=== PATIENT | male | born 1955 | race Caucasian/White ===

== ENCOUNTER → 2023-05-27 11:56 | Outpatient (REF) | payer MEDICARE, OTHER, SELFPAY ==
[2023-05-27 12:05] LABS: % Basophils 0.4 % (0-2); % Immature Granulocytes 2.6 % (0-0.5); % Lymphocytes 5.2 % (20.5-51.1); % Monocytes 3.9 % (1.7-9.3); % Neutrophils 87.9 % (42.2-75.2); Absolute Basophils 0.1 10^3/uL (0-0.2); Absolute Immature Granulocytes 0.6 10^3/uL (0-0.05); Absolute Lymphocytes 1.1 10^3/uL (1.2-3.4); Absolute Monocytes 0.8 10^3/uL (0.1-0.6); Absolute Neutrophils 18.6 10^3/uL (1.4-6.5); Hematocrit 27.9 % (39.0-52.0); Hemoglobin 9.6 g/dL (13.0-18.0); Mean Corp Hgb Conc. 34.4 g/dL (33.0-37.0); Mean Corpuscular Hgb 32.1 pg (27.0-31.0); Mean Corpuscular Volume 93.3 fL (80.0-94.0); Nucleated Red Blood Cells % 0 % (-); Platelet Count 278 10^3/uL (130-400); Red Blood Cell Count 2.99 10^6/uL (4.70-6.10); Red Cell Dist. Width 15.5 % (11.5-14.5); White Blood Cell Count 21.2 10^3/uL (4.8-10.8)
[2023-05-27 12:19] LABS: ALT (SGPT) 21 U/L (0-50); AST (SGOT) 30 U/L (17-59); Albumin 4.6 g/dl (3.5-5.0); Alkaline Phosphatase 60 U/L (38-126); Blood Urea Nitrogen 8 mg/dl (9-20); Calcium 9.2 mg/dl (8.4-10.2); Carbon Dioxide 29 mmol/L (22-30); Chloride 101 mmol/L (98-107); Glucose 131 mg/dl (70-99); Sodium 134 mmol/L (135-145); Total Bilirubin 0.5 mg/dl (0.2-1.3); Total Protein 6.9 g/dl (6.3-8.2); eGFR > 60.00
[2023-05-27 12:42] LABS: Potassium 3.5 mmol/L (3.5-5.1)
== END ==
LOC: OIDL 11:56
PROVIDERS: ATTENDING PHYSICIAN Internal Medicine Hematology & Oncology
DX: C78.7 Secondary malignant neoplasm of liver and intrahepatic bile duct (principal)
CPT/HCPCS: 80053; 85025

== ENCOUNTER → 2023-06-17 09:46 | Outpatient (REF) | payer MEDICARE, OTHER, SELFPAY ==
[2023-06-17 09:47] LABS: % Basophils 0.3 % (0-2); % Eosinophils 0.3 % (0-6); % Immature Granulocytes 0.4 % (0-0.5); % Lymphocytes 9.7 % (20.5-51.1); % Monocytes 6.7 % (1.7-9.3); % Neutrophils 82.6 % (42.2-75.2); Absolute Immature Granulocytes 0.1 10^3/uL (0-0.05); Absolute Lymphocytes 1.2 10^3/uL (1.2-3.4); Absolute Monocytes 0.8 10^3/uL (0.1-0.6); Absolute Neutrophils 9.9 10^3/uL (1.4-6.5); Hematocrit 26.6 % (39.0-52.0); Hemoglobin 8.9 g/dL (13.0-18.0); Mean Corp Hgb Conc. 33.5 g/dL (33.0-37.0); Mean Corpuscular Hgb 33.2 pg (27.0-31.0); Mean Corpuscular Volume 99.3 fL (80.0-94.0); Platelet Count 167 10^3/uL (130-400); Red Blood Cell Count 2.68 10^6/uL (4.70-6.10); Red Cell Dist. Width 15.5 % (11.5-14.5)
[2023-06-17 10:29] LABS: ALT (SGPT) 17 U/L (0-50); AST (SGOT) 26 U/L (17-59); Albumin 4.4 g/dl (3.5-5.0); Alkaline Phosphatase 74 U/L (38-126); Blood Urea Nitrogen 13 mg/dl (9-20); Carbon Dioxide 30 mmol/L (22-30); Chloride 100 mmol/L (98-107); Glucose 117 mg/dl (70-99); Potassium 3.3 mmol/L (3.5-5.1); Sodium 134 mmol/L (135-145); Total Bilirubin 0.5 mg/dl (0.2-1.3); Total Protein 6.6 g/dl (6.3-8.2); eGFR > 60.00
[2023-06-17 15:18] LABS: LDH 212 U/L (120-246)
== END ==
LOC: OIDL 09:46
PROVIDERS: ATTENDING PHYSICIAN Internal Medicine Hematology & Oncology
DX: C78.7 Secondary malignant neoplasm of liver and intrahepatic bile duct (principal)
CPT/HCPCS: 80053; 83615; 85025

== ENCOUNTER → 2023-07-01 10:40 | Outpatient (REF) | payer MEDICARE, OTHER, SELFPAY | LOC: HWRAD 10:40 | PROVIDERS: ATTENDING PHYSICIAN Internal Medicine Hematology & Oncology; FAMILY PHYSICIAN Family Medicine | DX: C34.11 Malignant neoplasm of upper lobe, right bronchus or lung (principal) | CPT/HCPCS: 71260; 74177; Q9967 ==

== ENCOUNTER 2023-07-13 18:22 | Inpatient (IN) | payer MEDICARE, OTHER, SELFPAY ==
[2023-07-13] VITALS (16 sets, daily range): BP systolic 107–155; BP diastolic 70–88; BMI 29.7
--- NOTE | 2023-07-13 12:30 | ED.GENMED ---
History of Present Illness
General
Chief Complaint: Abdominal Pain
Time Seen by Provider: 07/13/23 12:25
Travel History
Have you had any contact with someone who has COVID-19?: No
Do you have any symptoms of coronavirus? Fever > 100 degrees, chills, cough, shortness of breath, sore throat, loss of taste or smell, muscle aches, or headache?: No
History of Present Illness
History of Present Illness:
59-year-old male with history of stage IV lung cancer metastasized to the liver presents to the emergency department for evaluation of bilateral lower abdominal pain. Feels some urinary retention but was able to void on arrival to the emergency
department. He does report increased abdominal pain while voiding. No fevers or chills. Did have some vomiting on arrival to the ER. Last chemo treatment was 3 days ago. Prior abdominal surgeries include appendectomy
Past History
Past History
ED Past Medical History: Cancer (Lung cancer metastatic), GERD, HTN, Other (Myasthenia gravis on immune suppression was CellCept, Pancoast tumor) and Other (diverticulitis, myasthenia gravis)
ED Past Surgical History: Appendectomy, Orthopedic and Other (Tonsillectomy, vasectomy)
Social History
Tobacco: Former smoker
Alcohol: Occasional
Drug: None
Personal:
Living: with family
Employment: Retired
Family History
Family History: Hypertension
Review of Systems
Review of Systems
Allergies reviewed?: Yes
All Other Systems: ROS reviewed and negative except as documented in HPI and ROS
Phy Exam
Physical Exam
Physical Exam:
GEN: Well appearing, NAD, WDWN
Eyes: PERRLA, EOMs intact, no scleral icterus
HENT: NCAT, oral mucosa moist, no JVD, no cervical adenopathy.
Lungs: CTAB, no wheezes, rales, rhonchi, normal chest wall excursion
Cardiac: RRR, no M/R/G, no peripheral edema. Radial pulses 2+ bilat
Abdomen: Soft, tenderness vaguely to the left side of the abdomen, no rigidity or peritoneal signs
Neuro: AO x 3
MSK: No gross deformity or ecchymosis. No edema. No digital clubbing
Skin: No rashes, petechiae. Normal color, no pallor or jaundice.
Psych: Calm, cooperative, proper hygiene
Course
Orders/Labs/Results
Orders:
Orders
07/13/23 12:30
CT Abd/Pel (IV only)-DH only Urgent
Comment:
Reason For Exam: lower abd pain, dysuria
07/13/23 12:40
Urinalysis Reflex To Culture Urgent
Date Specimen was Collected: 07/13/23
Time Specimen was Collected: 12:08
Urine Microscopic Reflex Cult Urgent
07/13/23 13:28
CMP [Comprehensive Metabolic Panel] Urgent
Complete Blood Count/With Diff Urgent
Lipase Urgent
07/13/23 14:24
0.9% Sodium Chloride 1000 ml [Nss] 1,000 ml IV BOLUS
07/13/23 15:24
Piperacillin/Tazo 3.375 Gram [Zosyn] 3.375 gram in 50 ml IV NOW
07/13/23 15:30
HYDROmorphone [Dilaudid] 0.5 mg IV NOW STA
07/13/23 15:40
Lactic Acid Urgent
Blood Culture Q30M
LIZ Source: Blood/Venous
Specimen Description:
Blood Culture Q30M
LIZ Source: Blood/Venous
Specimen Description:
07/13/23 16:24
Type+Screen Urgent
PTT Urgent
Prothrombin Time Urgent
07/13/23 16:32
Ondansetron Injectable [Zofran] 4 mg IV NOW STA
Abnormal Lab Results
07/13/23 07/13/23 07/13/23
12:40 13:28 15:40
RBC 2.60 L 10^6/uL
(4.70-6.10)
Hgb 9.0 L g/dL
(13.0-18.0)
Hct 26.0 L %
(39.0-52.0)
MCV 100.0 H fL
(80.0-94.0)
MCH 34.6 H pg
(27.0-31.0)
RDW 14.8 H %
(11.5-14.5)
Abs Immat Gran (auto) 0.1 H 10^3/uL
(0-0.05)
Absolute Neuts (auto) 10.2 H 10^3/uL
(1.4-6.5)
Absolute Lymphs (auto) 0.2 L 10^3/uL
(1.2-3.4)
Immature Gran % 1.2 H %
(0-0.5)
Neutrophils % 95.5 H %
(42.2-75.2)
Lymphocytes % 2.1 L %
(20.5-51.1)
Monocytes % 0.9 L %
(1.7-9.3)
PT
APTT
Sodium 132 L mmol/L
(135-145)
Chloride 95 L mmol/L
(98-107)
BUN 27 H mg/dl
(9-20)
Creatinine 0.5 L mg/dL
(0.7-1.3)
Glucose 126 H mg/dl
(70-99)
Lactic Acid 2.6 H mmol/L
(0.7-2.0)
Leukocyte Esterase Rfl Trace A
(Negative)
07/13/23
16:24
RBC
Hgb
Hct
MCV
MCH
RDW
Abs Immat Gran (auto)
Absolute Neuts (auto)
Absolute Lymphs (auto)
Immature Gran %
Neutrophils %
Lymphocytes %
Monocytes %
PT 15.3 H Sec
(11.4-14.6)
APTT 37.4 H Sec
(23.4-35.0)
Sodium
Chloride
BUN
Creatinine
Glucose
Lactic Acid
Leukocyte Esterase Rfl
07/13/23 13:28
07/13/23 13:28
Vital Signs
Initial and Last Documented VS:
Initial Vital Signs
Temp Pulse Resp BP Pulse Ox
98.6 F 94 18 109/70 97
07/13/23 11:55 07/13/23 11:55 07/13/23 11:55 07/13/23 11:55 07/13/23 11:55
Last Documented Vital Signs
Temp Pulse Resp BP Pulse Ox
98.6 F 96 23 128/74 99
07/13/23 11:55 07/13/23 17:15 07/13/23 17:15 07/13/23 17:00 07/13/23 17:15
MDM/Problems Addressed
MDM/Problems Addressed:
59-year-old male with history of metastatic lung cancer currently on chemotherapy presents to the emergency department for evaluation of acute onset lower abdominal pain. He is unfortunately found to have perforated diverticulitis with
subdiaphragmatic free air. Patient was promptly given IV fluids and antibiotics, colorectal surgery service was consulted. Patient will ultimately need operative intervention but the timing is not certain at this time. Will be admitted to the
hospitalist service for further management given his numerous medical comorbidities. If the patient requires urgent operative intervention tonight will need anticoagulant reversal with Kcentra. Patient also has a history myasthenia gravis thus
need to avoid fluoroquinolone class to avoid acute exacerbation
*Critical Care Note
Total Time (30-74mins, 75-104mins- exclusive of procedures): 60 minutes
comment:
Critical care time: 60 minutes
Critical care time was exclusive of: Separately billable procedures, treating other patients, and teaching time
Critical care was necessary to treat or prevent imminent or life-threatening deterioration of the following conditions: Perforated diverticulitis, lactic acidosis
Critical care time spent personally by me on the following activities:
[x] Review of old charts
[x] Obtaining history from patient or surrogate
[x] Ordering and review of the laboratory studies
[x] Ordering and review of radiographic studies
[x] Ordering and performing treatments and interventions
[x] Patient patient's response to treatment
[x] Development of treatment plan with patient or surrogate
Update Note
Update Note:
1524: [facility] message sent to colorectal surgery regarding abnormal CT, by my interpretation shows perforated divertic w/ free air
1546: Still no response. Priority [facility] message sent to colorectal surgery
1548: D/W radiology, confirmed above findings
1551: Response from [facility], Dr Ny operating currently
1618: Response from colorectalDr Ny will be over to see pt after office hours
1736: Dr Ny at bedside. Will discuss options with patient. OR timing uncertain. If tonight will need Kcentra
ED Attending Note
-
Portions of this chart may have been created with voice recognition software.� Occasional wrong word or��sound alike� substitutions may have occurred due to the inherent limitations of voice recognition software.
Discharge Plan
Departure
Patient Disposition: Admit
Date of Disposition: 07/13/23
Time of Disposition: 17:36
Admit to: IMU
Presentation/result/management discussed w/ accepting MD/DO: Hospitalist
Discharge Problem:
Diverticulitis of intestine with perforation
Prescriptions:
No Action
metoprolol tartrate 25 MG tablet
25 mg PO BID
fluticasone propionate 1 SPRAY spray,suspension
2 spray intranasal DAILY
amlodipine 10 MG tablet
10 mg PO DAILY Qty: 30 0RF
furosemide 20 MG tablet
20 mg PO BID
therapeutic multivitamin Tablet
1 tab PO DAILY
acetaminophen [Tylenol Extra Strength] 500 mg Tablet
1,000 mg PO BID@1200,2200
folic acid 1 mg Tablet
1 mg PO DAILY
saw palmetto 450 mg Capsule
450 mg PO DAILY
guaifenesin [Mucinex] 1,200 mg Tablet Extended Release 12hr
1,200 mg PO QPM
guaifenesin [Mucus Relief ER] 600 MG tablet extended release 12hr
600 mg PO DAILY
atorvastatin 40 mg Tablet
40 mg PO DAILY@2000 30 Days Qty: 30 0RF
pantoprazole 40 mg Tablet,Delayed Release (Dr/Ec)
40 mg PO BID@0700,1600 30 Days Qty: 60 0RF
omega 5-vhl-frc-fish oil [Fish Oil] 1,200 (144-216) mg Capsule
1 cap PO DAILY
docusate sodium 100 MG capsule
100 mg PO BID
citalopram 10 mg tablet
10 mg PO DAILY
ondansetron HCl 8 mg tablet
8 mg PO Q8H PRN (Reason: nausea/vomiting)
prochlorperazine maleate 10 mg tablet
10 mg PO Q6H PRN (Reason: nausea)
lidocaine-prilocaine 2.5-2.5 % cream
1 applic topical DAILY PRN (Reason: prior to port access)
mycophenolate mofetil 500 mg tablet
1,000 mg PO BID
dexamethasone 4 mg tablet
4 mg PO UD
Rx Instructions:
Take twice daily the day before, and for 2 days after chemo.
pyridostigmine bromide 60 mg tablet
30 mg PO QID
fenofibrate 160 mg tablet
160 mg PO DAILY
apixaban 5 mg Tablet
2.5 mg PO BID
potassium chloride 20 mEq tablet extended release
20 meq PO DAILY
Referrals:
Todd Gamboa MD [Family Provider] -
Interventions
Interventions:
*Risk Screen - Suicide Last Done: 07/13/23 11:55
*General Assessment Last Done: 07/13/23 11:55
*Neglect/Abuse Screening Last Done: 07/13/23 11:55
ED- Fall Risk Assessment Last Done: 07/13/23 12:16
*ED COVID-19 Vaccine History Last Done: 07/13/23 11:55
YU-Lhdwun-Hnkmskogqb Assessment Last Done: 07/13/23 12:16
[2023-07-13 12:57] LABS: Urine Albumin Trace (Neg - Trace); Urine Bilirubin Negative (Negative); Urine Character Clear (Clear); Urine Color Amber; Urine Glucose Negative (Negative); Urine Ketone Negative (Negative); Urine Leukocyte Trace (Negative); Urine Nitrite Negative (Negative); Urine Occult Blood Negative (Negative); Urine Urobilinogen Negative (Neg - 1+)
[2023-07-13 13:14] LABS: Urine Mucus Few
[2023-07-13 13:15] LABS: Urine Red Blood Cell 0-2 /HPF (0-2); Urine White Cell 0-2 /HPF (0-5)
[2023-07-13 13:34] LABS: % Basophils 0.3 % (0-2); % Immature Granulocytes 1.2 % (0-0.5); % Lymphocytes 2.1 % (20.5-51.1); % Monocytes 0.9 % (1.7-9.3); % Neutrophils 95.5 % (42.2-75.2); Absolute Immature Granulocytes 0.1 10^3/uL (0-0.05); Absolute Lymphocytes 0.2 10^3/uL (1.2-3.4); Absolute Monocytes 0.1 10^3/uL (0.1-0.6); Absolute Neutrophils 10.2 10^3/uL (1.4-6.5); Mean Corp Hgb Conc. 34.6 g/dL (33.0-37.0); Mean Corpuscular Hgb 34.6 pg (27.0-31.0); Mean Platelet Volume 9.5 fL (7.4-10.4); Nucleated Red Blood Cells % 0 % (-); Platelet Count 169 10^3/uL (130-400); Red Cell Dist. Width 14.8 % (11.5-14.5); White Blood Cell Count 10.7 10^3/uL (4.8-10.8)
[2023-07-13 13:46] LABS: ALT (SGPT) 28 U/L (0-50); AST (SGOT) 50 U/L (17-59); Albumin 4.3 g/dl (3.5-5.0); Alkaline Phosphatase 45 U/L (38-126); Blood Urea Nitrogen 27 mg/dl (9-20); Calcium 9.5 mg/dl (8.4-10.2); Carbon Dioxide 28 mmol/L (22-30); Chloride 95 mmol/L (98-107); Glucose 126 mg/dl (70-99); Potassium 3.8 mmol/L (3.5-5.1); Sodium 132 mmol/L (135-145); Total Bilirubin 1.1 mg/dl (0.2-1.3); Total Protein 6.5 g/dl (6.3-8.2); eGFR > 60.00
[2023-07-13 14:08] LABS: Lipase 32 U/L (23-300)
[2023-07-13] MEDS: NSS 1000 IV ×2 (14:28→21:37)
[2023-07-13] MEDS: ZOSYN 50 IV ×2 (15:43→21:52)
[2023-07-13] MEDS: DILAUDID 0.5 MG IV ×2 (15:43→22:32)
[2023-07-13 16:05] LABS: Lactic Acid 2.6 mmol/L (0.7-2.0)
[2023-07-13] MEDS: ZOFRAN 4 MG IV (16:36)
[2023-07-13 16:45] LABS: INR 1.23; PT 15.3 Sec (11.4-14.6)
[2023-07-13 16:47] LABS: APTT 37.4 Sec (23.4-35.0)
--- NOTE | 2023-07-13 18:07 | HPS.HSE ---
Family Physician
-
Family Physician: Todd Gamboa
Chief Complaint
-
abdominal pain
History of Present Illness
67-year-old male past medical history of diverticulitis, stage IV lung cancer with metastases to liver on chemotherapy, SVC syndrome, hypertension, GERD, myasthenia gravis, chronic lower extremity edema, BPH, hyperlipidemia presenting for left lower
quadrant abdominal pain which started yesterday. He did have a fever and chills today. He did have nausea and a little bit of vomiting of mucus. He did have a bowel movement yesterday.
Patient last received chemotherapy 3 days ago.
He did have some blood in the urine today which is since resolved. He last took Eliquis this morning.
Medical History
Past Medical History
Past Medical History: Reports Other (diverticulitis, stage IV lung cancer with metastases to liver on chemotherapy, SVC syndrome, hypertension, GERD, myasthenia gravis, chronic lower extremity edema, BPH, hyperlipidemia)
Past Surgical History: Reports Other (Appendectomy, Orthopedic and Other (Tonsillectomy, vasectomy))
Social History
Tobacco: Former Smoker
Alcohol: Occasional
Drug: None
Family History
Family History: Not pertinent
Allergies / Home Medications
Allergies reflects when Allergies were last updated in [facility].
Home Medications with original date entered in [facility]
Allergy/Medication List:
Allergies
Allergy/AdvReac Type Severity Reaction Status Date / Time
No Known Allergies Allergy Verified 07/13/23 11:58
Home Medications
metoprolol tartrate 25 mg tablet 25 mg PO BID Blood pressure 10/10/17
fluticasone propionate 50 mcg/actuation nasal spray,suspension 2 spray intranasal DAILY Congestion 04/13/20
amlodipine 10 mg tablet 10 mg PO DAILY #30 tabs 04/24/20
furosemide 20 mg tablet 20 mg PO BID Fluid retention/Swelling 05/01/20
acetaminophen 500 mg tablet (Tylenol Extra Strength) 1,000 mg PO BID@1200,2200 Pain 02/02/23
folic acid 1 mg tablet 1 mg PO DAILY Supplement 02/02/23
guaifenesin 1,200 mg tablet, extended release 12 hr (Mucinex) 1,200 mg PO QPM Cough 02/02/23
guaifenesin 600 mg tablet, extended release 12 hr (Mucus Relief ER) 600 mg PO DAILY Cough 02/02/23
saw palmetto 450 mg capsule 450 mg PO DAILY Supplement 02/02/23
therapeutic multivitamin 1 tab PO DAILY Supplement 02/02/23
atorvastatin 40 mg tablet 40 mg PO DAILY@1999 30 days #30 tabs 02/07/23
pantoprazole 40 mg tablet,delayed release 40 mg PO BID@0700,1600 30 days #60 tabs 02/07/23
omega 4-pyf-qif-fish oil 1,200 mg (144 mg-216 mg) capsule (Fish Oil) 1 cap PO DAILY 03/03/23
docusate sodium 100 mg capsule 100 mg PO BID 03/06/23
apixaban 5 mg tablet 2.5 mg PO BID 07/13/23
citalopram 10 mg tablet 10 mg PO DAILY 07/13/23
dexamethasone 4 mg tablet 4 mg PO UD 07/13/23
fenofibrate 160 mg tablet 160 mg PO DAILY 07/13/23
lidocaine-prilocaine 2.5 %-2.5 % topical cream 1 applic topical DAILY PRN prior to port access 07/13/23
mycophenolate mofetil 500 mg tablet 1,000 mg PO BID 07/13/23
ondansetron HCl 8 mg tablet 8 mg PO Q8H PRN nausea/vomiting 07/13/23
potassium chloride 20 mEq tablet,extended release 20 meq PO DAILY 07/13/23
prochlorperazine maleate 10 mg tablet 10 mg PO Q6H PRN nausea 07/13/23
pyridostigmine bromide 60 mg tablet 30 mg PO QID 07/13/23
Review of Systems
-
History Source: Patient
A 12 point ROS was completed and negative except as noted: Yes
Constitutional: Reports No Symptoms
EENT: Reports No Symptoms
Respiratory: Reports No Symptoms
Cardiac: Reports No Symptoms
Abdomen/GI: Reports See HPI
: Reports No Symptoms
Musculoskeletal: Reports No Symptoms
Skin: Reports No Symptoms
Neurological: Reports No Symptoms
Endocrine: Reports No Symptoms
Hematologic/Lymphatic: Reports No Symptoms
Psych: Reports No Symptoms
Physical Exam
Vital Signs
Vital Signs
Temp Pulse Resp BP Pulse Ox
98.6 F 97 22 128/74 97
07/13/23 11:55 07/13/23 17:30 07/13/23 17:30 07/13/23 17:00 07/13/23 17:30
Physical Exam
General: Well Developed, Well Nourished and No Apparent Distress
HEENT: NormoCephalic, Moist mucous membranes and Atraumatic
Respiratory: Clear
Cardiac: S1/S2 and Regular Rhythm; No Murmur or Rub
GI: Soft, Non Distended, Normal Bowel Sounds and Tender (rebound tenderness diffusely ); No Organomegaly
Rectal: Deferred by Provider
Musculoskeletal: No Clubbing, No Cyanosis and No Edema
Skin: No Rash
Neuro: Nonfocal/grossly intact
Laboratory Results
-
07/13/23 13:28
07/13/23 13:28
Laboratory Results
PT 15.3 Sec (11.4-14.6) H 07/13/23 16:24
INR 1.23 07/13/23 16:24
APTT 37.4 Sec (23.4-35.0) H 07/13/23 16:24
Lactic Acid 2.6 mmol/L (0.7-2.0) H 07/13/23 15:40
Total Bilirubin 1.1 mg/dl (0.2-1.3) 07/13/23 13:28
AST 50 U/L (17-59) 03/18/24 13:28
ALT 28 U/L (0-50) 07/13/23 13:28
Alkaline Phosphatase 45 U/L (38-126) 07/13/23 13:28
Lipase 32 U/L (23-300) 07/13/23 13:28
Data Reviewed
-
Lab Data: Labs Reviewed by me
Old Records: Reviewed
Impression/Plan
-
IMPRESSION:
PLAN:
# Diverticulitis with abscess/perforation
-CT abdomen pelvis shows acute diverticulitis with 3.5 cm fluid collection at the anterior margin of the sigmoid colon and free intraperitoneal air
-N.p.o. including oral medications due to plan for potential surgery tonight
-Check blood cultures
-IV fluids
-Hold Lasix
-Zosyn
-Hold Eliquis
-Dilaudid for pain
-Colorectal surgery consulted. Plan for OR either tonight or tomorrow
-Colorectal recommending Kcentra
# Resolved incidence of hematuria
-Check urinalysis
-Outpatient follow-up with urology
-Eliquis held for now
#Progressive macrocytic anemia
-Check iron studies, B12 and folate
-Hold folate
Stage IV lung cancer with metastasis to liver on chemotherapy
-On dexamethasone with chemotherapy
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
-Hold Eliquis
Essential hypertension
-Hold amlodipine, metoprolol
GERD
-Hold Protonix
Myasthenia gravis
-Hold pyridostigmine, mycophenolate
Chronic lower extremity edema
-Hold Lasix
BPH
Hyperlipidemia
-Continue statin, fenofibrate
Anxiety/depression
-Hold citalopram
Full code
DVT prophylaxis�SCDs
N.p.o.
--- NOTE | 2023-07-13 18:22 | CON.CRS ---
Consultation
-
Date/Time Consultation Requested: 07/13/23 @15:46
Date/Time Consultation Performed: 07/13/23 @17:30
Requesting Provider: Freddie Monae PA-C
Performing Provider: Wale Ny MD
Reason for Consultation: Perforated sigmoid diverticulitis
Medical History
-
Chief Complaint: Abdominal pain
History of Present Illness:
67-year-old male with metastatic lung cancer currently on chemotherapy and Eliquis, myasthenia gravis, SVC syndrome, hypertension, who presents to the emergency room with abdominal pain that began yesterday. He has a history of diverticulitis in
the past and he has been having some irregular bowels with intermittent abdominal pain possibly due to chemotherapy. The pain became excruciating associated with fevers and chills today. At present his stools are loose and he is having some
nausea. He is currently on Taxotere and Cyramza and his last dose was 3 days ago. He is on Eliquis 2.5mg bid for SVC syndrome with thrombus in the SVC and right internal jugular; his last dose was this morning.
In the ER he is afebrile and his pulse is around 100. His blood pressure is stable and he is oxygenating well. His white count is 10.7 and his hemoglobin is 9.0. A CT scan of the abdomen pelvis with IV contrast only reveals findings consistent
with acute sigmoid diverticulitis with 3.5 cm pericolonic abscess and free intra-abdominal air. There is also known liver metastases.
Past Medical History
Past Medical History: Cancer (lung cancer metastatic to liver), Diverticulitis, HTN and Other (Myasthenia gravis, SVC syndrome)
Past Surgical History: Appendectomy
Social History
Tobacco: Former Smoker
Alcohol: Occasional
Drug: None
Personal:
Living: With Family
Family History
Family History: Reviewed & Not Pertinent
Allergies / Home Medications
Allergy/AdvReac Type Severity Reaction Status Date / Time
No Known Allergies Allergy Verified 07/13/23 11:58
Medication Instructions Recorded Confirmed Type
metoprolol tartrate 25 mg tablet 25 mg PO BID Blood pressure 10/10/17 07/13/23 History
fluticasone propionate 50 2 spray intranasal DAILY Congestion 04/13/20 07/13/23 History
mcg/actuation nasal
spray,suspension
amlodipine 10 mg tablet 10 mg PO DAILY #30 tabs 04/24/20 07/13/23 Rx
furosemide 20 mg tablet 20 mg PO BID Fluid 05/01/20 07/13/23 History
retention/Swelling
acetaminophen 500 mg tablet 1,000 mg PO BID@1200,2200 Pain 02/02/23 07/13/23 History
(Tylenol Extra Strength)
folic acid 1 mg tablet 1 mg PO DAILY Supplement 02/02/23 07/13/23 History
guaifenesin 1,200 mg tablet, 1,200 mg PO QPM Cough 02/02/23 07/13/23 History
extended release 12 hr (Mucinex)
guaifenesin 600 mg tablet, 600 mg PO DAILY Cough 02/02/23 07/13/23 History
extended release 12 hr (Mucus
Relief ER)
saw palmetto 450 mg capsule 450 mg PO DAILY Supplement 02/02/23 07/13/23 History
therapeutic multivitamin 1 tab PO DAILY Supplement 02/02/23 07/13/23 History
atorvastatin 40 mg tablet 40 mg PO DAILY@1999 30 days #30 02/07/23 07/13/23 Rx
tabs
pantoprazole 40 mg tablet,delayed 40 mg PO BID@0700,1600 30 days #60 02/07/23 07/13/23 Rx
release tabs
omega 9-lnc-xku-fish oil 1,200 mg 1 cap PO DAILY 03/03/23 07/13/23 History
(144 mg-216 mg) capsule (Fish Oil)
docusate sodium 100 mg capsule 100 mg PO BID 03/06/23 07/13/23 History
apixaban 5 mg tablet 2.5 mg PO BID 07/13/23 07/13/23 History
citalopram 10 mg tablet 10 mg PO DAILY 07/13/23 07/13/23 History
dexamethasone 4 mg tablet 4 mg PO UD 07/13/23 07/13/23 History
fenofibrate 160 mg tablet 160 mg PO DAILY 07/13/23 07/13/23 History
lidocaine-prilocaine 2.5 %-2.5 % 1 applic topical DAILY PRN prior 07/13/23 07/13/23 History
topical cream to port access
mycophenolate mofetil 500 mg tablet 1,000 mg PO BID 07/13/23 07/13/23 History
ondansetron HCl 8 mg tablet 8 mg PO Q8H PRN nausea/vomiting 07/13/23 07/13/23 History
potassium chloride 20 mEq 20 meq PO DAILY 07/13/23 07/13/23 History
tablet,extended release
prochlorperazine maleate 10 mg 10 mg PO Q6H PRN nausea 07/13/23 07/13/23 History
tablet
pyridostigmine bromide 60 mg tablet 30 mg PO QID 07/13/23 07/13/23 History
Review of Systems
-
History Source: Patient
All other systems: Negative unless noted
A 10 point review of systems was completed, and was negative except as per HPI.
Physical Exam
Vital Signs
Temp 98.6 F 07/13/23 11:55
Pulse 97 07/13/23 17:30
Resp Rate 22 07/13/23 17:30
Blood pressure 128/74 07/13/23 17:00
SaO2 97 07/13/23 17:30
07/12/23 07/13/23 07/14/23
06:59 06:59 06:59
Actual Weight 91.3 kg
Lab Results / Allergies
07/13/23 13:28
07/13/23 13:28
WBC 10.7 10^3/uL (4.8-10.8) 07/13/23 13:28
Hgb 9.0 g/dL (13.0-18.0) L 07/13/23 13:28
Hct 26.0 % (39.0-52.0) L 07/13/23 13:28
Plt Count 169 10^3/uL (130-400) 07/13/23 13:28
Abs Immat Gran (auto) 0.1 10^3/uL (0-0.05) H 07/13/23 13:28
Neutrophils % 95.5 % (42.2-75.2) H 07/13/23 13:28
Allergy/AdvReac Type Severity Reaction Status Date / Time
No Known Allergies Allergy Verified 07/13/23 11:58
Physical Exam
General: Well Developed, Well Nourished and Pain
HEENT: Anicteric
Respiratory: Clear
GI: Soft and Tender (In all 4 quadrants with peritonitis, worse in the left lower quadrant)
Musculoskeletal: Edema
Skin: Warm
Neuro: Awake and Alert
Data Reviewed
-
CT Scan: Image Personally Visualized and interpreted, Report Reviewed by me, Discussed with Patient and Discussed with Family
Labs: Labs Reviewed by me, Discussed with Patient and Discussed with Family
Total Time Spent with Patient (in minutes): 80
Assessment / Plan
-
Perforated sigmoid diverticulitis with peritonitis in a patient on chemotherapy for metastatic lung cancer and anticoagulation.
I reviewed the current findings with the patient, his and daughter and discussed the treatment options. We discussed nonoperative management with bowel rest and antibiotics and surgery if his condition worsens versus surger tonight. Without
surgery there is a risk that his condition worsens. Surgery will involve a colostomy which is technically temporary, but could be permanent given his underlying condition. He is at high risk for surgery. Risks of surgery include, but are not
limited to, bleeding, (especially in light of his OAC), infection, adhesions, hernias, DVT, injury to other structures, stoma complications, recurrent infection, poor wound healing given his recent chemotherapy, cardiopulmonary complications with
prolonged ventilation, and even . I reviewed the typical recovery both in and out of the hospital and after he discussed it with his family, he wishes to proceed with surgery since his pain is not manageable. Kcentra and antibiotics have been
ordered as well as type and screen. He will be monitored postoperatively either in the ICU or in the IMU depending upon his ventilation status. There was ample time for discussion, all questions answered and arrangements are in progress for the OR.
[2023-07-13 19:05] LABS: INR 1.24; PT 15.4 Sec (11.4-14.6)
[2023-07-13 19:06] LABS: APTT 39.6 Sec (23.4-35.0); Fibrinogen 421 MG/DL (199-459)
--- NOTE | 2023-07-13 21:23 | W.IMMPOSTOP ---
Surgical Immed Post Op Note
-
Primary Surgeon: Wale Ny MD
Endocrinology Teacher: ERAN Springer
Pre-op Diagnosis: Perforated sigmoid diverticulitis
Post-op Diagnosis: Perforated sigmoid diverticulitis
Procedure Performed: Exploratory laparotomy, sigmoid resection and end colostomy (Smith's procedure)
Anesthesia Type: GETA, TYRONE block
Specimen / Cultures: Aerobic and anaerobic cultures
Sigmoid colon (suture is distal)
Estimated Blood Loss: 20 cc
Complications: None
Operative Findings: Diffuse purulent peritonitis (Hinchey III)
Perforated mid sigmoid diverticulitis
NG tube in the fundus of the stomach
Patient's family updated in the waiting room.
--- NOTE | 2023-07-13 22:50 | PTCARENOTE ---
Received pt from [facility]. Pt is AAOx3, [place]. Sinus tach on the monitor. On 2L NC O2 sat 99%, lungs clear, tachypneic. Silva in place for critical I&Os. Colostomy in place. R nare NG in place with continuous suction. Midline abd incision dressing in
place. SCDs in place. NS infusing @ 100 ml/hr. Pt c/o abd pain, PRN pain meds given (see MAR). Pt is laying in bed with call pereira in reach.
[2023-07-13 22:58] LABS: Iron 217 ug/dl (49-181)
[2023-07-13 23:08] LABS: Percent Saturation 67 % (20-50); Total Iron Binding Capacity 322 ug/dl (261-462)
[2023-07-14] VITALS (23 sets, daily range): BP systolic 113–141; BP diastolic 78–91; BMI 29.7
[2023-07-14] MEDS: DILAUDID 0.5 MG IV ×5 (02:32→21:08)
[2023-07-14 03:23] LABS: Folate > 20.0 ng/ml (2.76-20); Vitamin B12 > 1000 pg/ml (239-931)
[2023-07-14] MEDS: ZOSYN 50 IV ×4 (04:09→21:08)
[2023-07-14 04:23] LABS: Hematocrit 28.4 % (39.0-52.0); Hemoglobin 9.6 g/dL (13.0-18.0); Mean Corp Hgb Conc. 33.8 g/dL (33.0-37.0); Mean Corpuscular Hgb 34.2 pg (27.0-31.0); Mean Corpuscular Volume 101.1 fL (80.0-94.0); Mean Platelet Volume 9.5 fL (7.4-10.4); Nucleated Red Blood Cells % 0 % (-); Platelet Count 154 10^3/uL (130-400); Red Blood Cell Count 2.81 10^6/uL (4.70-6.10); Red Cell Dist. Width 14.8 % (11.5-14.5)
[2023-07-14 04:37] LABS: White Blood Cell Count 2.3 10^3/uL (4.8-10.8)
[2023-07-14 05:49] LABS: ALT (SGPT) 25 U/L (0-50); AST (SGOT) 42 U/L (17-59); Albumin 3.6 g/dl (3.5-5.0); Alkaline Phosphatase 40 U/L (38-126); Blood Urea Nitrogen 23 mg/dl (9-20); Calcium 7.9 mg/dl (8.4-10.2); Carbon Dioxide 27 mmol/L (22-30); Chloride 100 mmol/L (98-107); Estimated Creatinine Clearance 118 ml/min; Glucose 161 mg/dl (70-99); Sodium 131 mmol/L (135-145); Total Bilirubin 1.4 mg/dl (0.2-1.3); Total Protein 5.9 g/dl (6.3-8.2); eGFR > 60.00
[2023-07-14] MEDS: NSS 1000 IV (06:04)
--- NOTE | 2023-07-14 06:38 | W.PN.HOSP.TC ---
Today's Communication/Plan
-
.
Assessment / Plan
Assessment / Plan
Physical Exam
General: No Apparent Distress
HEENT: Normocephalic, Moist mucous membranes and Atraumatic. NG Tube
Respiratory: Clear
Cardiac: S1/S2
GI: Soft, laparotomy sutures noted, no bleeding
Rectal: no rectal bleeding
Musculoskeletal: No Clubbing, No Cyanosis and No Edema
Skin: No Rash
Neuro: Nonfocal/grossly intact
Psych: calm
# Sepsis POA with tachycardia, neutrophilia then leukopenia and diverticulitis with abscess/perforation
-CT abdomen pelvis shows acute diverticulitis with 3.5 cm fluid collection at the anterior margin of the sigmoid colon and free intraperitoneal air
-Status post exploratory laparotomy with sigmoid resection/and colostomy (Melo's procedure) by Dr. Ny on07/13/23. No complications reported.
Continue with n.p.o. bowel rest, IV fluid, IV PPI.
-Dilaudid for pain. Antinausea medication
Status post Kcentra
-Appreciate surgery & ID help
# History of metastatic lung cancer on chemotherapy
Primary oncologist Dr. Daniels
Recent treatment in outpatient setting
Continue supportive care
Appreciate oncology input
# Anemia of cancer/inflammation/anemia of chronic disease
Transfuse blood if hemoglobin less than 8
# Resolved incidence of hematuria
-Check urinalysis
-Outpatient follow-up with urology
-Eliquis held for now
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
-Hold Eliquis
#Essential hypertension
Will change metoprolol to intravenous, continue monitoring on telemetry
#GERD
Change to IV Protonix
#Myasthenia gravis
-Hold mycophenolate
will d/w surgery to restart pyridostigmine if possible
#Chronic lower extremity edema
-Hold Lasix
BPH
Hyperlipidemia
-Continue statin, fenofibrate
Anxiety/depression
-Hold citalopram
Full code
DVT prophylaxis�SCDs
N.p.o.
�Total time spent to see the patient, examine the patient on the floor, review data and lab results, discuss treatment plan with the patient, nursing staff around 55 minutes
Anticipated Discharge: > 48 hours
Subjective/Interval History
-
Date of Service: July 14, 2023
He has some abd pain and nausea
no chest pain
Afebrile over night
Objective Data
-
Labs:
Laboratory Results
07/13/23 07/14/23
18:17 04:10
WBC 2.3 L*
Hgb 9.6 L
Hct 28.4 L
Plt Count 154
PT 15.4 H
INR 1.24
APTT 39.6 H
Sodium 131 L
Potassium 4.0
Chloride 100
Carbon Dioxide 27
BUN 23 H
Creatinine 0.6 L
Glucose 161 H
Calcium 7.9 L D
Total Bilirubin 1.4 H
AST 42
ALT 25
Alkaline Phosphatase 40
Vital Signs:
Vital Signs
Temp Pulse Resp BP Pulse Ox
97.6 F 96 20 132/91 98
07/14/23 03:59 07/14/23 06:00 07/14/23 06:00 07/14/23 06:00 07/14/23 06:26
I&O
07/12/23 07/13/23 07/14/23
06:59 06:59 06:59
Intake Total 1290 / 1290
Output Total 800 / 800
Balance 490 / 490
[2023-07-14] MEDS: ZOFRAN 4 MG IV (07:22)
[2023-07-14 08:06] LABS: Absolute Neutrophils -Man Diff 2.1 10^3/uL (1.4-6.5); Band Neutrophils 8 % (0-3); Lymphocytes 3 % (20-51); Monocytes 1 % (2-9); Segmented Neutrophils 85 % (42-75)
[2023-07-14 08:07] LABS: Anisocytosis Slight; Hypochromasia 2+; Macrocytosis Few; Myelocytes 3 % (-); Normal RBC Morphology No; Platelets Checked Yes; Total Cells Counted 100
--- NOTE | 2023-07-14 08:26 | CON.ONC ---
Addendum entered and electronically signed by Neema Daniels MD 07/14/23 14:18:
67 yo M w/ stage IV lung cancer, recently initiated 2nd line therapy w/ Taxotere and Cytoxan, who was sent to the ER from office yesterday for fairly acute onset abd pain. He was found to have perforated diverticulitis, for which he underwent
sigmoid resection and end colostomy (Smith's procedure) on 07/13/23. He was found to have diffuse purulent peritonitis. This am, he reports ongoing pain, not relieved w/ q4h dilaudid. NG tube in place. He has myasthenia gravis, on mestinon, though
he's recently been reducing his doses on his own because of some nausea, and now reports jaw and mouth weakness with eating and speaking.
PMH also noted for myasthenia, and SVC thrombus at diagnosis
CBC noted for WBC of 2.3 today, ANC pending. Hgb is 9.6, platelets 154.
- post-op mgmt per surgery, abx, NPO, etc. He's at increased risk for post-op bleeding and poor wound healing because of recent Cyramza
- pain control
- neurology c/s for myasthenia, with jaw/mouth weakness
- monitor CBC daily, will start daily GCSF (s/p cycle #1 taxotere/cyramza on 07/09)
- Resume low dose Eliquis when able
- will follow along, and arrange onc f/u after discharge
Original Note:
Impression
Impression
Metastatic lung cancer to liver on chemotherapy (Taxotere, Cyramza)
Acute urinary retention
Acute abdominal pain, nausea, vomiting
Acute perforated sigmoid diverticulitis
Diffuse purulent peritonitis
Chronic anticoagulation (Eliquis)
Hx SVC syndrome
Hx myasthenia gravis
Plan
Plan
POD#1 ex lap, sigmoid resection, end colostomy (Smith's procedure), EBL 20cc
07/13 WBC 2.3, Hgb 9.6
Monitor CBC with diff daily; monitor for neutropenia
Transfuse as needed to maintain Hgb >7, PLT >20
Last treatment of Taxotere, Cyramza: Thu07/10/23 (with Aranesp)
Initiate Granix 480mcg SQ daily and monitor WBC/ANC
IV iron is not indicated at this time
Pain and nausea management
Continue supportive care
Eliquis resumption when able
Neurology consult for history of MG on Pyridostigmine (Mestinon)
[facility] office has been updated regarding patient's clinical status.
We will follow.
Patient History
History of Present Illness
Kole Sears is a 67 year old male known to Dr. Daniels with [facility] for history of lung cancer with recent increase in liver mets. He received cycle 1 of Cyramza/Taxotere on 07/09. His noted poor PO intake and dehydration after treatment.
Patient reported acute nausea, lower abdominal pain, and minimal urine output. He was unable to walk due to the severe pain. His son brought him to the [facility] office urgently for evaluation on 07/13/23 due to acute symptoms. He was instructed to
proceed to the ER. He reported LLQ pain, fever, chills, nausea, and one episode of vomiting to ER staff. Last BM reported 07/11. He is managed on Eliquis.
Past-Medical/Surgical History
Non-small cell lung cancer with liver mets on chemotherapy (Taxotere, Cyramza)
SVC syndrome, thrombus in SVC/right IJ at diagnosis
Myasthenia gravis (mycophenolate, pyridostigmine)
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
Anemia secondary to chemotherapy
Diverticulosis/diverticulitis
Hypertension
Hyperlipidemia
Chronic LE edema
BPH
GERD
COPD
CLAUDIO
Hx hiatal hernia
Tonsillectomy
Appendectomy
Vasectomy
Left shoulder replacement
Patient Medication
Medication Instructions Recorded Confirmed Last Taken Type
metoprolol tartrate 25 mg tablet 25 mg PO BID Blood pressure 10/10/17 07/13/23 07/13/23 History
fluticasone propionate 50 2 spray intranasal DAILY Congestion 04/13/20 07/13/23 07/13/23 History
mcg/actuation nasal
spray,suspension
amlodipine 10 mg tablet 10 mg PO DAILY #30 tabs 04/24/20 07/13/23 07/13/23 Rx
furosemide 20 mg tablet 20 mg PO BID Fluid 05/01/20 07/13/23 07/13/23 History
retention/Swelling
acetaminophen 500 mg tablet 1,000 mg PO BID@1200,2200 Pain 02/02/23 07/13/23 07/12/23 History
(Tylenol Extra Strength)
folic acid 1 mg tablet 1 mg PO DAILY Supplement 02/02/23 07/13/23 07/13/23 History
guaifenesin 1,200 mg tablet, 1,200 mg PO QPM Cough 02/02/23 07/13/23 07/12/23 History
extended release 12 hr (Mucinex)
guaifenesin 600 mg tablet, 600 mg PO DAILY Cough 02/02/23 07/13/23 07/13/23 History
extended release 12 hr (Mucus
Relief ER)
saw palmetto 450 mg capsule 450 mg PO DAILY Supplement 02/02/23 07/13/23 07/13/23 History
therapeutic multivitamin 1 tab PO DAILY Supplement 02/02/23 07/13/23 07/13/23 History
atorvastatin 40 mg tablet 40 mg PO DAILY@2000 30 days #30 02/07/23 07/13/23 07/12/23 Rx
tabs
pantoprazole 40 mg tablet,delayed 40 mg PO BID@0700,1600 30 days #60 02/07/23 07/13/23 07/13/23 Rx
release tabs
omega 7-xck-fps-fish oil 1,200 mg 1 cap PO DAILY 03/03/23 07/13/23 07/13/23 History
(144 mg-216 mg) capsule (Fish Oil)
docusate sodium 100 mg capsule 100 mg PO BID 03/06/23 07/13/23 07/13/23 History
apixaban 5 mg tablet 2.5 mg PO BID 07/13/23 07/13/23 07/13/23 History
citalopram 10 mg tablet 10 mg PO DAILY 07/13/23 07/13/23 07/13/23 History
dexamethasone 4 mg tablet 4 mg PO UD 07/13/23 07/13/23 Unknown History
fenofibrate 160 mg tablet 160 mg PO DAILY 07/13/23 07/13/23 07/13/23 History
lidocaine-prilocaine 2.5 %-2.5 % 1 applic topical DAILY PRN prior 07/13/23 07/13/23 Unknown History
topical cream to port access
mycophenolate mofetil 500 mg tablet 1,000 mg PO BID 07/13/23 07/13/23 07/13/23 History
ondansetron HCl 8 mg tablet 8 mg PO Q8H PRN nausea/vomiting 07/13/23 07/13/23 Unknown History
potassium chloride 20 mEq 20 meq PO DAILY 07/13/23 07/13/23 07/13/23 History
tablet,extended release
prochlorperazine maleate 10 mg 10 mg PO Q6H PRN nausea 07/13/23 07/13/23 Unknown History
tablet
pyridostigmine bromide 60 mg tablet 30 mg PO QID 07/13/23 07/13/23 07/13/23 07:00 History
Active Medications
Generic Name Dose Route Start Last Admin
Trade Name Freq PRN Reason Stop Dose Admin
Hydromorphone HCl 0.5 mg 07/13/23 20:48 07/14/23 07:22
Hydromorphone 0.5 Mg/0.5 Ml Syringe IV 07/27/23 20:47 0.5 mg
Q4HPRN PRN Administration
severe pain
Sodium Chloride 1,000 mls @ 100 mls/hr 07/13/23 20:48 07/14/23 06:04
Nss IV 1,000 mls
.Q10H NISSA Administration
Piperacillin Sod/Tazobactam Sod 3.375 gram in 50 mls @ 100 mls/hr 07/13/23 22:00 07/14/23 04:09
Zosyn IV 50 mls
Q6H NISSA Administration
Ondansetron HCl 4 mg 07/13/23 20:48 07/14/23 07:22
Ondansetron 4 Mg/2 Ml Vial IV 08/10/23 20:47 4 mg
Q6HPRN PRN Administration
nausea and vomiting
Sodium Chloride 0 flush 07/13/23 21:00
Sodium Chloride 0.9% (Flush) Syringe IV 08/10/23 20:59
PER PROTOCOL NISSA
Review of Systems
-
Unable to obtain full review of systems at this time due to: Acuity and Other (hard of hearing)
History Source: Patient, Family, Coordinated Provider, Records and Other (nursing)
Constitutional: Reports Weakness
EENT: Reports No Symptoms
Respiratory: Reports No Symptoms
Cardiac: Reports No Symptoms
GI: Reports Abdominal Pain and Nausea
Breast: Reports N/A
: Reports No Symptoms
Musculoskeletal: Reports No Symptoms
Skin: Reports No Symptoms
Neuro: Reports No Symptoms
Endocrine: Reports No Symptoms
Hematologic/Lymphatic: Reports No Symptoms
Allergy / Immunology: Reports No Symptoms
Psych: Reports No Symptoms
Physical Exam
-
Patient resting in bed. Family at bedside. Nursing at bedside. Patient reporting pain and nausea.
General: Well Developed, Well Nourished, No Apparent Distress, Comfortable and Pain; Negative Fever or Chills
HEENT: Negative Jaundice
Cardiology: S1, S2 and Other (tachycardia)
GI: Other (rare bowel sounds, midline incision with aquacell dressing, old drainage noted. LLQ ostomy in place, red/budded stoma, no flatus or stool output.)
Genito-Urinary: Silva and Other (delfina urine output)
Musculoskeletal: No Edema
Extremities: Pulses Present
Neurology: Non Focal
Skin: Warm and Dry
Psych: Calm
Labs
Lab Results
WBC 2.3 10^3/uL (4.8-10.8) L* 07/14/23 04:10
RBC 2.81 10^6/uL (4.70-6.10) L 07/14/23 04:10
Hgb 9.6 g/dL (13.0-18.0) L 07/14/23 04:10
Hct 28.4 % (39.0-52.0) L 07/14/23 04:10
MCV 101.1 fL (80.0-94.0) H 07/14/23 04:10
MCH 34.2 pg (27.0-31.0) H 07/14/23 04:10
MCHC 33.8 g/dL (33.0-37.0) 07/14/23 04:10
RDW 14.8 % (11.5-14.5) H 07/14/23 04:10
Plt Count 154 10^3/uL (130-400) 07/14/23 04:10
MPV 9.5 fL (7.4-10.4) 07/14/23 04:10
Abs Immat Gran (auto) 0.1 10^3/uL (0-0.05) H 07/13/23 13:28
Absolute Neuts (auto) 10.2 10^3/uL (1.4-6.5) H 07/13/23 13:28
Absolute Lymphs (auto) 0.2 10^3/uL (1.2-3.4) L 07/13/23 13:28
Absolute Monos (auto) 0.1 10^3/uL (0.1-0.6) 07/13/23 13:28
Absolute Eos (auto) 0.0 10^3/uL (0-0.7) 07/13/23 13:28
Absolute Basos (auto) 0.0 10^3/uL (0-0.2) 07/13/23 13:28
Immature Gran % 1.2 % (0-0.5) H 07/13/23 13:28
Neutrophils % 95.5 % (42.2-75.2) H 07/13/23 13:28
Lymphocytes % 2.1 % (20.5-51.1) L 07/13/23 13:28
Monocytes % 0.9 % (1.7-9.3) L 07/13/23 13:28
Eosinophils % 0.0 % (0-6) 07/13/23 13:28
Basophils % 0.3 % (0-2) 07/13/23 13:28
Creatinine 0.6 mg/dL (0.7-1.3) L 07/14/23 04:10
Vital Signs
Vital Signs
Temp Pulse Resp BP Pulse Ox
97.6 F 96 20 132/91 98
07/14/23 03:59 07/14/23 06:00 07/14/23 06:00 07/14/23 06:00 07/14/23 06:26
07/13/23 CT abd/pelvis: Imaging for bowel pathology is limited by the lack of enteric contrast. Diverticula are present in the colon with moderate pericolonic inflammatory stranding around the sigmoid colon consistent with acute diverticulitis. There
is a 3.5 cm low-density fluid collection at the anterior margin of the sigmoid colon consistent with peridiverticular abscess and there is free intraperitoneal air consistent with perforated viscus. Hepatic metastasis measuring up to 6.3 cm
--- NOTE | 2023-07-14 10:32 | CON.ID ---
Consultation
-
Date/Time Consultation Requested: 07/14/2023, 0645
Date/Time Consultation Performed: 07/14/2023, 1030
Requesting Provider: Dr. Dione Gold
Performing Provider: Dr. Amelie Quiroz
Reason for Consultation: Perforated diverticulitis
Chief Complaint / Past History
Chief Complaint
Abdominal pain
History of Present Illness
History obtained from patient as well as from his at bedside. He is a 67-year-old male with cancer, liver metastases on chemotherapy last received July 09, myasthenia gravis on CellCept, history of diverticulitis, who presented to the ER on
July 12 with left lower quadrant abdominal pain. Pain started approximately 2 days ago which then progressed to severe pain. Had associated nausea and vomiting. No diarrhea. No fevers or chills at home. In the ED, CAT scan showed perforated
sigmoid diverticulitis. He was taken to the OR emergently and status post expiratory laparotomy, sigmoid resection, end colostomy. OR findings of diffuse purulent peritonitis. Per this is his fourth episode of diverticulitis. Patient
reports some postop pain. Otherwise no other complaints.
Past History
Additional Past Medical History:
Lung CA with liver mets on Taxotere, Cyramza, steroid
Port placement (02/2023)
hx SVC syndrome
BPH
GERD
Hypertension
Myasthenia gravis, on Cellcept
Diverticulitis
Chronic LE edema
CLAUDIO
Hard of hearing
Appendectomy
Vasectomy
Left shoulder replacement
Allergy History:
No Known Allergies Allergy (Verified 07/13/23 11:58)
Medications Reviewed: Yes
Current Antibiotics:
Zosyn
Social History
Tobacco: Former Smoker
Alcohol: Occasional
Drug: None
Personal:
Family History
Family History: Not Pertinent
Review of Systems
Review of Systems
General: Change in Appetite
HEENT: Negative Sinus Problems, Headache or Pharyngitis
Cardiovascular: Negative Chest Pain
Respiratory: Negative Dyspnea or Cough
Genital / Urological: Negative Dysuria or Flank Pain
Endocrine: Weakness
Skin / Hair / Nails: Negative Rash
Neurological: Negative Headache or Dizziness
All systems: All other systems were reviewed and were negative
Vital Signs
Temp Pulse Resp BP Pulse Ox
97.6 F 100 19 137/90 98
07/14/23 03:59 07/14/23 08:37 07/14/23 08:37 07/14/23 09:00 07/14/23 10:00
Physical Exam
Physical Exam
Constitutional: No Acute Distress
Eyes: No Conjunctival Hemorrhage and Sclera Anicteric
Cardiovascular: Regular Rate and S1/S2
Pulmonary: Clear
Gastrointestinal: Soft, Tender (mild tender), Non Distended, Decreased Bowel Sounds and Other (Dressings dry)
Genito-Urinary: Silva and Clear Urine; Negative CVA Tenderness
Neurological: AO x 3
Lines: Port (left CW no erythema)
Lab / Diagnostic Study Results
07/14/23 04:10
07/14/23 04:10
Abs Immat Gran (auto) 0.1 10^3/uL (0-0.05) H 07/13/23 13:28
Absolute Neuts (auto) 10.2 10^3/uL (1.4-6.5) H 07/13/23 13:28
Absolute Lymphs (auto) 0.2 10^3/uL (1.2-3.4) L 07/13/23 13:28
Absolute Monos (auto) 0.1 10^3/uL (0.1-0.6) 07/13/23 13:28
Absolute Basos (auto) 0.0 10^3/uL (0-0.2) 07/13/23 13:28
Total Counted 100 07/14/23 04:10
Immature Gran % 1.2 % (0-0.5) H 07/13/23 13:28
Neutrophils % 95.5 % (42.2-75.2) H 07/13/23 13:28
Lymphocytes % 2.1 % (20.5-51.1) L 07/13/23 13:28
Monocytes % 0.9 % (1.7-9.3) L 07/13/23 13:28
Eosinophils % 0.0 % (0-6) 07/13/23 13:28
Basophils % 0.3 % (0-2) 07/13/23 13:28
Abs Neuts (Manual) 2.1 10^3/uL (1.4-6.5) 07/14/23 04:10
Segmented Neutrophils 85 % (42-75) H 07/14/23 04:10
Band Neutrophils 8 % (0-3) H 07/14/23 04:10
Lymphocytes (Manual) 3 % (20-51) L 07/14/23 04:10
PT 15.4 Sec (11.4-14.6) H 07/13/23 18:17
INR 1.24 07/13/23 18:17
Lactic Acid 2.6 mmol/L (0.7-2.0) H 07/13/23 15:40
Microbiology Results
Micro:
07/13/23 20:00 Anaerobic Culture - Pending
Peritoneal Fluid
07/13/23 20:00 Wound Culture - Pending
Abdomen Gram Stain - Pending
07/13/23 15:40 Blood Culture - Pending
Blood/Venous
07/13/23 15:40 Blood Culture - Pending
Blood/Venous
07/13/23 CT a/p w IV contrast: Diverticuli are present in the colon with moderate pericolonic inflammatory stranding around the sigmoid colon consistent with acute diverticulitis. There is a 3.5 cm low-density fluid collection at the anterior margin
of the sigmoid colon consistent with peridiverticular abscess and there is free intraperitoneal air consistent with perforated viscus. Hepatic metastasis measuring up to 6.3 cm
Assessment / Plan
# Perforated sigmoid diverticulitis
# Purulent peritonitis
- 07/13/23 s/p ex-lap, washout, sigmoid resection, end colostomy
- OR cx's pending; Appreciate Colorectal surgeon
- Continue Zosyn (d2)
# Immunocompromised host
-Metastatic lung ca on chemo
-Myasthenia gravis on cellcept, steroid
[2023-07-14] MEDS: NSS (PRESERVATIVE FREE) 10 ML IV (10:39)
[2023-07-14] MEDS: PROTONIX IV 40 MG IV (10:39)
[2023-07-14] MEDS: MESTINON 30 MG PO ×4 (10:40→21:08)
[2023-07-14] MEDS: D5/0.9% SODIUM CHLORIDE 1000 IV ×2 (10:41→22:12)
[2023-07-14] MEDS: COMPAZINE 10 MG IV ×3 (11:25→23:42)
--- NOTE | 2023-07-14 11:30 | WOUNDNOTE ---
SHAWNA RN note: Patient s/p ostomy surgery for bowel perforation due to diverticulitis.
See H&P for complete history.
PMH: S4 lung cancer with mets to liver,currently getting chemo. HTN, diverticulitis, Myasthenia gravis and ex smoker.
Ostomy location and type: LUQ Colostomy, stoma red slightly budded, midline incisional dressing intact.
Reviewed Colostomy information packet with patient, encouraged to read along with when able. Will set up a time later on in the week for pouch change and further teaching. Patient today having allot of pain not able to do much teaching today.
Plan: Instruct patient and ostomy pouch emptying and changing appliance either or Thursday afternoon. Patient will notify Lara when she visits later, most likely teaching will be done after 2pm.
Wilber wafer # [id number]
Wilber pouch # [id number]
Ostomy supplies ordered from [facility] and asked director community center to bring to bedside.
Note to case management: VN services recommended for ostomy teaching.
Nursing care plan updated, will follow as needed.
[2023-07-14] MEDS: LOPRESSOR 2.5 MG IV ×3 (11:35→23:41)
--- NOTE | 2023-07-14 11:41 | CON.NEURO ---
Consultation
Order
Date of Consultation: 07/14/23
Reason for Consult: MG management
CC: abdominal pain
HPI: This is a 67-year-old ambidextrous man who presented to [facility] on 07/13/2023 with l abdominal pain and fever. Neurology consultation was requested for management of myasthenia gravis. Mr. Sears was found to have
pericolonic abscess and underwent exploratory laparotomy with sigmoid resection and end colostomy on 07/13/2023.
His Mestinon was restarted today in the morning. No reports of diplopia, dyspnea or weakness
Labs: WBCs�2.3, hemoglobin�9.6, sodium�131, glucose�161, bilirubin�1.4, unremarkable urinalysis.
Tele-sinus tachycardia
MAR: Hydromorphone 0.5 mg given at 07:22 AM, 11:26 AM on 07/14/23.
PDMP: Lorazepam 1 Mg� 30 tabs filled in on 06/15/2023
PMH: Generalized myasthenia gravis, L thalamic infarct(01/2023), RIJV/SVC thrombus, SVC syndrome, stage IV poorly differentiated pulmonary adenocarcinoma, GERD, HTN, DLP, COPD, MDD, JO, Mancuso's esophagus, BPH,
PSH: sigmoid resection and end colostomy(07/14/2023), hepatic mass biopsy.(01/2023), Appendectomy, Orthopedic and Other (Tonsillectomy, vasectomy
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
FH:cancer: F, prostate, at age 85. B, lung, at age 56. Sis: breast, at age 60
All:Zithromax
ROS: Constitutional: Negative. Negative for chills, fever and unexpected weight change.
HENT: Negative for ear pain, hearing loss, tinnitus and trouble swallowing.
Eyes: Negative. Negative for photophobia, pain and visual disturbance.
Respiratory:positive for shortness of breath.
Cardiovascular: Negative for chest pain, palpitations and leg swelling.
Gastrointestinal: positive for abdominal pain, xerostomia
Endocrine: Negative. Negative for cold intolerance.
Genitourinary: Negative for dysuria, flank pain and urgency.
Musculoskeletal: Negative for back pain, gait problem, neck pain and neck stiffness.
Skin: Negative for rash.
Allergic/Immunologic: Negative. Negative for immunocompromised state.
Neurological: positive for dysarthria, neg for headache
General: Well developed. In no acute distress.
Cardio:Tachycardic
Neuro:
Mental Status: Alert, oriented to person, place, and date. Normal attention and recall. Good fund of knowledge. Follows complex requests across the midline. Comprehension, naming, and repetition intact. Anxious
Cranial Nerves: Pupils are equally round and reactive to light. EOMs full. Visual chan full to confrontation. No ptosis. No nystagmus. V1-V3 intact to light touch and pinprick bilaterally, symmetric. Face symmetric. Normal hearing AU. The
palate elevated well. SCMs and traps 5/5. Tongue midline. Moderate dysarthria.
Motor: Normal bulk and tone. No pronator or arm drift. Strength 5/5 throughout. No clonus.
Reflexes: neg clonus BL
Sensory: normal LT
Coordination: no tremor/myoclonus
Gait: deferred
Assessment and Plan:
I. Dysarthria
II. Generalized myasthenia gravis
III. History of L thalamic infarct(01/2023)
IV. History of RIJV/SVC thrombus
-Aspiration precautions
-EKG
-Continue Prednisone 30 mg QID
-Avoid Aminoglycosides (gentamicin, neomycin, tobramycin), Clindamycin, Fluoroquinolones (ciprofloxacin, levofloxacin, norfloxacin), Vancomycin, Beta blockers ��(atenolol, labetalol, metoprolol, propranolol), Procainamide, Quinidine, Botulinum
toxin,
-Brain MRI wo jo of dysarthria continues
I personally reviewed all radiology and labs along with past medical records pertinent to current medical problems. Total time spent in patient care is 60 minutes.
Thank you for allowing us to participate in the care of this patient. We will continue to follow. Please do not hesitate to contact us with any questions or concerns.
Subjective/Objective
Subjective Data
Date of Service: July 14, 2023
Objective Data
Vital Signs
Temp Pulse Resp BP Pulse Ox
36.4 C 106 19 138/87 98
07/14/23 11:14 07/14/23 11:35 07/14/23 08:37 07/14/23 11:35 07/14/23 10:00
Lab Results
07/14/23 04:10
07/14/23 04:10
PT 15.4 Sec (11.4-14.6) H 07/13/23 18:17
INR 1.24 07/13/23 18:17
APTT 39.6 Sec (23.4-35.0) H 07/13/23 18:17
Sodium 131 mmol/L (135-145) L 07/14/23 04:10
Potassium 4.0 mmol/L (3.5-5.1) 07/14/23 04:10
BUN 23 mg/dl (9-20) H 07/14/23 04:10
Glucose 161 mg/dl (70-99) H 07/14/23 04:10
Calcium 7.9 mg/dl (8.4-10.2) L D 07/14/23 04:10
Vitamin B12 > 1000 pg/ml (239-931) H 07/13/23 20:48
Patient Allergies
No Known Allergies Allergy (Verified 07/13/23 11:58)
Medications
-
Active Medications
Generic Name Dose Route Start Last Admin
Trade Name Freq PRN Reason Stop Dose Admin
Enoxaparin Sodium 40 mg 07/14/23 18:00
Enoxaparin Sodium 40 Mg/0.4 Ml Syringe SC 08/11/23 17:59
QPM NISSA
Hydromorphone HCl 0.5 mg 07/14/23 11:04 07/14/23 11:26
Hydromorphone 0.5 Mg/0.5 Ml Syringe IV 07/28/23 11:02 0.5 mg
Q3HPRN PRN Administration
Mod to severe pain
Piperacillin Sod/Tazobactam Sod 3.375 gram in 50 mls @ 100 mls/hr 07/13/23 22:00 07/14/23 10:43
Zosyn IV 50 mls
Q6H NISSA Administration
Dextrose/Sodium Chloride 1,000 mls @ 125 mls/hr 07/14/23 10:00 07/14/23 10:41
D5/0.9% Sodium Chloride IV 1,000 mls
.Q8H NISSA Administration
Acetaminophen 1,000 mg in 100 mls @ 400 mls/hr 07/14/23 11:21
Ofirmev IV 07/15/23 11:20
Q6HPRN PRN
mild to moderate pain
Protocol
Metoprolol Tartrate 2.5 mg 07/14/23 12:00 07/14/23 11:35
Metoprolol 5 Mg/5 Ml Vial IV 08/11/23 11:59 2.5 mg
Q6 NISSA Administration
Pantoprazole Sodium 40 mg 07/14/23 10:00 07/14/23 10:39
Pantoprazole Sodium 40 Mg/10 Ml Vial IV 08/11/23 09:59 40 mg
DAILY NISSA Administration
Prochlorperazine Edisylate 10 mg 07/14/23 11:03 07/14/23 11:25
Prochlorperazine 10 Mg/2 Ml Vial IV 08/11/23 11:02 10 mg
Q6HPRN PRN Administration
nausea,vomiting
Pyridostigmine [place] 30 mg 07/14/23 10:00 07/14/23 10:40
Pyridostigmine 60 Mg Tablet PO 08/11/23 09:59 30 mg
QID NISSA Administration
Sodium Chloride 0 flush 07/13/23 21:00
Sodium Chloride 0.9% (Flush) Syringe IV 08/10/23 20:59
PER PROTOCOL NISSA
Sodium Chloride 10 ml 07/14/23 10:00 07/14/23 10:39
Sodium Chloride 0.9% (Preservative Free) 10 Ml Vial IV 08/11/23 09:59 10 ml
DAILY NISSA Administration
Tbo-Filgrastim 480 mcg 07/14/23 22:00
Tbo-Filgrastim (Granix) 480 Mcg/0.8 Ml Syringe SC 08/11/23 21:59
HS NISSA
Home Medications
Medication Instructions Recorded
metoprolol tartrate 25 mg tablet 25 mg PO BID Blood pressure 10/10/17
fluticasone propionate 50 2 spray intranasal DAILY Congestion 04/13/20
mcg/actuation nasal
spray,suspension
furosemide 20 mg tablet 20 mg PO BID Fluid 05/01/20
retention/Swelling
acetaminophen 500 mg tablet 1,000 mg PO BID@1200,2200 Pain 02/02/23
(Tylenol Extra Strength)
folic acid 1 mg tablet 1 mg PO DAILY Supplement 02/02/23
guaifenesin 1,200 mg tablet, 1,200 mg PO QPM Cough 02/02/23
extended release 12 hr (Mucinex)
guaifenesin 600 mg tablet, 600 mg PO DAILY Cough 02/02/23
extended release 12 hr (Mucus
Relief ER)
saw palmetto 450 mg capsule 450 mg PO DAILY Supplement 02/02/23
therapeutic multivitamin 1 tab PO DAILY Supplement 02/02/23
omega [id number]-fish oil 1,200 mg 1 cap PO DAILY Supplement 03/03/23
(144 mg-216 mg) capsule (Fish Oil)
docusate sodium 100 mg capsule 100 mg PO BID STOOL SOFTENER 03/06/23
apixaban 5 mg tablet 2.5 mg PO BID Blood Clot 07/13/23
Prevention/Tx
citalopram 10 mg tablet 10 mg PO DAILY Mental 07/13/23
Health/Anxiety
dexamethasone 4 mg tablet 4 mg PO UD INFLAMMATION 07/13/23
fenofibrate 160 mg tablet 160 mg PO DAILY HIGH TRIGLYCERIDES 07/13/23
lidocaine-prilocaine 2.5 %-2.5 % 1 applic topical DAILY PRN prior 07/13/23
topical cream to port access
mycophenolate mofetil 500 mg tablet 1,000 mg PO BID Transplant 07/13/23
ondansetron HCl 8 mg tablet 8 mg PO Q8H PRN nausea/vomiting 07/13/23
potassium chloride 20 mEq 20 meq PO DAILY Supplement 07/13/23
tablet,extended release
prochlorperazine maleate 10 mg 10 mg PO Q6H PRN nausea 07/13/23
tablet
pyridostigmine bromide 60 mg tablet 30 mg PO QID MYASTHENIA GRAVIS 07/13/23
amlodipine 10 mg tablet 10 mg PO DAILY Blood Pressure 07/14/23
atorvastatin 40 mg tablet 40 mg PO DAILY@2000 High 07/14/23
Cholesterol
pantoprazole 40 mg tablet,delayed 40 mg PO BID@0700,1600 GERD 07/14/23
release
Vital Signs and Labs
-
Vital Signs and Labs:
Vital Signs
Temp Pulse Resp BP Pulse Ox
36.4 C 106 19 138/87 98
07/14/23 11:14 07/14/23 11:35 07/14/23 08:37 07/14/23 11:35 07/14/23 10:00
Lab Results
07/14/23 04:10
07/14/23 04:10
PT 15.4 Sec (11.4-14.6) H 07/13/23 18:17
INR 1.24 07/13/23 18:17
APTT 39.6 Sec (23.4-35.0) H 07/13/23 18:17
Sodium 131 mmol/L (135-145) L 07/14/23 04:10
Potassium 4.0 mmol/L (3.5-5.1) 07/14/23 04:10
BUN 23 mg/dl (9-20) H 07/14/23 04:10
Glucose 161 mg/dl (70-99) H 07/14/23 04:10
Calcium 7.9 mg/dl (8.4-10.2) L D 07/14/23 04:10
Vitamin B12 > 1000 pg/ml (239-931) H 07/13/23 20:48
Home Medications
-
Home Medications
metoprolol tartrate 25 mg tablet 25 mg PO BID Blood pressure 10/10/17
fluticasone propionate 50 mcg/actuation nasal spray,suspension 2 spray intranasal DAILY Congestion 04/13/20
furosemide 20 mg tablet 20 mg PO BID Fluid retention/Swelling 05/01/20
acetaminophen 500 mg tablet (Tylenol Extra Strength) 1,000 mg PO BID@1200,2200 Pain 02/02/23
folic acid 1 mg tablet 1 mg PO DAILY Supplement 02/02/23
guaifenesin 1,200 mg tablet, extended release 12 hr (Mucinex) 1,200 mg PO QPM Cough 02/02/23
guaifenesin 600 mg tablet, extended release 12 hr (Mucus Relief ER) 600 mg PO DAILY Cough 02/02/23
saw palmetto 450 mg capsule 450 mg PO DAILY Supplement 02/02/23
therapeutic multivitamin 1 tab PO DAILY Supplement 02/02/23
omega 0-rrk-neq-fish oil 1,200 mg (144 mg-216 mg) capsule (Fish Oil) 1 cap PO DAILY Supplement 03/03/23
docusate sodium 100 mg capsule 100 mg PO BID STOOL SOFTENER 03/06/23
apixaban 5 mg tablet 2.5 mg PO BID Blood Clot Prevention/Tx 07/13/23
citalopram 10 mg tablet 10 mg PO DAILY Mental Health/Anxiety 07/13/23
dexamethasone 4 mg tablet 4 mg PO UD INFLAMMATION 07/13/23
fenofibrate 160 mg tablet 160 mg PO DAILY HIGH TRIGLYCERIDES 07/13/23
lidocaine-prilocaine 2.5 %-2.5 % topical cream 1 applic topical DAILY PRN prior to port access 07/13/23
mycophenolate mofetil 500 mg tablet 1,000 mg PO BID Transplant 07/13/23
ondansetron HCl 8 mg tablet 8 mg PO Q8H PRN nausea/vomiting 07/13/23
potassium chloride 20 mEq tablet,extended release 20 meq PO DAILY Supplement 07/13/23
prochlorperazine maleate 10 mg tablet 10 mg PO Q6H PRN nausea 07/13/23
pyridostigmine bromide 60 mg tablet 30 mg PO QID MYASTHENIA GRAVIS 07/13/23
amlodipine 10 mg tablet 10 mg PO DAILY Blood Pressure 07/14/23
atorvastatin 40 mg tablet 40 mg PO DAILY@2000 High Cholesterol 07/14/23
pantoprazole 40 mg tablet,delayed release 40 mg PO BID@0700,1600 GERD 07/14/23
Medications
-
Medications:
Generic Name Dose Route Start Last Admin
Trade Name Freq PRN Reason Stop Dose Admin
Enoxaparin Sodium 40 mg 07/14/23 18:00
Enoxaparin Sodium 40 Mg/0.4 Ml Syringe SC 08/11/23 17:59
QPM NISSA
Hydromorphone HCl 0.5 mg 07/14/23 11:04 07/14/23 11:26
Hydromorphone 0.5 Mg/0.5 Ml Syringe IV 07/28/23 11:02 0.5 mg
Q3HPRN PRN Administration
Mod to severe pain
Piperacillin Sod/Tazobactam Sod 3.375 gram in 50 mls @ 100 mls/hr 07/13/23 22:00 07/14/23 10:43
Zosyn IV 50 mls
Q6H NISSA Administration
Dextrose/Sodium Chloride 1,000 mls @ 125 mls/hr 07/14/23 10:00 07/14/23 10:41
D5/0.9% Sodium Chloride IV 1,000 mls
.Q8H NISSA Administration
Acetaminophen 1,000 mg in 100 mls @ 400 mls/hr 07/14/23 11:21
Ofirmev IV 07/15/23 11:20
Q6HPRN PRN
mild to moderate pain
Protocol
Metoprolol Tartrate 2.5 mg 07/14/23 12:00 07/14/23 11:35
Metoprolol 5 Mg/5 Ml Vial IV 08/11/23 11:59 2.5 mg
Q6 NISSA Administration
Pantoprazole Sodium 40 mg 07/14/23 10:00 07/14/23 10:39
Pantoprazole Sodium 40 Mg/10 Ml Vial IV 08/11/23 09:59 40 mg
DAILY NISSA Administration
Prochlorperazine Edisylate 10 mg 07/14/23 11:03 07/14/23 11:25
Prochlorperazine 10 Mg/2 Ml Vial IV 08/11/23 11:02 10 mg
Q6HPRN PRN Administration
nausea,vomiting
Pyridostigmine [place] 30 mg 07/14/23 10:00 07/14/23 10:40
Pyridostigmine 60 Mg Tablet PO 08/11/23 09:59 30 mg
QID NISSA Administration
Sodium Chloride 0 flush 07/13/23 21:00
Sodium Chloride 0.9% (Flush) Syringe IV 08/10/23 20:59
PER PROTOCOL NISSA
Sodium Chloride 10 ml 07/14/23 10:00 07/14/23 10:39
Sodium Chloride 0.9% (Preservative Free) 10 Ml Vial IV 08/11/23 09:59 10 ml
DAILY NISSA Administration
Tbo-Filgrastim 480 mcg 07/14/23 22:00
Tbo-Filgrastim (Granix) 480 Mcg/0.8 Ml Syringe SC 08/11/23 21:59
[facility]
--- NOTE | 2023-07-14 11:56 | W.PN.CRS1 ---
Today's Communication / Plan
-
lovenox
NGT/NPO
wound RN
OOB/PT
Assessment/Plan
-
POD#1 Exploratory laparotomy, sigmoid resection and end colostomy (Smith's procedure)
1. Vitals normal. Labs normal.
2. Continue NPO with NGT. Await bowel function.
3. Lovenox for DVT prophylaxis. TEDS/SCDS in place.
4. Continue reynolds for I/O's.
5. OOB with PT.
6. Wound RN for stoma teaching.
7. Pain control: Ofirmev added, Dilaudid IV PRN.
8. OR pathology pending.
9. Zosyn per ID. OR cultures pending.
Subjective Data
Procedure
07/13/2023- Exploratory laparotomy, sigmoid resection and end colostomy (Smith's procedure)
Subjective Data
Date of Service: July 14, 2023
Patient states he has pain. He feels nauseous. He denies nausea or vomiting.
Objective Data
-
Vital Signs
Temp Pulse Resp BP Pulse Ox
97.6 F 106 19 138/87 98
07/14/23 11:14 07/14/23 11:35 07/14/23 08:37 07/14/23 11:35 07/14/23 10:00
Intake & Output
07/13/23 07/14/23 07/15/23
06:59 06:59 06:59
Intake Total 1290 / 1290
Output Total 800 / 800
Balance 490 / 490
Intake:
IV fluids (Total) 1100 / 1100
Normosol 100 / 100
IV piggybacks 100 / 100
Amount instilled into GI Tube ( 90 / 90
Total)
Mathews Sump 90 / 90
Output:
Gastrointestinal tube output ( 200 / 200
Total)
Mathews Sump 200 / 200
Urine, Reynolds 600 / 600
Lab Results
07/14/23 04:10
07/14/23 04:10
Physical Exam
-
General: No Acute Distress and AOx3
Abdomen: Soft, Non Distended, Tender (throughout) and Other (colostomy warm and pink)
Wound: Dressing in Place
[2023-07-14] MEDS: OFIRMEV 100 IV ×2 (13:32→23:42)
[2023-07-14] MEDS: LOVENOX 40 MG SC (17:07)
--- NOTE | 2023-07-14 20:49 | PTCARENOTE ---
Received pt from jahaira OSULLIVAN. Pt is AAOx3, [employer]. NSR on the monitor. On RA O2 sat 96%, lungs clear. Silva in place, hygiene provided. Colostomy in place, no output. R nare NG tube to continuous suction. SCDs on pt. Pt c/o 10/10 abd pain, PRN pain
meds given (see MAR). Pt c/o nausea, PRN med given (see MAR). Pt is laying comfortable in bed with call pereira in reach.
[2023-07-14] MEDS: GRANIX 480 MCG SC (21:09)
[2023-07-15] VITALS (16 sets, daily range): BP systolic 115–156; BP diastolic 69–83; PULSE 85; O2SAT 98
[2023-07-15] MEDS: DILAUDID 0.5 MG IV ×5 (02:38→19:56)
[2023-07-15] MEDS: ZOSYN 50 IV ×4 (04:45→21:16)
[2023-07-15] MEDS: LOPRESSOR 2.5 MG IV ×4 (05:17→23:28)
[2023-07-15 05:32] LABS: Hematocrit 24.4 % (39.0-52.0); Hemoglobin 8.1 g/dL (13.0-18.0); Mean Corp Hgb Conc. 33.2 g/dL (33.0-37.0); Mean Corpuscular Hgb 34.5 pg (27.0-31.0); Mean Corpuscular Volume 103.8 fL (80.0-94.0); Mean Platelet Volume 9.7 fL (7.4-10.4); Platelet Count 145 10^3/uL (130-400); Red Blood Cell Count 2.35 10^6/uL (4.70-6.10); Red Cell Dist. Width 14.4 % (11.5-14.5)
[2023-07-15] MEDS: D5/0.9% SODIUM CHLORIDE 1000 IV ×2 (05:33→17:01)
[2023-07-15 05:37] LABS: White Blood Cell Count 0.5 10^3/uL (4.8-10.8)
[2023-07-15 06:04] LABS: Blood Urea Nitrogen 20 mg/dl (9-20); Calcium 7.8 mg/dl (8.4-10.2); Carbon Dioxide 28 mmol/L (22-30); Chloride 100 mmol/L (98-107); Estimated Creatinine Clearance 118 ml/min; Glucose 149 mg/dl (70-99); Potassium 3.2 mmol/L (3.5-5.1); Sodium 134 mmol/L (135-145); eGFR > 60.00
--- NOTE | 2023-07-15 06:39 | W.PN.HOSP.TC ---
Today's Communication/Plan
-
.
Assessment / Plan
Assessment / Plan
Physical Exam
General: No Apparent Distress
HEENT: Normocephalic, Moist mucous membranes and Atraumatic. NG Tube
Respiratory: Clear
Cardiac: S1/S2
GI: Soft, laparotomy sutures noted, no bleeding
Rectal: no rectal bleeding
Musculoskeletal: No Clubbing, No Cyanosis and No Edema
Skin: No Rash
Neuro: Nonfocal/grossly intact
Psych: calm
# Sepsis POA with tachycardia, neutrophilia then leukopenia and diverticulitis with abscess/perforation/ Diffuse purulent peritonitis
-CT abdomen pelvis shows acute diverticulitis with 3.5 cm fluid collection at the anterior margin of the sigmoid colon and free intraperitoneal air
-Status post exploratory laparotomy with sigmoid resection/and colostomy (Melo's procedure) by Dr. Ny on07/13/23. No complications reported.
Continue with n.p.o. bowel rest, IV fluid, IV PPI.
-Dilaudid for pain, add IV Tylenol . Antinausea medication
Status post Kcentra
On intravenous Zosyn
Hope we can remove Silva soon
-Appreciate surgery & ID help
# History of metastatic lung cancer on chemotherapy (Taxotere, Cyramza)
Primary oncologist Dr. Daniels
Recent treatment in outpatient setting
Continue supportive care
Appreciate oncology input
# Chemotherapy-induced neutropenia
Granix 480mcg SQ daily until ANC > 2.5
# Hypocalcemia, replace with IV calcium gluconate
# Hypokalemia, replaced
# Hyponatremia
# Anemia of cancer/inflammation/anemia of chronic disease
Transfuse blood if hemoglobin less than 8
# Resolved incidence of hematuria
-Check urinalysis
-Outpatient follow-up with urology
-Eliquis held for now
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
-Hold Eliquis
#Essential hypertension
Continue with IV metoprolol with holding parameters, continue monitoring on telemetry
#GERD
Changed to IV Protonix
#Myasthenia gravis
-Hold mycophenolate
Continue with pyridostigmine
#Chronic lower extremity edema
-Hold Lasix
BPH
Hyperlipidemia
Hold statin, fenofibrate while n.p.o.
Anxiety/depression
-Hold citalopram while n.p.o.
Full code
DVT prophylaxis�SCDs
N.p.o.
�Total time spent to see the patient, examine the patient on the floor, review data and lab results, discuss treatment plan with the patient, nursing staff around 57 minutes
Anticipated Discharge: > 48 hours
Subjective/Interval History
-
Date of Service: July 15, 2023
Abdominal pain, IV Tylenol helped
no chest pain
no fevers
Objective Data
-
Labs:
Laboratory Results
07/15/23
05:21
WBC 0.5 L*
Hgb 8.1 L
Hct 24.4 L
Plt Count 145
Sodium 134 L
Potassium 3.2 L
Chloride 100
Carbon Dioxide 28
BUN 20
Creatinine 0.5 L
Glucose 149 H
Calcium 7.8 L
Vital Signs:
Vital Signs
Temp Pulse Resp BP Pulse Ox
97.7 F 85 17 131/76 94
07/15/23 04:20 07/15/23 06:00 07/15/23 06:00 07/15/23 06:00 07/15/23 06:00
I&O
07/13/23 07/14/23 07/15/23
06:59 06:59 06:59
Intake Total 1290 / 1290 3530 / 3530
Output Total 800 / 800 2245 / 2245
Balance 490 / 490 1285 / 1285
--- NOTE | 2023-07-15 07:20 | W.PN.ONC2 ---
Today's Communication / Plan
-
As below plan
Impression
Impression
Metastatic lung cancer to liver on chemotherapy (Taxotere, Cyramza)
Acute perforated sigmoid diverticulitis
Diffuse purulent peritonitis
Hx SVC syndrome - anticoagulation (Eliquis) on hold post op
Myasthenia gravis
Plan
Plan
POD#2 ex lap, sigmoid resection, end colostomy (Smith's procedure), EBL 20cc
Monitor CBC with diff daily; monitor neutropenia.
Granix 480mcg SQ daily until ANC > 2.5
Transfuse as needed to maintain Hgb >7, PLT >20
Last treatment of Taxotere, Cyramza: Thu07/10/23 (with Aranesp)
SVC Syndrome:
Resume Eliquis when able to take PO and cleared for A/C per surgery. Currently on Lovenox 40 SQ QD for DVT prophylaxis
Appreciate Neurology consult for MG while NPO
MG:
Per neurology while NPO and off of pyridostigmine.
[facility] office has been updated regarding patient's clinical status.
We will follow.
Subjective/Objective
Chief Complaint
ACS Heme Onc
Subjective
Feels tired and weak post op. NGT.
Vital Signs:
Vital Signs
Temp Pulse Resp BP Pulse Ox
97.7 F 85 17 131/76 94
07/15/23 04:20 07/15/23 06:00 07/15/23 06:00 07/15/23 06:00 07/15/23 06:00
Afebrile
Lab Results:
Laboratory Data
WBC 0.5 10^3/uL (4.8-10.8) L* 07/15/23 05:21
Hgb 8.1 g/dL (13.0-18.0) L 07/15/23 05:21
Plt Count 145 10^3/uL (130-400) 07/15/23 05:21
PT 15.4 Sec (11.4-14.6) H 07/13/23 18:17
INR 1.24 07/13/23 18:17
APTT 39.6 Sec (23.4-35.0) H 07/13/23 18:17
eGFR > 60.00 07/15/23 05:21
Physical Exam
HEENT: Other (NGT)
Cardiology: S1 and S2
Pulmonary: Clear
[2023-07-15] MEDS: CALCIUM GLUCONATE 100 IV (07:38)
[2023-07-15] MEDS: PROTONIX IV 40 MG IV (07:43)
[2023-07-15] MEDS: NSS (PRESERVATIVE FREE) 10 ML IV (07:43)
[2023-07-15] MEDS: MESTINON 30 MG PO (07:43)
[2023-07-15] MEDS: OFIRMEV 100 IV ×3 (08:40→21:52)
[2023-07-15] MEDS: COMPAZINE 10 MG IV ×2 (08:47→19:56)
[2023-07-15] MEDS: KCL 270 MEQ IV (09:06)
--- NOTE | 2023-07-15 10:58 | W.PN.NEURO.1 ---
Today's Communication / Plan
-
.
Subjective/Objective
Subjective Data
Date of Service: July 15, 2023
Mr. Sears continues to be dysarthric. No reports of diplopia, blurred vision, dyspnea or weakness.
EKG-NSR.
PMH: Generalized myasthenia gravis, L thalamic infarct(01/2023), RIJV/SVC thrombus, SVC syndrome, stage IV poorly differentiated pulmonary adenocarcinoma, GERD, HTN, DLP, COPD, MDD, JO, Mancuso's esophagus, BPH,
PSH: sigmoid resection and end colostomy(07/14/2023), hepatic mass biopsy(01/2023), appendectomy, tonsillectomy, vasectomy
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
FH:father-prostate CA, sister-breast CA,
All:Zithromax
ROS: Constitutional: Negative. Negative for chills, fever and unexpected weight change.
HENT: Negative for ear pain, hearing loss, tinnitus and trouble swallowing.
Eyes: Negative. Negative for photophobia, pain and visual disturbance.
Respiratory:positive for shortness of breath.
Cardiovascular: Negative for chest pain, palpitations and leg swelling.
Gastrointestinal: positive for abdominal pain, xerostomia
Endocrine: Negative. Negative for cold intolerance.
Genitourinary: Negative for dysuria, flank pain and urgency.
Musculoskeletal: Negative for back pain, gait problem, neck pain and neck stiffness.
Skin: Negative for rash.
Allergic/Immunologic: Negative. Negative for immunocompromised state.
Neurological: positive for dysarthria, neg for headache
�
General: Well developed. In no acute distress.
Cardio:Tachycardic
Neuro:
Mental Status: Alert, oriented to person, place, and date.� Normal attention and recall.� Good fund of knowledge. Follows complex requests across the midline.� Comprehension, naming, and repetition intact. Anxious
Cranial Nerves: Pupils are equally round and reactive to light.� EOMs full.� Visual chan full to confrontation.� No ptosis.� No nystagmus.� V1-V3 intact to light touch and pinprick bilaterally, symmetric.� Face symmetric.�Poor hearing AU.� The
palate elevated well.� SCMs and traps 5/5.� Tongue midline.� Moderate dysarthria.
Motor:� � � � Normal bulk and tone.� No pronator or arm drift.� Strength 5/5 throughout. No clonus.
Reflexes: � � � � neg clonus BL
Sensory: normal LT
Coordination: no tremor/myoclonus
Gait: � � � � � deferred
Assessment and Plan:
�
�I. Dysarthria
II. Generalized myasthenia gravis
III. History of L thalamic infarct(01/2023)
IV. History of RIJV/SVC thrombus
-Aspiration precautions
-Increase Mestinon to 60 mg 3 times daily
-Brain MRI wo jo
-Will consider IVIG based on brain MRi and clinical course
�
I personally reviewed all radiology and labs along with past medical records pertinent to current medical problems. Total time spent in patient care is 37 minutes.
�
Thank you for allowing us to participate in the care of this patient. We will continue to follow. Please do not hesitate to contact us with any questions or concerns.
Objective Data
Vital Signs
Temp Pulse Resp BP Pulse Ox
36.9 C 85 17 131/76 97
07/15/23 07:46 07/15/23 06:00 07/15/23 06:00 07/15/23 06:00 07/15/23 10:50
Lab Results
07/15/23 05:21
07/15/23 05:21
PT 15.4 Sec (11.4-14.6) H 07/13/23 18:17
INR 1.24 07/13/23 18:17
APTT 39.6 Sec (23.4-35.0) H 07/13/23 18:17
Sodium 134 mmol/L (135-145) L 07/15/23 05:21
Potassium 3.2 mmol/L (3.5-5.1) L 07/15/23 05:21
BUN 20 mg/dl (9-20) 07/15/23 05:21
Glucose 149 mg/dl (70-99) H 07/15/23 05:21
Calcium 7.8 mg/dl (8.4-10.2) L 07/15/23 05:21
Vitamin B12 > 1000 pg/ml (239-931) H 07/13/23 20:48
Patient Allergies
No Known Allergies Allergy (Verified 07/13/23 11:58)
--- NOTE | 2023-07-15 11:22 | W.PN.CRS1 ---
Today's Communication / Plan
-
Continue NGT
DC Reynolds
Okay for DVT PPx, hold therapeutic AC for another day; monitor Hb
Assessment/Plan
-
67-year-old male with PMH of stage IV lung cancer (actively on chemo: Taxotere, Cyramza), SVC syndrome, on Eliquis, HTN, myasthenia gravis who presents with abdominal pain, found to have perforated diverticulitis on CT, WBC 10.7
POD 2 s/p ex lap with Melo's procedure
No overnight issues
AFVSS, abd appropriately tender, mildly distended
Reynolds-1000 mL, NGT 1.2L, light bilious
WBC 0.5 from 2.3, Hb 8.1 from 9.6, Cr 0.5
- Continue n.p.o. with NGT and IVF
- Continue pain control with IV Dilaudid; can add IV Toradol ATC
- D/c reynolds, monitor for void
- Okay for DVT PPx, hold full AC for now
- Continue IV Zosyn for purulent peritonitis, likely 7-10 days
- IS/OOB, recommend PT
- Recommend WOCN for ostomy teaching and supplies
- Neutropenia, appreciate onc; on granix
- Appreciate hospitalist
Subjective Data
Procedure
07/13/2023- Exploratory laparotomy, sigmoid resection and end colostomy (Smith's procedure)
Subjective Data
Date of Service: July 15, 2023
No overnight events.
Pain somewhat controlled.
Denies nausea/vomiting. NG tube in place.
No ostomy function + Reynolds
Pt is not OOB.
Objective Data
-
Vital Signs
Temp Pulse Resp BP Pulse Ox
98.4 F 87 17 128/70 97
07/15/23 07:46 07/15/23 11:05 07/15/23 06:00 07/15/23 11:05 07/15/23 10:50
Intake & Output
07/14/23 07/15/23 07/16/23
06:59 06:59 06:59
Intake Total 1290 / 1290 3530 / 3530
Output Total 800 / 800 2245 / 2245
Balance 490 / 490 1285 / 1285
Intake:
Oral fluids 0 / 0
IV fluids (Total) 1100 / 1100 2950 / 2950
Normosol 100 / 100
IV piggybacks 100 / 100 400 / 400
Amount instilled into GI Tube ( 90 / 90 180 / 180
Total)
[place] Sump 90 / 90 180 / 180
Output:
Gastrointestinal tube output ( 200 / 200 1225 / 1225
Total)
[place] Sump 200 / 200 1225 / 1225
Urine, Reynolds 600 / 600 1020 / 1020
Lab Results
07/15/23 05:21
07/15/23 05:21
Physical Exam
-
General: No Acute Distress and AOx3
HEENT: Grossly Normal
Abdomen: Soft, Non Distended, Tender (Appropriately tender near incisions), No Guarding, No Rebound and Other (Ostomy pink; Aquacel in place)
Skin: Warm and Dry
Wound: Dressing in Place
--- NOTE | 2023-07-15 11:32 | W.PN.ID1 ---
Date of Service
Date of Service: July 15, 2023
Today's Communication
Continue Zosyn
Assessment / Plan
# Perforated sigmoid diverticulitis
# Purulent peritonitis
- 07/13/23 s/p ex-lap, washout, sigmoid resection, end colostomy
- OR cx's GNR; Appreciate Colorectal surgeon
- Continue Zosyn (d3)
# Immunocompromised host
-Metastatic lung ca on chemo
-Myasthenia gravis on cellcept, steroid
# Neutropenia due to chemo
- Received Tbo-Filgrastim
-Awaiting bone marrow recovery
#Additional Past Medical History:
Lung CA with liver mets on Taxotere, Cyramza
Port placement (02/2023)
hx SVC syndrome
BPH
GERD
Hypertension
Myasthenia gravis, on Cellcept, steroid
Diverticulitis
Chronic LE edema
CLAUDIO
Hard of hearing
Appendectomy
Vasectomy
Left shoulder replacement
Chief Complaint
-: Other (Perforated diverticulitis)
Subjective / Review of Systems
+ pain all over.
Vital Signs / Physical Exam
Vital Signs
Vital Signs
Temp Pulse Resp BP Pulse Ox
98.4 F 87 17 128/70 97
07/15/23 07:46 07/15/23 11:05 07/15/23 06:00 07/15/23 11:05 07/15/23 10:50
Physical Exam
Constitutional: No Acute Distress
Head: Other (NGT in place.)
Eyes: Sclera Anicteric
Gastrointestinal: Soft, Non Distended and Decreased Bowel Sounds
Extremities: Negative Edema
Neurological: AO x 3
Objective Data
Lab Data
Lab Results
07/15/23 05:21
07/15/23 05:21
PT 15.4 Sec (11.4-14.6) H 07/13/23 18:17
INR 1.24 07/13/23 18:17
APTT 39.6 Sec (23.4-35.0) H 07/13/23 18:17
Estimated Creat Clear 118 ml/min 07/15/23 05:21
Lactic Acid 2.6 mmol/L (0.7-2.0) H 07/13/23 15:40
Total Bilirubin 1.4 mg/dl (0.2-1.3) H 07/14/23 04:10
AST 42 U/L (17-59) 07/14/23 04:10
ALT 25 U/L (0-50) 07/14/23 04:10
Alkaline Phosphatase 40 U/L (38-126) 07/14/23 04:10
Most recent labs reviewed.
Micro Results:
07/13/23 20:00 Anaerobic Culture - Preliminary
Peritoneal Fluid Culture pending. Anaerobic cultures are examined after 3
days incubation. Additional information to follow.
07/13/23 20:00 Wound Culture - Preliminary
Abdomen Gram negative bacilli
Gram Stain - Preliminary
07/13/23 15:40 Blood Culture - Preliminary
Blood/Venous No Growth in 24 hours- Final report to follow
07/13/23 15:40 Blood Culture - Preliminary
Blood/Venous No Growth in 24 hours- Final report to follow
07/13/23 CT a/p w IV contrast: Diverticuli are present in the colon with moderate pericolonic inflammatory stranding around the sigmoid colon consistent with acute diverticulitis. There is a 3.5 cm low-density fluid collection at the anterior margin
of the sigmoid colon consistent with peridiverticular abscess and there is free intraperitoneal air consistent with perforated viscus. Hepatic metastasis measuring up to 6.3 cm
[2023-07-15] MEDS: MESTINON 60 MG PO ×2 (16:53→21:16)
--- NOTE | 2023-07-15 16:54 | CM ---
Patient with Hx lung CA on chemo, myasthenia gravis with Dx sepsis, diverticulitis with abscess/perforation/peritonitis s/p exploratory lap with sigmoid resection/and colostomy (Melo's procedure). NPO/IVF. Receiving Granix, IV Zosyn. PT
recommends HH.
Spoke with patient's Lara;
the patient resides with his , daughter, OPHELIA, grand-children in a 1 story house with 1 TRAVIS.
The patient has been independent in ADLs and ambulation.
He is hard of hearing and does not have his hearing aides here.
DME - CPAP, RW, w/c, shower chair
He had prior [facility] and says patient will agree to having them again for PT.
Prior [facility] - did not like
PCP - Todd Gamboa
Pharmacy - [facility]
is retired and can continue to assist the patient at home.
Referral to GILA Hawkins.
CM will continue to follow for d/c needs.
Plan home with [facility].
[2023-07-15] MEDS: LOVENOX 40 MG SC (17:01)
--- NOTE | 2023-07-15 17:40 | PTCARENOTE ---
Pt having a better day today, pain and nausea much more controlled. IV Ofirmev seems to give pt the most relief. Pt was able to get up and walk with therapy, sat in the chair for an hour before getting uncomfortable and requesting to go back to bed.
Shadowing around shiell marked. Colostomy has no output. Familly at bedside, pt makes needs known.
[2023-07-15] MEDS: D5/0.9% SODIUM CHLORIDE IV (19:39)
[2023-07-15] MEDS: GRANIX 480 MCG SC (21:16)
[2023-07-16] VITALS (13 sets, daily range): BP systolic 113–148; BP diastolic 61–99
[2023-07-16] MEDS: DILAUDID 0.5 MG IV ×6 (00:35→23:03)
[2023-07-16] MEDS: ZOSYN 50 IV ×4 (03:38→21:39)
[2023-07-16] MEDS: D5/0.9% SODIUM CHLORIDE 1000 IV ×3 (03:38→19:50)
[2023-07-16 04:43] LABS: % Immature Granulocytes 15.7 % (0-0.5); % Lymphocytes 29.4 % (20.5-51.1); % Monocytes 17.6 % (1.7-9.3); % Neutrophils 33.3 % (42.2-75.2); Absolute Immature Granulocytes 0.1 10^3/uL (0-0.05); Absolute Lymphocytes 0.2 10^3/uL (1.2-3.4); Absolute Monocytes 0.1 10^3/uL (0.1-0.6); Hematocrit 23.5 % (39.0-52.0); Hemoglobin 7.9 g/dL (13.0-18.0); Mean Corp Hgb Conc. 33.6 g/dL (33.0-37.0); Mean Corpuscular Hgb 34.6 pg (27.0-31.0); Mean Corpuscular Volume 103.1 fL (80.0-94.0); Mean Platelet Volume 9.8 fL (7.4-10.4); Nucleated Red Blood Cells % 0 % (-); Platelet Count 157 10^3/uL (130-400); Red Blood Cell Count 2.28 10^6/uL (4.70-6.10); Red Cell Dist. Width 13.9 % (11.5-14.5)
[2023-07-16 04:48] LABS: Absolute Neutrophils 0.2 10^3/uL (1.4-6.5); White Blood Cell Count 0.5 10^3/uL (4.8-10.8)
[2023-07-16 05:09] LABS: Blood Urea Nitrogen 16 mg/dl (9-20); Calcium 7.9 mg/dl (8.4-10.2); Carbon Dioxide 27 mmol/L (22-30); Chloride 103 mmol/L (98-107); Estimated Creatinine Clearance 118 ml/min; Glucose 142 mg/dl (70-99); Magnesium 1.2 mg/dl (1.6-2.3); Potassium 2.9 mmol/L (3.5-5.1); Sodium 137 mmol/L (135-145); eGFR > 60.00
[2023-07-16] MEDS: LOPRESSOR 2.5 MG IV ×3 (05:11→17:24)
[2023-07-16] MEDS: OFIRMEV 100 IV (05:12)
--- NOTE | 2023-07-16 05:29 | PTCARENOTE ---
critical labs this AM- WBC 0.5 absolute neutrophils 0.2. notified [facility]- no new orders. potassium low this AM 2.9- orders entered per JUN.
[2023-07-16] MEDS: KCL 270 MEQ IV ×2 (05:46→09:22)
--- NOTE | 2023-07-16 06:27 | W.PN.HOSP.TC ---
Today's Communication/Plan
-
.
Assessment / Plan
Assessment / Plan
Physical Exam
General: No Apparent Distress
HEENT: Normocephalic, Moist mucous membranes and Atraumatic. NG Tube
Respiratory: Clear
Cardiac: S1/S2
GI: Soft, laparotomy sutures noted, no bleeding
Rectal: no rectal bleeding
Musculoskeletal: No Clubbing, No Cyanosis and No Edema
Skin: No Rash
Neuro: Nonfocal/grossly intact
Psych: calm
# Sepsis POA with tachycardia, neutrophilia then leukopenia and diverticulitis with abscess/perforation/ Diffuse purulent peritonitis
-CT abdomen pelvis shows acute diverticulitis with 3.5 cm fluid collection at the anterior margin of the sigmoid colon and free intraperitoneal air
-Status post exploratory laparotomy with sigmoid resection/and colostomy (Melo's procedure) by Dr. Ny on07/13/23. No complications reported.
Continue with n.p.o. bowel rest, IV fluid, IV PPI.
-Dilaudid for pain, add IV Tylenol . Antinausea medication
Status post Kcentra
On intravenous Zosyn
Hope we can remove Silva soon
-Appreciate surgery & ID help
# History of metastatic lung cancer on chemotherapy (Taxotere, Cyramza)
Primary oncologist Dr. Daniels
Recent treatment in outpatient setting
Continue supportive care
Appreciate oncology input
# Chemotherapy-induced neutropenia
Granix 480mcg SQ daily until ANC > 2.5
# Hypocalcemia, replace with IV calcium gluconate
# Hypokalemia, severe K is 2.9 will c/w aggressive IV replacement
replaced
# Hypomagnesemia
Replace with IV Mg sulfate
# Hyponatremia
# Anemia of cancer/inflammation/anemia of chronic disease
Transfuse blood if hemoglobin less than 8
# Resolved incidence of hematuria
-Check urinalysis
-Outpatient follow-up with urology
-Eliquis held for now
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
-Hold Eliquis
#Essential hypertension
Continue with IV metoprolol with holding parameters, continue monitoring on telemetry
#GERD
Changed to IV Protonix
#Myasthenia gravis
-Hold mycophenolate
Continue with pyridostigmine
#Chronic lower extremity edema
-Hold Lasix
BPH
Hyperlipidemia
Hold statin, fenofibrate while n.p.o.
Anxiety/depression
-Hold citalopram while n.p.o.
Full code
DVT prophylaxis�SCDs
N.p.o.
�Total time spent to see the patient, examine the patient on the floor, review data and lab results, discuss treatment plan with the patient, nursing staff around 57 minutes
Anticipated Discharge: > 48 hours
Subjective/Interval History
-
Date of Service: July 16, 2023
Pain in abdomen is better controlled
No chest pain or sob
Objective Data
-
Labs:
Laboratory Results
07/16/23
04:28
WBC 0.5 L*
Hgb 7.9 L
Hct 23.5 L
Plt Count 157
Sodium 137
Potassium 2.9 L
Chloride 103
Carbon Dioxide 27
BUN 16
Creatinine 0.5 L
Glucose 142 H
Calcium 7.9 L
Vital Signs:
Vital Signs
Temp Pulse Resp BP Pulse Ox
97.7 F 88 16 118/72 95
07/16/23 03:54 07/16/23 06:01 07/16/23 06:01 07/16/23 06:00 07/15/23 20:28
I&O
03/19/24 03/20/24 03/21/24
06:59 06:59 06:59
Intake Total 1290 / 1290 3530 / 3530 3625 / 3625
Output Total 800 / 800 2245 / 2245 1750 / 1750
Balance 490 / 490 1285 / 1285 1875 / 1875
[2023-07-16] MEDS: MESTINON 60 MG PO ×3 (08:19→21:39)
[2023-07-16] MEDS: PROTONIX IV 40 MG IV (08:20)
[2023-07-16] MEDS: NSS (PRESERVATIVE FREE) 10 ML IV (08:20)
[2023-07-16] MEDS: CALCIUM GLUCONATE 100 IV (09:34)
--- NOTE | 2023-07-16 09:50 | W.PN.ID1 ---
Date of Service
Date of Service: July 16, 2023
Today's Communication
Continue Zosyn.
Assessment / Plan
# Perforated sigmoid diverticulitis
# Purulent peritonitis
- 07/13/23 s/p ex-lap, washout, sigmoid resection, end colostomy
- OR cx's GNR; Appreciate Colorectal surgeon
- Continue Zosyn (d4). Will de-escalate when final cx data available.
# Immunocompromised host
-Metastatic lung ca on chemo
-Myasthenia gravis on cellcept, steroid
# Neutropenia due to chemo
- Received Tbo-Filgrastim
-Awaiting bone marrow recovery
#Additional Past Medical History:
Lung CA with liver mets on Taxotere, Cyramza
Port placement (02/2023)
hx SVC syndrome
BPH
GERD
Hypertension
Myasthenia gravis, on Cellcept, steroid
Diverticulitis
Chronic LE edema
CLAUDIO
Hard of hearing
Appendectomy
Vasectomy
Left shoulder replacement
Chief Complaint
-: Other (Perforated diverticulitis)
Subjective / Review of Systems
Post-op abd pain better.
Vital Signs / Physical Exam
Vital Signs
Vital Signs
Temp Pulse Resp BP Pulse Ox
97.3 F 88 16 118/72 95
07/16/23 07:36 07/16/23 06:01 07/16/23 06:01 07/16/23 06:00 07/15/23 20:28
Physical Exam
Constitutional: No Acute Distress and Comfortable
Pulmonary: Clear (anterior lung)
Gastrointestinal: Soft, Non Tender and Decreased Bowel Sounds
Neurological: AO x 3
Lines: Port (no erythema)
Objective Data
Lab Data
Lab Results
07/16/23 04:28
07/16/23 04:28
PT 15.4 Sec (11.4-14.6) H 07/13/23 18:17
INR 1.24 07/13/23 18:17
APTT 39.6 Sec (23.4-35.0) H 07/13/23 18:17
Estimated Creat Clear 118 ml/min 07/16/23 04:28
Lactic Acid 2.6 mmol/L (0.7-2.0) H 07/13/23 15:40
Total Bilirubin 1.4 mg/dl (0.2-1.3) H 07/14/23 04:10
AST 42 U/L (17-59) 07/14/23 04:10
ALT 25 U/L (0-50) 07/14/23 04:10
Alkaline Phosphatase 40 U/L (38-126) 07/14/23 04:10
Most recent labs reviewed.
Micro Results:
07/13/23 20:00 Wound Culture - Preliminary
Abdomen Gram negative bacilli
Gram Stain - Preliminary
07/13/23 15:40 Blood Culture - Preliminary
Blood/Venous No Growth in 48 hours- Final report to follow
07/13/23 15:40 Blood Culture - Preliminary
Blood/Venous No Growth in 48 hours- Final report to follow
07/13/23 20:00 Anaerobic Culture - Preliminary
Peritoneal Fluid Culture pending. Anaerobic cultures are examined after 3
days incubation. Additional information to follow.
07/13/23 CT a/p w IV contrast: Diverticuli are present in the colon with moderate pericolonic inflammatory stranding around the sigmoid colon consistent with acute diverticulitis. There is a 3.5 cm low-density fluid collection at the anterior margin
of the sigmoid colon consistent with peridiverticular abscess and there is free intraperitoneal air consistent with perforated viscus. Hepatic metastasis measuring up to 6.3 cm
07/15/23 Brain MRI: No acute intracranial abnormality noted.
--- NOTE | 2023-07-16 09:56 | PN.CDI ---
Addendum entered and electronically signed by Leonel Gold MD 07/16/23 10:21:
Yes, hematuria is related to/exacerbated by Eliquis
Original Note:
CDI
- -
CDI:
Physician Documentation Request
Admit Date: 07/13/23 18:22
Dear Doctor Alla,
Patient admitted for diverticulitis.
H&P: 'He did have some blood in the urine today which is since resolved. He last took Eliquis this morning.'
07/15 Hospitalist PN: 'Resolved incidence of hematuria...Outpatient follow-up with urology, iMsti held for now'
Please clarify the relationship between these conditions:
Yes, hematuria is related to/exacerbated by Eliquis
No, hematuria is not related to/exacerbated by Eliquis
Unable to determine
Use of terms such as suspected, likely, concern for, or probable (associated with a specific diagnosis that is being evaluated, monitored, or treated as if it exists) are acceptable and can be coded in the inpatient setting, when documented at the
time of discharge.
Thank you,
Diana Anguiano RN, BSN
CDI Specialist
Available via [place] text
Please use your independent medical judgment in providing your response.
--- NOTE | 2023-07-16 10:17 | W.PN.CRS1 ---
Today's Communication / Plan
-
DC Reynolds
Continue n.p.o. with NGT
Assessment/Plan
-
67-year-old male with PMH of stage IV lung cancer (actively on chemo: Taxotere, Cyramza), SVC syndrome, on Eliquis, HTN, myasthenia gravis who presents with abdominal pain, found to have perforated diverticulitis on CT, WBC 10.7
POD 3 s/p ex lap with Melo's procedure
No overnight issues
AFVSS, abd appropriately tender, mildly distended
Reynolds-950 mL, NGT 800 mL, light bilious
WBC 0.5 from 0.5, Hb 7.9 from 8.1, Cr 0.5
- Continue n.p.o. with NGT and IVF
- Continue pain control with IV Dilaudid; can add IV Toradol ATC
- D/c reynolds, monitor for void
- Okay for DVT PPx, hold full AC for now
- Continue IV Zosyn for purulent peritonitis, likely 7-10 days
- IS/OOB, recommend PT
-Appreciate WOCN for ostomy teaching and supplies
- Neutropenia, appreciate onc; on granix
� Appreciate neuro for dysarthria and history of MG; MRI brain negative
- Appreciate hospitalist
Subjective Data
Procedure
07/13/2023- Exploratory laparotomy, sigmoid resection and end colostomy (Smith's procedure)
Subjective Data
Date of Service: July 16, 2023
No overnight events.
Pain controlled.
Denies nausea/vomiting. Still with NGT.
No ostomy function yet. + Reynolds
Pt was OOB.
Objective Data
-
Vital Signs
Temp Pulse Resp BP Pulse Ox
97.3 F 88 16 118/72 95
07/16/23 07:36 07/16/23 06:01 03/21/24 06:01 07/16/23 06:00 07/15/23 20:28
Intake & Output
07/15/23 07/16/23 07/17/23
06:59 06:59 06:59
Intake Total 3530 / 3530 3625 / 3625 675 / 675
Output Total 2245 / 2245 1750 / 1750 250 / 250
Balance 1285 / 1285 1875 / 1875 425 / 425
Intake:
Oral fluids 0 / 0
IV fluids (Total) 2950 / 2950 2875 / 2875 375 / 375
IV piggybacks 400 / 400 600 / 600 300 / 300
Amount instilled into GI Tube ( 180 / 180 150 / 150
Total)
[place] Sump 180 / 180 150 / 150
Output:
Gastrointestinal tube output ( 1225 / 1225 800 / 800
Total)
[place] S[place] 1225 / 1225 800 / 800
Urine, Reynolds 1020 / 1020 950 / 950 200 / 200
Urine, Voided 50 / 50
Lab Results
07/16/23 04:28
07/16/23 04:28
Physical Exam
-
General: No Acute Distress and AOx3
HEENT: Grossly Normal
Abdomen: Soft, Non Distended, Tender (Appropriately tender near incision), No Guarding, No Rebound and Other (Ostomy pink, not productive; NGT-800 mL for 24 hours)
Neurological: Other (Mild dysarthria)
Skin: Warm and Dry
Wound: Dressing in Place
[2023-07-16] MEDS: MAGNESIUM SULFATE 50 IV (10:43)
--- NOTE | 2023-07-16 11:24 | W.PN.ONC ---
Today's Communication / Plan
-
Postop ex lap, sigmoid resection, end colostomy (Smith's procedure), EBL 20cc
Monitor CBC with diff daily
Granix 480mcg SQ daily until ANC > 2500 current ANC 200
Transfuse as needed to maintain Hgb >7, PLT >20
Last treatment of Taxotere, Cyramza: Thu07/10/23 (with Aranesp)
Continue Eliquis when able to take PO and cleared for A/C per surgery, currently on Lovenox 40 SQ QD for DVT prophylaxis
Appreciate Neurology consult for MG while NPO
Per neurology while NPO and off of pyridostigmine
We will follow
Impression
Impression
Metastatic lung cancer to liver on chemotherapy (Taxotere, Cyramza)
Acute perforated sigmoid diverticulitis
Diffuse purulent peritonitis
Hx SVC syndrome - anticoagulation (Eliquis) on hold post op
Myasthenia gravis
Subjective/Objective
Subjective/Objective
No new complaints this morning
Vital Signs:
Vital Signs
Temp Pulse Resp BP Pulse Ox
97.3 F 88 16 118/72 96
07/16/23 07:36 07/16/23 06:01 07/16/23 06:01 07/16/23 06:00 07/16/23 08:00
HEENT no scleral icterus
Heart Regular
Lungs clear without rales
Lab Results:
Laboratory Data
WBC 0.5 10^3/uL (4.8-10.8) L* 07/16/23 04:28
Hgb 7.9 g/dL (13.0-18.0) L 07/16/23 04:28
Plt Count 157 10^3/uL (130-400) 07/16/23 04:28
PT 15.4 Sec (11.4-14.6) H 07/13/23 18:17
INR 1.24 07/13/23 18:17
APTT 39.6 Sec (23.4-35.0) H 07/13/23 18:17
eGFR > 60.00 07/16/23 04:28
--- NOTE | 2023-07-16 12:20 | WOUNDNOTE ---
WO RN note: Instructed patient and colostomy pouch emptying and changing appliance using Wilber wafer # [id number], Kody seal and [place] pouch # [id number]. Stoma pink, flush with peristomal crease distal medially. Ostomy supplies and colostomy
teaching folder in room. Patient was able to open and close pouch. Patient and gave verbal permission to order a Wilber ostomy secure starter kit. Confirmed with MARY Saldana can remove midline post op Aquacell dressing and apply a dry
gauze dressing. Moderate ss drainage noted on removed Aquacell post op dressing. Incisional kirt left in place. No surrounding erythema. Next appliance change planned Thursday.
[2023-07-16] MEDS: DELTASONE 20 MG PO (14:00)
--- NOTE | 2023-07-16 14:15 | PTCARENOTE ---
Pt had a burst of SVT and family states he was seeing bugs pt denies this now. Manuela
--- NOTE | 2023-07-16 14:23 | W.PN.NEURO.1 ---
Today's Communication / Plan
-
.
Subjective/Objective
Subjective Data
Date of Service: July 16, 2023
Mr. Sears continues to be dysarthric.� Brain MRI showed no acute infarcts. No reports of diplopia, blurred vision, dyspnea or weakness.
PMH: Generalized myasthenia gravis, L thalamic infarct(01/2023), RIJV/SVC thrombus, SVC syndrome, stage IV poorly differentiated pulmonary adenocarcinoma, GERD, HTN, DLP, COPD, MDD, JO, Mancuso's esophagus, BPH,
PSH: sigmoid resection and end colostomy(07/14/2023), hepatic mass biopsy(01/2023), appendectomy, tonsillectomy, vasectomy
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
FH:father-prostate CA, sister-breast CA,
All:Zithromax
ROS: Constitutional: Negative. Negative for chills, fever and unexpected weight change.
HENT: Negative for ear pain, hearing loss, tinnitus and trouble swallowing.
Eyes: Negative. Negative for photophobia, pain and visual disturbance.
Respiratory:positive for shortness of breath.
Cardiovascular: Negative for chest pain, palpitations and leg swelling.
Gastrointestinal: positive for abdominal pain, xerostomia
Endocrine: Negative. Negative for cold intolerance.
Genitourinary: Negative for dysuria, flank pain and urgency.
Musculoskeletal: Negative for back pain, gait problem, neck pain and neck stiffness.
Skin: Negative for rash.
Allergic/Immunologic: Negative. Negative for immunocompromised state.
Neurological: positive for dysarthria
�
General: Well developed. In no acute distress.
Cardio:Tachycardic
Neuro:
Mental Status: Alert, oriented to person, place, and date.� Normal attention and recall.� Good fund of knowledge. Follows complex requests across the midline.� Comprehension, naming, and repetition intact. Anxious
Cranial Nerves: Pupils are equally round and reactive to light.� EOMs full.� Visual chan full to confrontation.� No ptosis.� No nystagmus.� V1-V3 intact to light touch and pinprick bilaterally, symmetric.� Face symmetric.�Poor hearing AU.� The
palate elevated well.� SCMs and traps 5/5.� Tongue midline.� Moderate dysarthria.
Motor:� � � � Normal bulk and tone.� No pronator or arm drift.� Strength 5/5 throughout. No clonus.
Reflexes: � � � � neg clonus BL
Sensory: normal LT
Coordination: no tremor/myoclonus
Gait: � � � � � deferred
Assessment and Plan:
�
�I. Generalized myasthenia gravis, worse after Rocuronium administration.
II. History of L thalamic infarct(01/2023)
III. History of RIJV/SVC thrombus
-Aspiration precautions
-Increase Mestinon to 60 mg QID
-Start Prednisone 20mg QD with closed observation of respiratory status
-Will consider IVIG based on clinical course
�
I personally reviewed all radiology and labs along with past medical records pertinent to current medical problems. Total time spent in patient care is 35 minutes.
�
Thank you for allowing us to participate in the care of this patient. We will continue to follow. Please do not hesitate to contact us with any questions or concerns
Objective Data
Vital Signs
Temp Pulse Resp BP Pulse Ox
36.4 C 113 20 138/74 96
07/16/23 11:52 07/16/23 12:31 07/16/23 12:00 07/16/23 12:31 07/16/23 08:00
Lab Results
07/16/23 04:28
07/16/23 04:28
PT 15.4 Sec (11.4-14.6) H 07/13/23 18:17
INR 1.24 07/13/23 18:17
APTT 39.6 Sec (23.4-35.0) H 07/13/23 18:17
Sodium 137 mmol/L (135-145) 07/16/23 04:28
Potassium 2.9 mmol/L (3.5-5.1) L 07/16/23 04:28
BUN 16 mg/dl (9-20) 07/16/23 04:28
Glucose 142 mg/dl (70-99) H 07/16/23 04:28
Calcium 7.9 mg/dl (8.4-10.2) L 07/16/23 04:28
Vitamin B12 > 1000 pg/ml (239-931) H 07/13/23 20:48
Patient Allergies
No Known Allergies Allergy (Verified 07/13/23 11:58)
--- NOTE | 2023-07-16 16:30 | WOUNDNOTE ---
WOC RN note: t/parish Merino, spoke with Vivian and ordered patient a Wilber ostomy secure starter kit.
[2023-07-16] MEDS: LOVENOX 40 MG SC (17:29)
[2023-07-16 17:51] LABS: Thrombin Time Results 15.4 sec (14.7-19.5)
[2023-07-16] MEDS: GRANIX 480 MCG SC (21:41)
[2023-07-17] VITALS (13 sets, daily range): BP systolic 114–157; BP diastolic 70–106
[2023-07-17] MEDS: LOPRESSOR 2.5 MG IV ×5 (01:01→23:42)
[2023-07-17] MEDS: DILAUDID 0.5 MG IV ×3 (02:45→23:59)
[2023-07-17] MEDS: D5/0.9% SODIUM CHLORIDE IV (04:16)
--- NOTE | 2023-07-17 04:20 | PTCARENOTE ---
Caring for patient overnight. SR/ST on the monitor, remains RA. NGT in place, continuos suction, flushed q4h. Continues to drain. Colostomy in place, no output. Pt states he is now passing gas. C/o generalized abdomen pain, dilaudid given. Midline
incision covered, CDI. IVF running. Pt c/o not being able to sleep overnight. no issues overnight, will continue to monitor.
[2023-07-17] MEDS: ZOSYN 50 IV (04:57)
[2023-07-17 05:16] LABS: Hematocrit 22.8 % (39.0-52.0); Hemoglobin 7.7 g/dL (13.0-18.0); Mean Corp Hgb Conc. 33.8 g/dL (33.0-37.0); Mean Corpuscular Hgb 34.1 pg (27.0-31.0); Mean Corpuscular Volume 100.9 fL (80.0-94.0); Mean Platelet Volume 9.7 fL (7.4-10.4); Nucleated Red Blood Cells % 0 % (-); Platelet Count 170 10^3/uL (130-400); Red Blood Cell Count 2.26 10^6/uL (4.70-6.10); Red Cell Dist. Width 14.3 % (11.5-14.5)
[2023-07-17 05:45] LABS: ALT (SGPT) 19 U/L (0-50); AST (SGOT) 32 U/L (17-59); Albumin 2.9 g/dl (3.5-5.0); Alkaline Phosphatase 44 U/L (38-126); Blood Urea Nitrogen 15 mg/dl (9-20); Calcium 8.3 mg/dl (8.4-10.2); Carbon Dioxide 28 mmol/L (22-30); Chloride 104 mmol/L (98-107); Estimated Creatinine Clearance 118 ml/min; Glucose 146 mg/dl (70-99); Magnesium 1.7 mg/dl (1.6-2.3); Potassium 3.1 mmol/L (3.5-5.1); Sodium 140 mmol/L (135-145); Total Bilirubin 0.6 mg/dl (0.2-1.3); Total Protein 5.3 g/dl (6.3-8.2); eGFR > 60.00
[2023-07-17 06:02] LABS: White Blood Cell Count 1.5 10^3/uL (4.8-10.8)
--- NOTE | 2023-07-17 06:40 | W.PN.HOSP.TC ---
Today's Communication/Plan
-
.
Assessment / Plan
Assessment / Plan
Physical Exam
General: No Apparent Distress
HEENT: Normocephalic, Moist mucous membranes and Atraumatic. NG Tube
Respiratory: Clear
Cardiac: S1/S2
GI: Soft, laparotomy sutures noted, no bleeding
Rectal: no rectal bleeding
Musculoskeletal: No Clubbing, No Cyanosis and No Edema
Skin: No Rash
Neuro: Nonfocal/grossly intact
Psych: calm
# Sepsis POA with tachycardia, neutrophilia then leukopenia and diverticulitis with abscess/perforation/ Diffuse purulent peritonitis
-CT abdomen pelvis shows acute diverticulitis with 3.5 cm fluid collection at the anterior margin of the sigmoid colon and free intraperitoneal air
-Status post exploratory laparotomy with sigmoid resection/and colostomy (Melo's procedure) by Dr. Ny on07/13/23. No complications reported.
Continue with n.p.o. bowel rest, IV fluid, IV PPI.
-Dilaudid for pain, add IV Tylenol . Antinausea medication
Good BS this morning, passing gas, plan to remove NG
Status post Kcentra
On intravenous Zosyn
-Appreciate surgery & ID help
# Oral thrush, will do Nystatin orally
# Insomnia
pt takes Ativan 1 mg every night
will give small dose this morning to avoid withdrawal
will add PRN Ativan
# History of metastatic lung cancer on chemotherapy (Taxotere, Cyramza)
Primary oncologist Dr. Daniels
Recent treatment in outpatient setting
Continue supportive care
Appreciate oncology input
# Chemotherapy-induced neutropenia
Granix 480mcg SQ daily until ANC > 2.5
WBC is heading in right direction
# Acute blood loss anemia with anemia secondary to cancer treatment
Will transfuse as needed.
# Hypocalcemia, replace with IV calcium gluconate
# Hypokalemia,
Will do K rider one time. Will add KCl to running IVF
Recheck K in AM
# Hypomagnesemia , today is 1.7
Replace with IV Mg sulfate, will do 1 gm today
# Hyponatremia, resolved. NA at 140
# Anemia of cancer/inflammation/anemia of chronic disease
Transfuse blood if hemoglobin less than 8
# Resolved incidence of hematuria
-Check urinalysis
-Outpatient follow-up with urology
-Eliquis held for now
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
-Hold Eliquis, will resume once safe
#Essential hypertension
Continue with IV metoprolol with holding parameters, continue monitoring on telemetry
#GERD
Changed to IV Protonix
#Myasthenia gravis
Not in exacerbation on exam
He denies weakness, double vision
-Hold mycophenolate
Continue with pyridostigmine , prednisone was added 07/15
Appreciate neurology input
#Chronic lower extremity edema
-Hold Lasix
#BPH
#Hyperlipidemia
Hold statin, fenofibrate while n.p.o.
#Anxiety/depression
-Hold citalopram while n.p.o.
Full code
DVT prophylaxis�SCDs
N.p.o.
�Total time spent to see the patient, examine the patient on the floor, review data and lab results, discuss treatment plan with the patient, family, nursing staff around 57 minutes
Anticipated Discharge: > 48 hours
Subjective/Interval History
-
Date of Service: July 17, 2023
Can not sleep, uses Ativan and Celexa at home every night
No chest pain
reports back pain
passing gas
Objective Data
-
Labs:
Laboratory Results
07/17/23
05:02
WBC 1.5 L*
Hgb 7.7 L
Hct 22.8 L
Plt Count 170
Sodium 140
Potassium 3.1 L
Chloride 104
Carbon Dioxide 28
BUN 15
Creatinine 0.4 L
Glucose 146 H
Calcium 8.3 L
Total Bilirubin 0.6
AST 32
ALT 19
Alkaline Phosphatase 44
Vital Signs:
Vital Signs
Temp Pulse Resp BP Pulse Ox
97.7 F 86 17 132/85 94
07/17/23 03:47 07/17/23 04:00 07/17/23 04:00 07/17/23 04:00 07/17/23 04:00
I&O
07/15/23 07/16/23 07/17/23
06:59 06:59 06:59
Intake Total 3530 / 3530 3625 / 3625 1450 / 1450
Output Total 2245 / 2245 1750 / 1750 650 / 650
Balance 1285 / 1285 1875 / 1875 800 / 800
[2023-07-17] MEDS: KCL 270 MEQ IV (07:17)
[2023-07-17] MEDS: D5/0.9% with KCL 40 MEQ 1000 IV ×3 (07:26→23:45)
[2023-07-17 07:44] LABS: Band Neutrophils 16 % (0-3); Lymphocytes 34 % (20-51); Monocytes 8 % (2-9); Segmented Neutrophils 42 % (42-75)
[2023-07-17 07:45] LABS: Anisocytosis 1+; Hypochromasia 1+; Normal RBC Morphology No; Ovalocytes 1+; Platelets Checked Yes; Polychromasia 1+
[2023-07-17 07:46] LABS: Total Cells Counted 100
[2023-07-17 07:48] LABS: Absolute Neutrophils -Man Diff 0.8 10^3/uL (1.4-6.5)
[2023-07-17] MEDS: PROTONIX IV 40 MG IV (08:17)
[2023-07-17] MEDS: NSS (PRESERVATIVE FREE) 10 ML IV (08:18)
[2023-07-17] MEDS: MESTINON 60 MG PO ×3 (08:19→22:01)
[2023-07-17] MEDS: DELTASONE 20 MG PO (08:20)
[2023-07-17] MEDS: NSS (PRESERVATIVE FREE) 0.125 ML IV (08:45)
[2023-07-17] MEDS: ATIVAN 0.25 MG IV ×2 (08:45→13:53)
--- NOTE | 2023-07-17 09:34 | W.PN.ID1 ---
Date of Service
Date of Service: July 17, 2023
Today's Communication
switched to unasyn
Assessment / Plan
# Perforated sigmoid diverticulitis
# Purulent peritonitis
- 07/13/23 s/p ex-lap, washout, sigmoid resection, end colostomy
- OR cx's GNR; Appreciate Colorectal surgeon
- Start Unasyn, stop zosyn
# Immunocompromised host
-Metastatic lung ca on chemo
-Myasthenia gravis on cellcept, steroid
# Neutropenia due to chemo - improved
- Received Tbo-Filgrastim
-Awaiting bone marrow recovery
# Oral Thrush
- on nystatin
#Additional Past Medical History:
Lung CA with liver mets on Taxotere, Cyramza
Port placement (02/2023)
hx SVC syndrome
BPH
GERD
Hypertension
Myasthenia gravis, on Cellcept, steroid
Diverticulitis
Chronic LE edema
CLAUDIO
Hard of hearing
Appendectomy
Vasectomy
Left shoulder replacement
Chief Complaint
-: Other (Perforated diverticulitis)
Subjective / Review of Systems
afebrile
bp stable
leukopenia improved - no diff today
hgb stable
cr stable
wound cx: e coli and enterococcus
no complaints
Vital Signs / Physical Exam
Vital Signs
Vital Signs
Temp Pulse Resp BP Pulse Ox
98.8 F 101 19 149/83 94
07/17/23 07:36 07/17/23 07:17 07/17/23 07:12 07/17/23 07:17 07/17/23 07:12
Physical Exam
Constitutional: No Acute Distress and Chronically Ill
Cardiovascular: Regular Rate and S1/S2; Negative Murmur or Rub
Pulmonary: Clear and Symmetric; Negative Wheezes or Rales
Gastrointestinal: Soft, Non Tender, Non Distended and Normal Bowel Sounds
Skin: Warm and Dry; Negative Rash or Jaundice
Wound: Other (dressing clean, dry, intact; stoma pink)
Neurological: Negative Awake
Objective Data
Lab Data
Lab Results
07/17/23 05:02
07/17/23 05:02
PT 15.4 Sec (11.4-14.6) H 07/13/23 18:17
INR 1.24 07/13/23 18:17
APTT 39.6 Sec (23.4-35.0) H 07/13/23 18:17
Estimated Creat Clear 118 ml/min 07/17/23 05:02
Lactic Acid 2.6 mmol/L (0.7-2.0) H 07/13/23 15:40
Total Bilirubin 0.6 mg/dl (0.2-1.3) 07/17/23 05:02
AST 32 U/L (17-59) 07/17/23 05:02
ALT 19 U/L (0-50) 07/17/23 05:02
Alkaline Phosphatase 44 U/L (38-126) 07/17/23 05:02
Most recent labs reviewed.
Micro Results:
07/13/23 15:40 Blood Culture - Preliminary
Blood/Venous No Growth in 72 hours- Final report to follow
07/13/23 15:40 Blood Culture - Preliminary
Blood/Venous No Growth in 72 hours- Final report to follow
07/13/23 20:00 Wound Culture - Preliminary
Abdomen Escherichia coli
Enterococcus species
Gram Stain - Preliminary
07/13/23 20:00 Anaerobic Culture - Preliminary
Peritoneal Fluid Culture pending. Anaerobic cultures are examined after 3
days incubation. Additional information to follow.
07/13/23 CT a/p w IV contrast: Diverticuli are present in the colon with moderate pericolonic inflammatory stranding around the sigmoid colon consistent with acute diverticulitis. There is a 3.5 cm low-density fluid collection at the anterior margin
of the sigmoid colon consistent with peridiverticular abscess and there is free intraperitoneal air consistent with perforated viscus. Hepatic metastasis measuring up to 6.3 cm
07/15/23 Brain MRI: No acute intracranial abnormality noted.
--- NOTE | 2023-07-17 10:18 | PN.CDI ---
Addendum entered and electronically signed by Leonel Gold MD 07/17/23 10:36:
Moderate protein calorie malnutrition
Original Note:
CDI
- -
CDI:
Physician Documentation Request
Admit Date: 07/13/23 18:22
Dear Doctor Alla,
Patient admitted for sepsis.
07/13 sawmill worker assessment: 'Pt meets criteria for severe protein calorie malnutrition of chronic illness with > 10% weight loss over 6 months, prolonged poor intake prior to admission < 75% over > 1month.'
Based on the information, which of the following most accurately represents the patient's nutritional status?
Severe protein calorie malnutrition
Other
[place] Criteria ([facility] Hospitalist 2017)
2 or more criteria must be present for either
non severe or severe malnutrition
Note that the criteria differs related to the
presence of an acute or chronic illness
Acute Illness Chronic Illness
Energy Intake Non Severe: <75% for >7 days Non Severe: <75% for >1 month
Severe: <50% for >5 days Severe: <75% for >1 month
Weight Loss Non Severe: 1-2% over 1 week Non Severe: 5% over 1 month
5% over 1 month 7.5% over 3 months
7.5% over 3 months 10% over 6 months
1 year N/A 20% over 1 year
Severe: >2% over 1 week Severe: >5% over 1 month
>5% over 1 month >7.5% over 3 months
>7.5% over 3 months >10% over 6 months
1 year N/A >20% over 1 year
Body Fat Non Severe: Mild Decrease Non Severe: Mild Loss
Severe: Moderate Decrease Severe: Severe Loss
Muscle Mass Non Severe: Mild Decrease Non Severe: Mild Loss
Severe: Moderate Decrease Severe: Severe Loss
Fluid Accumulation Non Severe: Mild Accumulation Non Severe: Mild Accumulation
Severe: Moderate to severe Severe: Moderate to severe
accumulation accumulation
Reduced Bowling Ball Marker Strength Non Severe: N/A Non Severe: N/A
Severe: Measurably reduced Severe: Measurably reduced
Use of terms such as suspected, likely, concern for, or probable (associated with a specific diagnosis that is being evaluated, monitored, or treated as if it exists) are acceptable and can be coded in the inpatient setting, when documented at the
time of discharge.
Thank you,
Diana Anguiano RN, BSN
CDI Specialist
Available via [place] text
Please use your independent medical judgment in providing your response.
[2023-07-17] MEDS: MAGNESIUM SULFATE 100 IV (10:50)
[2023-07-17] MEDS: MYCOSTATIN ORAL SUSPENSION 5 ML PO ×4 (10:56→22:02)
--- NOTE | 2023-07-17 11:20 | W.PN.NEURO.1 ---
Today's Communication / Plan
-
.
Subjective/Objective
Subjective Data
Date of Service: July 17, 2023
Mr. Sears states that his dysarthria has improved however it is ongoing. He continues to be n.p.o. No reports of diplopia, change in vision dyspnea or weakness.
PMH: Generalized myasthenia gravis, L thalamic infarct(01/2023), RIJV/SVC thrombus, SVC syndrome, stage IV poorly differentiated pulmonary adenocarcinoma, GERD, HTN, DLP, COPD, MDD, JO, Mancuso's esophagus, BPH,
PSH: sigmoid resection and end colostomy(07/14/2023), hepatic mass biopsy(01/2023), appendectomy, tonsillectomy, vasectomy
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
FH:father-prostate CA, sister-breast CA,
All:Zithromax
ROS: Constitutional: Negative. Negative for chills, fever and unexpected weight change.
HENT: Negative for ear pain, hearing loss, tinnitus and trouble swallowing.
Eyes: Negative. Negative for photophobia, pain and visual disturbance.
Respiratory:positive for shortness of breath.
Cardiovascular: Negative for chest pain, palpitations and leg swelling.
Gastrointestinal: positive for abdominal pain, xerostomia
Endocrine: Negative. Negative for cold intolerance.
Genitourinary: Negative for dysuria, flank pain and urgency.
Musculoskeletal: Negative for back pain, gait problem, neck pain and neck stiffness.
Skin: Negative for rash.
Allergic/Immunologic: Negative. Negative for immunocompromised state.
Neurological: positive for dysarthria
�
General: Well developed. In no acute distress.
Cardio:Tachycardic
Neuro:
Mental Status: Alert, oriented to person, place, and date.� Normal attention and recall.� Good fund of knowledge. Follows complex requests across the midline.� Comprehension, naming, and repetition intact. Anxious
Cranial Nerves: Pupils are equally round and reactive to light.� EOMs full.� Visual chan full to confrontation.� No ptosis.� No nystagmus.� V1-V3 intact to light touch and pinprick bilaterally, symmetric.� Face symmetric.�Poor hearing AU.� The
palate elevated well.� SCMs and traps 5/5.� Tongue midline.� Mild to moderate dysarthria. Moderate dysphonia
Motor:� � � � Normal bulk and tone.� No pronator or arm drift.� Strength 5/5 throughout. No clonus.
Reflexes: � � � � neg clonus BL
Sensory: normal LT
Coordination: no tremor/myoclonus
Gait: � � � � � deferred
Assessment and Plan:
�
�I. Generalized myasthenia gravis, worse after Rocuronium administration.
II. History of L thalamic infarct(01/2023)
III. History of RIJV/SVC thrombus
-Aspiration precautions
-Continue Mestinon to 60 mg QID
-Continue prednisone 20 mg QD with closed observation of respiratory status
-Will consider IVIG based on clinical course
-The case was discussed with patient's family
�
I personally reviewed all radiology and labs along with past medical records pertinent to current medical problems. Total time spent in patient care is 35 minutes.
�
Thank you for allowing us to participate in the care of this patient. We will continue to follow. Please do not hesitate to contact us with any questions or concerns.
Objective Data
Vital Signs
Temp Pulse Resp BP Pulse Ox
36.8 C 101 19 149/83 93
07/17/23 11:00 07/17/23 07:17 07/17/23 07:12 07/17/23 07:17 07/17/23 08:00
Lab Results
07/17/23 05:02
07/17/23 05:02
PT 15.4 Sec (11.4-14.6) H 07/13/23 18:17
INR 1.24 07/13/23 18:17
APTT 39.6 Sec (23.4-35.0) H 07/13/23 18:17
Sodium 140 mmol/L (135-145) 07/17/23 05:02
Potassium 3.1 mmol/L (3.5-5.1) L 07/17/23 05:02
BUN 15 mg/dl (9-20) 07/17/23 05:02
Glucose 146 mg/dl (70-99) H 07/17/23 05:02
Calcium 8.3 mg/dl (8.4-10.2) L 07/17/23 05:02
Vitamin B12 > 1000 pg/ml (239-931) H 07/13/23 20:48
Patient Allergies
No Known Allergies Allergy (Verified 07/13/23 11:58)
--- NOTE | 2023-07-17 11:46 | W.PN.CRS1 ---
Today's Communication / Plan
-
Cont NGT until ostomy function
Ok to start eliquis
Assessment/Plan
-
67-year-old male with PMH of stage IV lung cancer (actively on chemo: Taxotere, Cyramza), SVC syndrome, on Eliquis, HTN, myasthenia gravis who presents with abdominal pain, found to have perforated diverticulitis on CT, WBC 10.7
POD 4 s/p ex lap with Melo's procedure
AFVSS, abd appropriately tender, non-distended
NGT 250 mL, light bilious
WBC 1.5, Hb 7.9 from 8.1, Cr 0.4
- Continue n.p.o. with NGT and IVF
- Continue pain control with IV Dilaudid; can add IV Toradol ATC
- Okay for Eliquis
- Continue IV abx per ID
- IS/OOB, recommend PT
- Appreciate [facility] for ostomy teaching and supplies
- Neutropenia, appreciate onc; on granix
� Appreciate neuro for dysarthria and history of MG; MRI brain negative
- Appreciate hospitalist
Subjective Data
Procedure
07/13/2023- Exploratory laparotomy, sigmoid resection and end colostomy (Smith's procedure)
Subjective Data
Date of Service: July 17, 2023
No overnight events.
Pain controlled.
Denies nausea/vomiting. Still with NGT.
No ostomy function +voiding
Pt is OOB.
Objective Data
-
Vital Signs
Temp Pulse Resp BP Pulse Ox
98.2 F 101 19 149/83 93
07/17/23 11:00 07/17/23 07:17 07/17/23 07:12 07/17/23 07:17 07/17/23 08:00
Intake & Output
07/16/23 07/17/2324
06:59 06:59 06:59
Intake Total 3625 / 3625 1450 / 1450 1690 / 1690
Output Total 1750 / 1750 650 / 650 625 / 625
Balance 1875 / 1875 800 / 800 1065 / 1065
Intake:
IV fluids (Total) 2875 / 2875 1000 / 1000 1500 / 1500
IV piggybacks 600 / 600 450 / 450 100 / 100
Amount instilled into GI Tube ( 150 / 150 90 / 90
Total)
[place] Sump 150 / 150 90 / 90
Output:
Gastrointestinal tube output ( 800 / 800 250 / 250
Total)
[place] Sump 800 / 800 250 / 250
Urine, Silva 950 / 950 200 / 200
Urine, Voided 450 / 450 375 / 375
Lab Results
07/17/23 05:02
07/17/23 05:02
Physical Exam
-
General: No Acute Distress and AOx3
HEENT: Grossly Normal
Abdomen: Soft, Non Distended, Tender (Appropriately tender near incision), No Guarding and No Rebound
Skin: Warm and Dry
Wound: No Signs of Infection, Dressing in Place and No Skin Erythema
[2023-07-17] MEDS: UNASYN IV ×3 (12:24→22:21)
--- NOTE | 2023-07-17 12:36 | W.PN.ONC ---
Today's Communication / Plan
-
POD#4 ex lap, sigmoid resection, end colostomy (Smith's procedure), EBL 20cc
07/16 WBC 1.5, Hgb 7.7, Hct 22.8, ANC 800, PLT 170
Continue Neutropenic precautions
Monitor CBC with diff daily
Transfuse as needed to maintain Hgb >7, PLT >20
Continue Granix 480mcg SQ daily and monitor response of WBC/ANC
Last treatment of Taxotere, Cyramza: 07/10/23 (with Aranesp)
Monitor wound healing, WOC[facility] following
Pain and nausea management
Continue supportive care, PT/OT, OOB activity
OK for Eliquis per Colorectal surgery
Mestinon and Prednisone per Neurology
We will follow. [place] updated.
Impression
Impression
Metastatic lung cancer to liver on chemotherapy (Taxotere, Cyramza)
Acute perforated sigmoid diverticulitis s/p ex lap with Melo's procedure
Diffuse purulent peritonitis
Anemia of chronic disease
Chemotherapy-induced neutropenia
Acute hematuria (resolved)
Hx SVC syndrome on Eliquis
Hx Myasthenia gravis
Weakness
Subjective/Objective
Subjective/Objective
Pt states pain is controlled.
Vital Signs:
Vital Signs
Temp Pulse Resp BP Pulse Ox
98.2 F 88 22 149/82 98
07/17/23 11:00 07/17/23 12:00 07/17/23 12:00 07/17/23 12:25 07/17/23 10:00
physical exam unchanged.
NGT, await ostomy output
Lab Results:
Laboratory Data
WBC 1.5 10^3/uL (4.8-10.8) L* 07/17/23 05:02
Hgb 7.7 g/dL (13.0-18.0) L 07/17/23 05:02
Plt Count 170 10^3/uL (130-400) 07/17/23 05:02
PT 15.4 Sec (11.4-14.6) H 07/13/23 18:17
INR 1.24 07/13/23 18:17
APTT 39.6 Sec (23.4-35.0) H 07/13/23 18:17
eGFR > 60.00 07/17/23 05:02
--- NOTE | 2023-07-17 14:18 | VNURNOTE ---
Chart reviewed, [facility] referral to be completed closer to discharge.
[2023-07-17] MEDS: LOVENOX 40 MG SC (16:40)
--- NOTE | 2023-07-17 17:12 | CM ---
Patient with Hx lung CA on chemo, myasthenia gravis with Dx sepsis, diverticulitis with abscess/perforation/peritonitis s/p exploratory lap with sigmoid resection/and colostomy (Melo's procedure). NPO/IVF. Receiving Granix, IV Abx. PT
recommends Home PT vs SNF.
Seen by GILA Hawkins.
CM will continue to follow for d/c needs.
Plan home with [facility].
[2023-07-17] MEDS: GRANIX 480 MCG SC (22:09)
[2023-07-17] MEDS: ATIVAN 0.5 MG IV (23:39)
[2023-07-18] VITALS (13 sets, daily range): BP systolic 147–180; BP diastolic 78–121
--- NOTE | 2023-07-18 01:00 | PTCARENOTE ---
pt pulled out ng tube. insurance sales producer notified. multiple attempts to place ng tube. pt aggressive and comabtive and unwilling to allow staff to replace ng tube. bilat upper restraints ordered and applied. insurance sales producer notified of all new events. no new orders.
[2023-07-18 01:11] LABS: Glucose - Point of Care 150 mg/dl (70-99)
[2023-07-18] MEDS: UNASYN IV ×4 (03:00→21:03)
--- NOTE | 2023-07-18 04:57 | W.PN.UPDATE ---
Update Note
Progress Note Update
RN notified INSIDE SALES MANAGER patient has pulled out the NG tube. Patient has received the Ativan and Dilaudid, but still not cooperative to place NG tube. Patient more combative and agitated. Mitts and restraints ordered place. Patient seen and evaluated. Patient
resting in bed, hypoactive BS, mildly tender to palpate, non distended, Afebrile, no nausea, no vomiting. Colostomy bag in place, very little mucous. Dr. Ny made aware, Advised to leave it out. Denies any pain, or shortness at present.
[2023-07-18 05:20] LABS: Hematocrit 23.4 % (39.0-52.0); Hemoglobin 7.7 g/dL (13.0-18.0); Mean Corp Hgb Conc. 32.9 g/dL (33.0-37.0); Mean Corpuscular Hgb 33.8 pg (27.0-31.0); Mean Corpuscular Volume 102.6 fL (80.0-94.0); Mean Platelet Volume 10.3 fL (7.4-10.4); Platelet Count 191 10^3/uL (130-400); Red Blood Cell Count 2.28 10^6/uL (4.70-6.10); Red Cell Dist. Width 14.6 % (11.5-14.5); White Blood Cell Count 9.4 10^3/uL (4.8-10.8)
--- NOTE | 2023-07-18 05:30 | PTCARENOTE ---
pt agitated and urinated on floor @ 0400. pt was refusing all care. Pt called and updated on pt behavior. pt on her way to hospital. At 0530 pt starting to become calm and allowing some care. Soft limb restraints removed at this time. Will
monitor.
[2023-07-18 05:44] LABS: Blood Urea Nitrogen 11 mg/dl (9-20); Calcium 8.5 mg/dl (8.4-10.2); Carbon Dioxide 25 mmol/L (22-30); Chloride 109 mmol/L (98-107); Estimated Creatinine Clearance 118 ml/min; Glucose 133 mg/dl (70-99); Phosphorus 1.2 mg/dl (2.5-4.5); Potassium 3.8 mmol/L (3.5-5.1); Sodium 142 mmol/L (135-145); eGFR > 60.00
[2023-07-18 06:02] LABS: Absolute Neutrophils -Man Diff 6.3 10^3/uL (1.4-6.5); Band Neutrophils 38 % (0-3); Metamyelocytes 3 % (-); Monocytes 15 % (2-9); Myelocytes 1 % (-); Segmented Neutrophils 30 % (42-75)
[2023-07-18 06:03] LABS: Normal RBC Morphology No; Nucleated Red Blood Cells 3 (-); Platelets Checked Yes; Total Cells Counted 100
[2023-07-18 06:07] LABS: Ovalocytes 1+
[2023-07-18 06:08] LABS: Acanthocytes Occasional; Tear Drop Red Blood Cells Occasional
[2023-07-18 06:09] LABS: Macrocytosis 1+; Vacuolated Segs 1+
[2023-07-18 06:11] LABS: Lymphocytes 10 % (20-51); Promyelocytes 1 % (-)
[2023-07-18 06:12] LABS: Schistocytes Occasional
[2023-07-18] MEDS: LOPRESSOR 2.5 MG IV ×4 (06:12→23:01)
[2023-07-18 06:13] LABS: Toxic Granulation 1+
--- NOTE | 2023-07-18 06:17 | W.PN.ONC2 ---
Addendum entered and electronically signed by Aj Glez MD 07/18/23 07:34:
Updated:
SVC Syndrome:
He was restarted on Eliquis 2.5 mg PO BID. Lovenox stopped.
Original Note:
Today's Communication / Plan
-
Heme status stable. D/Cing Granix today with WBC improvement.
Impression
Impression
Metastatic lung cancer to liver on chemotherapy (Taxotere, Cyramza)
Acute perforated sigmoid diverticulitis s/p ex lap with Melo's procedure
Diffuse purulent peritonitis
Anemia of chronic disease
Chemotherapy-induced neutropenia - RESOLVED
Acute hematuria (resolved)
Hx SVC syndrome on Eliquis
Hx Myasthenia gravis
Weakness
Plan
Plan
S/P ex lap, sigmoid resection, end colostomy (Smith's procedure), EBL 20cc
Monitor CBC with diff daily. HgB stable. PLT remail normal. WBC improved on GRANIX - will D/C.
Transfuse as needed to maintain Hgb >7, PLT >20
Last treatment of Taxotere, Cyramza: Thu07/10/23 (with Aranesp)
SVC Syndrome:
Currently on Lovenox 40 mg SQ QD while NPO.
Resume Eliquis when able to take PO and cleared for A/C per surgery.
Subjective/Objective
Chief Complaint
ACS Heme Onc F/U
Subjective
Family at bedside. RN also at bedside. Had rough night with agitation (probably 2* Dilaudid). Pulled out NGT. Back to baseline now. No other c/o.
Vital Signs:
Vital Signs
Temp Pulse Resp BP Pulse Ox
98.4 F 105 26 151/86 91
07/17/23 23:43 07/18/23 06:12 07/18/23 04:00 07/18/23 06:12 07/18/23 02:00
Lab Results:
Laboratory Data
WBC 9.4 10^3/uL (4.8-10.8) 07/18/23 04:59
Hgb 7.7 g/dL (13.0-18.0) L 07/18/23 04:59
Plt Count 191 10^3/uL (130-400) 07/18/23 04:59
PT 15.4 Sec (11.4-14.6) H 07/13/23 18:17
INR 1.24 07/13/23 18:17
APTT 39.6 Sec (23.4-35.0) H 07/13/23 18:17
eGFR > 60.00 07/18/23 04:59
Physical Exam
HEENT: No Jaundice
Cardiology: S1 and S2
Pulmonary: Clear
GI: Other (absent BS)
Extremities: No C/C/E
--- NOTE | 2023-07-18 06:23 | W.PN.HOSP.TC ---
Today's Communication/Plan
-
.
Assessment / Plan
Assessment / Plan
Physical Exam
General: No Apparent Distress
HEENT: Normocephalic, Moist mucous membranes and Atraumatic. NG Tube
Respiratory: Clear
Cardiac: S1/S2
GI: Soft, laparotomy sutures noted, no bleeding
Rectal: no rectal bleeding
Musculoskeletal: No Clubbing, No Cyanosis and No Edema
Skin: No Rash
Neuro: Nonfocal/grossly intact
Psych: calm
# Medications induced delirium, Toxic metabolic encephalopathy, likely opioid induced especially combined with Benzodiazepine. He was confused and agitated last night. Pulled off his NG. Now he is calm and following commands, seems more alert.
Family at bed side helping with re-orientation.
less likely steroid
will stop Dilaudid, use Tylenol for pain
Hold prednisone fo today
Monitor closely. His Blood work did not show worsening metabolic abnormalities.
MRI Brain no stroke.
# Sepsis POA with tachycardia, neutrophilia then leukopenia and diverticulitis with abscess/perforation/ Diffuse purulent peritonitis
-CT abdomen pelvis shows acute diverticulitis with 3.5 cm fluid collection at the anterior margin of the sigmoid colon and free intraperitoneal air
-Status post exploratory laparotomy with sigmoid resection/and colostomy (Melo's procedure) by Dr. Ny on07/13/23. No complications reported.
- Tylenol for pain only. Avoid narcotics as possible. \\
Wound culture c/w E coli & enterococcus.
NG was removed by pt while confused.
Status post Kcentra
s/p intravenous Zosyn, now on IV Unasyn
-Appreciate surgery & ID help
# Oral thrush, c/w Nystatin orally
# Insomnia
c/w Benzodiazepine.
pt takes Ativan 1 mg every night
Avoid withdrawal
c/w PRN Ativan
# History of metastatic lung cancer on chemotherapy (Taxotere, Cyramza)
Primary oncologist Dr. Daniels
Recent treatment in outpatient setting
Continue supportive care
Appreciate oncology input
# Chemotherapy-induced neutropenia
White blood cell count is recovering
s/p Granix 480mcg SQ daily
# Acute blood loss anemia with anemia secondary to cancer treatment
Will transfuse as needed. Maintain HGB >7.
# Hypocalcemia, replace with IV calcium gluconate
# Hypokalemia,
resolved, c/w K in IVF gtt.
# hypophosphatemia
replace
# Hypomagnesemia , today is 1.7
Replace with IV Mg sulfate, will do 1 gm today
# Hyponatremia, resolved. NA at 140
# Anemia of cancer/inflammation/anemia of chronic disease
Transfuse blood if hemoglobin less than 8
# Resolved incidence of hematuria
-Check urinalysis
-Outpatient follow-up with urology
-Eliquis is restarted 07/17
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
- Resuming Eliquis.
#Essential hypertension
Continue with IV metoprolol with holding parameters, continue monitoring on telemetry
will change to oral meds when allowed as bowel function is still sluggish.
#GERD
Changed to IV Protonix
#Myasthenia gravis
Not in exacerbation on exam
He denies weakness, double vision
-Hold mycophenolate
Continue with pyridostigmine , prednisone was added 07/15
Appreciate neurology input
#Chronic lower extremity edema
-Hold Lasix for now.
#BPH
#Hyperlipidemia
Hold statin, fenofibrate while n.p.o.
#Anxiety/depression
-Hold citalopram while n.p.o.
Full code
DVT prophylaxis�SCDs
N.p.o.
�Total time spent to see the patient, examine the patient on the floor, review data and lab results, discuss treatment plan with the patient, family, nursing staff around 59 minutes
Anticipated Discharge: > 48 hours
Subjective/Interval History
-
Date of Service: July 18, 2023
Events over night were reviewed
Now, pt denies pain or discomfort
Objective Data
-
Labs:
Laboratory Results
07/18/23
04:59
WBC 9.4
Hgb 7.7 L
Hct 23.4 L
Plt Count 191
Sodium 142
Potassium 3.8
Chloride 109 H
Carbon Dioxide 25
BUN 11
Creatinine 0.4 L
Glucose 133 H
Calcium 8.5
Vital Signs:
Vital Signs
Temp Pulse Resp BP Pulse Ox
98.4 F 105 26 151/86 91
07/17/23 23:43 07/18/23 06:12 07/18/23 04:00 07/18/23 06:12 07/18/23 02:00
I&O
07/16/23 07/17/23 07/18/23
06:59 06:59 06:59
Intake Total 3625 / 3625 1450 / 1450 2140 / 2140
Output Total 1750 / 1750 650 / 650 1025 / 1025
Balance 1875 / 1875 800 / 800 1115 / 1115
[2023-07-18] MEDS: COMPAZINE 10 MG IV ×2 (07:44→21:04)
[2023-07-18] MEDS: NSS (PRESERVATIVE FREE) 10 ML IV (07:49)
[2023-07-18] MEDS: PROTONIX IV 40 MG IV (07:49)
[2023-07-18] MEDS: D5/0.9% with KCL 40 MEQ 1000 IV ×2 (07:50→21:03)
--- NOTE | 2023-07-18 09:19 | W.PN.ID1 ---
Date of Service
Date of Service: July 18, 2023
Today's Communication
continue unasyn
Assessment / Plan
# Perforated sigmoid diverticulitis
# Purulent peritonitis
- 07/13/23 s/p ex-lap, washout, sigmoid resection, end colostomy
- OR cx's: E coli and amp sensitive E faecium
- Appreciate Colorectal surgeon
- continue Unasyn
- follow clinically
# Immunocompromised host
-Metastatic lung ca on chemo
-Myasthenia gravis on cellcept, steroid
# Neutropenia due to chemo - improved
- Received Tbo-Filgrastim
-Awaiting bone marrow recovery
# Oral Thrush
- on nystatin however with persistent symptoms
- switched to IV fluconazole
- follow qtc in the AM
#Additional Past Medical History:
Lung CA with liver mets on Taxotere, Cyramza
Port placement (02/2023)
hx SVC syndrome
BPH
GERD
Hypertension
Myasthenia gravis, on Cellcept, steroid
Diverticulitis
Chronic LE edema
CLAUDIO
Hard of hearing
Appendectomy
Vasectomy
Left shoulder replacement
Chief Complaint
-: Other (Perforated diverticulitis)
Subjective / Review of Systems
afebrile
hypertensive
leukopenia resolved today - diff pending
cr 0.4
continues to complain of marked dysphagia
Vital Signs / Physical Exam
Vital Signs
Vital Signs
Temp Pulse Resp BP Pulse Ox
98.8 F 106 23 170/78 91
07/18/23 07:20 07/18/23 08:00 07/18/23 08:00 07/18/23 08:00 07/18/23 02:00
Physical Exam
Constitutional: No Acute Distress and Comfortable
Cardiovascular: Regular Rate and S1/S2; Negative Murmur or Rub
Pulmonary: Clear and Symmetric; Negative Wheezes or Rales
Gastrointestinal: Soft, Non Tender, Non Distended and Normal Bowel Sounds
Skin: Warm and Dry; Negative Rash or Jaundice
Neurological: Negative Awake (not disturbed at family request)
Objective Data
Lab Data
Lab Results
07/18/23 04:59
07/18/23 04:59
PT 15.4 Sec (11.4-14.6) H 07/13/23 18:17
INR 1.24 07/13/23 18:17
APTT 39.6 Sec (23.4-35.0) H 07/13/23 18:17
Estimated Creat Clear 118 ml/min 07/18/23 04:59
Lactic Acid 2.6 mmol/L (0.7-2.0) H 07/13/23 15:40
Total Bilirubin 0.6 mg/dl (0.2-1.3) 07/17/23 05:02
AST 32 U/L (17-59) 07/17/23 05:02
ALT 19 U/L (0-50) 07/17/23 05:02
Alkaline Phosphatase 44 U/L (38-126) 07/17/23 05:02
Most recent labs reviewed.
Micro Results:
07/13/23 15:40 Blood Culture - Preliminary
Blood/Venous No Growth in 4 days- Final report to follow
07/13/23 15:40 Blood Culture - Preliminary
Blood/Venous No Growth in 4 days- Final report to follow
07/13/23 20:00 Wound Culture - Preliminary
Abdomen Escherichia coli
Enterococcus faecium
Gram Stain - Preliminary
07/13/23 20:00 Anaerobic Culture - Preliminary
Peritoneal Fluid Culture pending. Anaerobic cultures are examined after 3
days incubation. Additional information to follow.
07/13/23 CT a/p w IV contrast: Diverticuli are present in the colon with moderate pericolonic inflammatory stranding around the sigmoid colon consistent with acute diverticulitis. There is a 3.5 cm low-density fluid collection at the anterior margin
of the sigmoid colon consistent with peridiverticular abscess and there is free intraperitoneal air consistent with perforated viscus. Hepatic metastasis measuring up to 6.3 cm
07/15/23 Brain MRI: No acute intracranial abnormality noted.
[2023-07-18] MEDS: MYCOSTATIN ORAL SUSPENSION PO (10:42)
[2023-07-18] MEDS: DELTASONE PO (11:08)
[2023-07-18] MEDS: ELIQUIS 2.5 MG PO ×2 (11:09→21:02)
[2023-07-18] MEDS: MESTINON 60 MG PO ×3 (11:09→21:02)
[2023-07-18] MEDS: DIFLUCAN 200 MG 100 IV (11:36)
--- NOTE | 2023-07-18 11:45 | W.PN.CRS1 ---
Today's Communication / Plan
-
POD 5 s/p ex lap with Smith's procedure
AFVSS, abd nontender, non-distended
the stoma is functioning
WBC now normal at 9.4, Hb stable at 7.7 from 8.1, Cr 0.4
- Begin clear liquids and advance as tolerated
- Okay for started
- Continue IV abx per ID
- IS/OOB, recommend PT
- Appreciate [facility] for ostomy teaching and supplies
- Neutropenia resolved and granix stopped
- Pathology c/w diverticulitis
� Appreciate neuro for dysarthria and history of MG; MRI brain negative
- Appreciate hospitalist and ID
Assessment/Plan
-
67-year-old male with PMH of stage IV lung cancer (actively on chemo: Taxotere, Cyramza), SVC syndrome, on Eliquis, HTN, myasthenia gravis who presents with abdominal pain, found to have perforated diverticulitis on CT, WBC 10.7
Subjective Data
Procedure
07/13/2023- Exploratory laparotomy, sigmoid resection and end colostomy (Smith's procedure)
Subjective Data
Date of Service: July 18, 2023
He was agitated overnight and pulled out his NG tube. He denies any pain and he wants to go home. He states he is hungry.
Objective Data
-
Vital Signs
Temp Pulse Resp BP Pulse Ox
98.8 F 106 23 180/82 91
07/18/23 07:20 07/18/23 11:35 07/18/23 08:00 07/18/23 11:35 07/18/23 02:00
Intake & Output
07/17/23 07/18/23 07/19/23
06:59 06:59 06:59
Intake Total 1450 / 1450 2140 / 2140 600 / 600
Output Total 650 / 650 1025 / 1025 200 / 200
Balance 800 / 800 1115 / 1115 400 / 400
Intake:
IV fluids (Total) 1000 / 1000 1500 / 1500
IV piggybacks 450 / 450 550 / 550 600 / 600
Amount instilled into GI Tube ( 90 /
Total)
Alma Sump 90 / 90
Output:
Gastrointestinal tube output ( 250 / 250
Total)
Alma Sump 250 / 250
Urine, Silva 200 / 200
Urine, Voided 450 / 450 775 / 775 200 / 200
Lab Results
07/18/23 04:59
07/18/23 04:59
Physical Exam
-
General: No Acute Distress
Abdomen: Soft, Non Distended, Non Tender and Other (The ostomy is functioning)
Wound: Dressing in Place
[2023-07-18] MEDS: TYLENOL 1000 MG PO ×3 (11:52→22:54)
[2023-07-18] MEDS: SODIUM PHOSPHATE 255 MEQ IV (12:40)
--- NOTE | 2023-07-18 13:10 | PTCARENOTE ---
pt assisted oob this am to chair. tolerated few steps and pivot well. remains forgetful but following commands and cooperative. reports incisional pain as 'tolerable'. oral Tylenol given at 1200. Nausea resolved with compazine at 0745 am. sipping
water. passing flatus via ostomy bag. vital signs stable. continuing to monitor
--- NOTE | 2023-07-18 15:45 | CHAP ---
Mr. Sears was welcoming - he smiled and joked with me, and we prayed together. I asked blessings for him, assured Mr. Sears of God's love, and said we're here for him. He thanked me and said, 'Can I go now?'
--- NOTE | 2023-07-18 15:56 | W.PN.NEURO.1 ---
Today's Communication / Plan
-
.
Subjective/Objective
Subjective Data
Date of Service: July 18, 2023
24-hour events: Agitated last night, pulled out NG tube, urinated on the floor.
Did not receive a.m. dose of prednisone
Dysphonia and dysarthria ongoing. No reports of dyspnea
Labs: Normal sodium, glucose�133, normal WBCs.
PMH: Generalized myasthenia gravis, L thalamic infarct(01/2023), RIJV/SVC thrombus, SVC syndrome, stage IV poorly differentiated pulmonary adenocarcinoma, GERD, HTN, DLP, COPD, MDD, JO, Mancuso's esophagus, BPH,
PSH: sigmoid resection and end colostomy(07/14/2023), hepatic mass biopsy(01/2023), appendectomy, tonsillectomy, vasectomy
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
FH:father-prostate CA, sister-breast CA,
All:Zithromax
ROS: Constitutional: Negative. Negative for chills, fever and unexpected weight change.
HENT: Positive for poor hearing, dysphonia.
Eyes: Negative. Negative for photophobia, pain and visual disturbance.
Respiratory:positive for shortness of breath.
Cardiovascular: Negative for chest pain, palpitations and leg swelling.
Gastrointestinal: positive for abdominal pain, xerostomia
Endocrine: Negative. Negative for cold intolerance.
Genitourinary: Negative for dysuria, flank pain and urgency.
Musculoskeletal: Negative for back pain, gait problem, neck pain and neck stiffness.
Skin: Negative for rash.
Allergic/Immunologic: Negative. Negative for immunocompromised state.
Neurological: positive for dysarthria, intermittent agitation
�
General: Well developed. In no acute distress.
Cardio:Tachycardic
Neuro:
Mental Status: Alert, oriented to person, place, and date.� Normal attention and recall.� Good fund of knowledge. Follows complex requests across the midline.� Comprehension, naming, and repetition intact. Anxious
Cranial Nerves: Pupils are equally round and reactive to light.� EOMs full.� Visual chan full to confrontation.� No ptosis.� No nystagmus.� V1-V3 intact to light touch and pinprick bilaterally, symmetric.� Face symmetric.�Poor hearing AU.� The
palate elevated well.� SCMs and traps 5/5.� Tongue midline.� Mild to moderate dysarthria.� Moderate dysphonia
Motor:� � � � Normal bulk and tone.� No pronator or arm drift.� Strength 5/5 throughout. No clonus.
Reflexes: � � � � neg clonus BL
Sensory: normal LT
Coordination: no tremor/myoclonus
Gait: � � � � � deferred
Assessment and Plan:
�
�I. Generalized myasthenia gravis, worse after Rocuronium administration.
II. History of L thalamic infarct(01/2023)
III. Multifactorial encephalopathy/suspected delirium
-Aspiration precautions
-Continue Mestinon to 60 mg QID
-Restart prednisone 20 mg QD with closed observation of respiratory status
-Will consider IVIG based on clinical course
-The case was discussed with patient's family
�
I personally reviewed all radiology and labs along with past medical records pertinent to current medical problems. Total time spent in patient care is 35 minutes.
�
Thank you for allowing us to participate in the care of this patient. We will continue to follow. Please do not hesitate to contact us with any questions or concerns.
Objective Data
Vital Signs
Temp Pulse Resp BP Pulse Ox
37.6 C 100 26 163/91 93
07/18/23 11:55 07/18/23 14:00 07/18/23 14:00 07/18/23 12:00 07/18/23 14:00
Lab Results
07/18/23 04:59
07/18/23 04:59
PT 15.4 Sec (11.4-14.6) H 07/13/23 18:17
INR 1.24 07/13/23 18:17
APTT 39.6 Sec (23.4-35.0) H 07/13/23 18:17
Sodium 142 mmol/L (135-145) 07/18/23 04:59
Potassium 3.8 mmol/L (3.5-5.1) 07/18/23 04:59
BUN 11 mg/dl (9-20) 07/18/23 04:59
Glucose 133 mg/dl (70-99) H 07/18/23 04:59
Calcium 8.5 mg/dl (8.4-10.2) 07/18/23 04:59
Phosphorus 1.2 mg/dl (2.5-4.5) L 07/18/23 04:59
Vitamin B12 > 1000 pg/ml (239-931) H 07/13/23 20:48
Patient Allergies
No Known Allergies Allergy (Verified 07/13/23 11:58)
--- NOTE | 2023-07-18 16:27 | PTOTSP ---
ST Acute Care Evaluation
Pt presents with mild oropharyngeal dysphagia characterized by mildly prolonged mastication and reduced bolus formation resulting in slight oral residue as well as overt s/s of penetration/aspiration with multiple sequential sips of thin liquids,
which is remediated with single sips.
Recommendations:
- Advance diet to regular solids and thin liquids, meds as tolerated (when cleared by surgery).
- Aspiration precautions: HOB fully upright during all PO intake, small bites, single sips, alternate bites/sips.
- Encourage pt to expectorate mucous from throat as able.
- EDGE PLUGGER to continue to follow pt closely.
[2023-07-18] MEDS: ATIVAN 0.5 MG IV (16:30)
[2023-07-19] VITALS (14 sets, daily range): BP systolic 114–172; BP diastolic 52–94
[2023-07-19] MEDS: D5/0.9% with KCL 40 MEQ IV ×2 (00:14→23:14)
--- NOTE | 2023-07-19 01:47 | PTCARENOTE ---
Pt reports pain/discomfort throughout abdomen; Tylenol provided for pain and Compazine for nausea. Colostomy bag burped several times during shift; ~ 0130 Pt had 200ml's liquid black/brown stool and 1 small formed stool out of Colostomy. Pt
reported 'feeling better' afterwards. Pt's daughter staying with Pt overnight - Pt remaining calm and cooperative with Daughter at bedside. Will continue to monitor and assess.
[2023-07-19] MEDS: UNASYN IV ×4 (03:02→21:02)
[2023-07-19 04:01] LABS: Hematocrit 22.3 % (39.0-52.0); Hemoglobin 7.5 g/dL (13.0-18.0); Mean Corp Hgb Conc. 33.6 g/dL (33.0-37.0); Mean Corpuscular Hgb 34.2 pg (27.0-31.0); Mean Corpuscular Volume 101.8 fL (80.0-94.0); Mean Platelet Volume 10.3 fL (7.4-10.4); Platelet Count 192 10^3/uL (130-400); Red Blood Cell Count 2.19 10^6/uL (4.70-6.10); Red Cell Dist. Width 14.9 % (11.5-14.5); White Blood Cell Count 21.6 10^3/uL (4.8-10.8)
[2023-07-19 04:24] LABS: Blood Urea Nitrogen 11 mg/dl (9-20); Calcium 8.2 mg/dl (8.4-10.2); Carbon Dioxide 25 mmol/L (22-30); Chloride 111 mmol/L (98-107); Estimated Creatinine Clearance 118 ml/min; Glucose 113 mg/dl (70-99); Magnesium 1.7 mg/dl (1.6-2.3); Potassium 3.4 mmol/L (3.5-5.1); Sodium 140 mmol/L (135-145); eGFR > 60.00
[2023-07-19] MEDS: LOPRESSOR 2.5 MG IV (05:48)
--- NOTE | 2023-07-19 06:27 | W.PN.HOSP.TC ---
Addendum entered and electronically signed by Leonel Gold MD 07/19/23 09:15:
Addendum
Starting citalopram to hopefully help with his insomnia/restlessness
Patient on IV fluconazole for oropharyngeal candidiasis, will monitor QT. Order EKG in a.m.
End
Original Note:
Today's Communication/Plan
-
.
Assessment / Plan
Assessment / Plan
Physical Exam
General: No Apparent Distress
HEENT: Normocephalic, Moist mucous membranes and Atraumatic. Hard hearing.
Respiratory: Clear
Cardiac: S1/S2
GI: Soft, laparotomy sutures noted, no bleeding
Rectal: no rectal bleeding
Musculoskeletal: No Clubbing, No Cyanosis and No Edema
Skin: No Rash
Neuro: Nonfocal/grossly intact, AAOX3.
Psych: calm
# Medications induced delirium, Toxic metabolic encephalopathy, likely opioid induced especially combined with Benzodiazepine. He was confused and agitated last night. Pulled off his NG. Now he is calm and following commands, s alert, but unable to
sleep and restless. at bed side helping with re-orientation.
less likely steroid
Stopped Dilaudid, use Tylenol for pain
neurologist wanted to c/w prednisone
Monitor closely. His Blood work did not show worsening metabolic abnormalities.
MRI Brain no stroke.
c/w home dose of PRN Ativan
# Sepsis POA with tachycardia, neutrophilia then leukopenia and diverticulitis with abscess/perforation/ Diffuse purulent peritonitis
-CT abdomen pelvis shows acute diverticulitis with 3.5 cm fluid collection at the anterior margin of the sigmoid colon and free intraperitoneal air
-Status post exploratory laparotomy with sigmoid resection/and colostomy (Melo's procedure) by Dr. Ny on07/13/23. No complications reported.
- Tylenol for pain only. Avoid narcotics as possible. \\
Wound culture c/w E coli & enterococcus.
NG was removed by pt while confused. He tolerated liquid diet. Good colostomy output.
Status post Kcentra
s/p intravenous Zosyn, now on IV Unasyn
-Appreciate surgery & ID help
# Oral thrush, c/w Nystatin orally
# Insomnia
c/w Benzodiazepine.
pt takes Ativan 1 mg every night
Avoid withdrawal
c/w PRN Ativan
# History of metastatic lung cancer on chemotherapy (Taxotere, Cyramza)
Primary oncologist Dr. Daniels
Recent treatment in outpatient setting
Continue supportive care
Appreciate oncology input
# Chemotherapy-induced neutropenia
White blood cell count is recovering and now at 21, reactive to TX.
s/p Granix 480mcg SQ daily
# Acute blood loss anemia with anemia secondary to cancer treatment
HGB 7.5 and seems to trend down from 8 on admission
d/w oncology, will give one unit of RBCs.
# Hypocalcemia, replace with IV calcium gluconate
# Hypokalemia,
resolving, c/w K in IVF gtt. Change to oral upon resuming more oral intake.
# hypophosphatemia
replace
# Hypomagnesemia , today is 1.7
Replace with IV Mg sulfate, will do 1 gm today
# Hyponatremia, resolved. NA at 140
# Anemia of cancer/inflammation/anemia of chronic disease
Transfuse blood if hemoglobin less than 8
# Resolved incidence of hematuria
-Check urinalysis
-Outpatient follow-up with urology
-Eliquis is restarted 07/17
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
- Resuming Eliquis.
#Essential hypertension
Continue with IV metoprolol with holding parameters, continue monitoring on telemetry
Change to oral meds.
#GERD
Changed to IV Protonix
#Myasthenia gravis
Not in exacerbation on exam
He denies weakness, double vision
-Hold mycophenolate
Continue with pyridostigmine , prednisone was added 07/15
Appreciate neurology input
#Chronic lower extremity edema
-Hold Lasix for now.
#BPH
#Hyperlipidemia
Hold statin, fenofibrate, resume upon dc.
#Anxiety/depression
- Resume citalopram, might help with sleep.
Full code
DVT prophylaxis�SCDs
N.p.o.
�Total time spent to see the patient, examine the patient on the floor, review data and lab results, discuss treatment plan with the patient, family, oncology, nursing staff around 59 minutes
Anticipated Discharge: 24 - 48 hours
Subjective/Interval History
-
Date of Service: July 19, 2023
Can not sleep but no agitation, only restlessness
Objective Data
-
Labs:
Laboratory Results
07/19/23
03:45
WBC 21.6 H
Hgb 7.5 L
Hct 22.3 L
Plt Count 192
Sodium 140
Potassium 3.4 L
Chloride 111 H
Carbon Dioxide 25
BUN 11
Creatinine 0.5 L
Glucose 113 H
Calcium 8.2 L
Vital Signs:
Vital Signs
Temp Pulse Resp BP Pulse Ox
98.2 F 92 27 158/87 98
07/19/23 03:45 07/19/23 05:48 07/19/23 04:32 07/19/23 05:48 07/18/23 22:51
I&O
07/17/23 07/18/23 07/19/23
06:59 06:59 06:59
Intake Total 1450 / 1450 2140 / 2140 600 / 600
Output Total 650 / 650 1025 / 1025 1525 / 1525
Balance 800 / 800 1115 / 1115 -925 / -925
[2023-07-19] MEDS: PROTONIX IV 40 MG IV (07:45)
[2023-07-19] MEDS: D5/0.9% with KCL 40 MEQ 1000 IV ×2 (07:46→23:11)
[2023-07-19] MEDS: NSS (PRESERVATIVE FREE) 10 ML IV (07:46)
[2023-07-19] MEDS: TYLENOL 1000 MG PO ×2 (09:52→15:09)
[2023-07-19] MEDS: MESTINON 60 MG PO ×3 (09:53→21:02)
[2023-07-19] MEDS: ELIQUIS 2.5 MG PO ×2 (09:53→20:51)
[2023-07-19] MEDS: DELTASONE 20 MG PO (09:53)
--- NOTE | 2023-07-19 09:57 | W.PN.ID1 ---
Date of Service
Date of Service: July 19, 2023
Today's Communication
continue fluconazole, unasyn
Assessment / Plan
# Perforated sigmoid diverticulitis
# Purulent peritonitis
- 07/13/23 s/p ex-lap, washout, sigmoid resection, end colostomy
- OR cx's: E coli, amp sensitive E faecium, CONS, strep, diphteroid
- Appreciate Colorectal surgeon
- continue Unasyn
- follow clinically
# Immunocompromised host
-Metastatic lung ca on chemo
-Myasthenia gravis on cellcept, steroid
# Leukocytosis
# Neutropenia due to chemo - resolved
- Received Tbo-Filgrastim
# Oral Thrush
- on nystatin however with persistent symptoms
- continue IV fluconazole
- QTc remains acceptable
#Additional Past Medical History:
Lung CA with liver mets on Taxotere, Cyramza
Port placement (02/2023)
hx SVC syndrome
BPH
GERD
Hypertension
Myasthenia gravis, on Cellcept, steroid
Diverticulitis
Chronic LE edema
CLAUDIO
Hard of hearing
Appendectomy
Vasectomy
Left shoulder replacement
Chief Complaint
-: Other (Perforated diverticulitis)
Subjective / Review of Systems
afebrile
bp stable
increased wbc count today (had neupogen)
hgb stable, plt normal
cr 0.5
voice notaly hoarse, no longer with dysphagia
Vital Signs / Physical Exam
Vital Signs
Vital Signs
Temp Pulse Resp BP Pulse Ox
98.5 F 92 27 158/87 98
07/19/23 07:50 07/19/23 05:48 07/19/23 04:32 07/19/23 05:48 07/18/23 22:51
Physical Exam
Constitutional: No Acute Distress
Cardiovascular: Regular Rate and S1/S2; Negative Murmur or Rub
Pulmonary: Clear and Symmetric; Negative Wheezes or Rales
Gastrointestinal: Soft, Non Tender, Non Distended and Normal Bowel Sounds
Skin: Warm and Dry; Negative Rash or Jaundice
Physical Exam:
hoarse voice noted
Objective Data
Lab Data
Lab Results
07/19/23 03:45
07/19/23 03:45
PT 15.4 Sec (11.4-14.6) H 07/13/23 18:17
INR 1.24 07/13/23 18:17
APTT 39.6 Sec (23.4-35.0) H 07/13/23 18:17
Estimated Creat Clear 118 ml/min 07/19/23 03:45
Lactic Acid 2.6 mmol/L (0.7-2.0) H 07/13/23 15:40
Total Bilirubin 0.6 mg/dl (0.2-1.3) 07/17/23 05:02
AST 32 U/L (17-59) 07/17/23 05:02
ALT 19 U/L (0-50) 07/17/23 05:02
Alkaline Phosphatase 44 U/L (38-126) 07/17/23 05:02
Most recent labs reviewed.
Micro Results:
07/13/23 20:00 Wound Culture - Final
Abdomen Escherichia coli
Enterococcus faecium
Gram Stain - Final
07/13/23 20:00 Anaerobic Culture - Final
Peritoneal Fluid
07/13/23 15:40 Blood Culture - Final
Blood/Venous No Growth - Final Report
07/13/23 15:40 Blood Culture - Final
Blood/Venous No Growth - Final Report
07/13/23 CT a/p w IV contrast: Diverticuli are present in the colon with moderate pericolonic inflammatory stranding around the sigmoid colon consistent with acute diverticulitis. There is a 3.5 cm low-density fluid collection at the anterior margin
of the sigmoid colon consistent with peridiverticular abscess and there is free intraperitoneal air consistent with perforated viscus. Hepatic metastasis measuring up to 6.3 cm
07/15/23 Brain MRI: No acute intracranial abnormality noted.
--- NOTE | 2023-07-19 11:14 | W.PN.CRS1 ---
Today's Communication / Plan
-
- Advance to low residue diet
- Continue IV abx per ID
- IS/OOB, PT
- Appreciate WOCN for ostomy teaching and supplies
- Local wound care
- Pathology c/w diverticulitis
� Appreciate neuro for dysarthria and history of MG; MRI brain negative
- Appreciate hospitalist and ID
- Patient's is at the bedside
Assessment/Plan
-
POD 6 s/p ex lap with Smith's procedure
AFVSS, abd nontender, non-distended
the stoma is functioning
WBC increased to 21.6, which is most likely due to the granix, Hb stable at 7.5
Subjective Data
Procedure
07/13/2023- Exploratory laparotomy, sigmoid resection and end colostomy (Smith's procedure)
Subjective Data
Date of Service: July 19, 2023
Appears less agitated today but did not sleep well last night. He states the liquids went down well and he denies any pain. He is hungry and wants to go home.
Objective Data
-
Vital Signs
Temp Pulse Resp BP Pulse Ox
98.5 F 92 27 158/87 98
07/19/23 07:50 07/19/23 05:48 07/19/23 04:32 07/19/23 05:48 07/18/23 22:51
Intake & Output
07/18/23 07/19/23 07/20/23
06:59 06:59 06:59
Intake Total 2140 / 2140 600 / 600 480 / 480
Output Total 1025 / 1025 1525 / 1525 250 / 250
Balance 1115 / 1115 -925 / -925 230 / 230
Intake:
IV fluids (Total) 1500 / 1500 360 / 360
IV piggybacks 550 / 550 600 / 600 120 / 120
Amount instilled into GI Tube ( 90 / 90
Total)
[place] Sump 90 / 90
Output:
Liquid stool amount 600 / 600 50 / 50
Colostomy 600 / 600 50 / 50
Gastrointestinal tube output ( 250 / 250
Total)
[place] Sump 250 / 250
Urine, Voided 775 / 775 925 / 925 200 / 200
Lab Results
07/19/23 03:45
07/19/23 03:45
Physical Exam
-
General: No Acute Distress
Abdomen: Soft, Non Distended, Non Tender and Other (the ostomy is functioning)
Extremities: No Calf Tenderness
Wound: Dressing Changed (few of the lower kyra were removed to promote drainage)
[2023-07-19] MEDS: TUMS 2 TABLET PO (11:41)
[2023-07-19] MEDS: TOPROL XL 25 MG PO ×2 (11:41→20:51)
--- NOTE | 2023-07-19 12:30 | W.PN.NEURO.1 ---
Today's Communication / Plan
-
.
Subjective/Objective
Subjective Data
Date of Service: July 19, 2023
24-hour events: afebrile, intermittently confused. Dysarthria slightly improved. Continues to be on Unasyn for purulent peritonitis.
According to the the family the patient was able to tolerate pur�ed diet. No reports of dyspnea
Labs: Normal sodium, glucose�133, normal WBCs.
PMH: Generalized myasthenia gravis, L thalamic infarct(01/2023), RIJV/SVC thrombus, SVC syndrome, stage IV poorly differentiated pulmonary adenocarcinoma, GERD, HTN, DLP, COPD, MDD, JO, Mancuso's esophagus, BPH,
PSH: sigmoid resection and end colostomy(07/14/2023), hepatic mass biopsy(01/2023), appendectomy, tonsillectomy, vasectomy
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
FH:father-prostate CA, sister-breast CA,
All:Zithromax
ROS: Constitutional: Negative. Negative for chills, fever and unexpected weight change.
HENT: Positive for poor hearing, dysphonia.
Eyes: Negative. Negative for photophobia, pain and visual disturbance.
Respiratory:positive for shortness of breath.
Cardiovascular: Negative for chest pain, palpitations and leg swelling.
Gastrointestinal: positive for abdominal pain, xerostomia
Endocrine: Negative. Negative for cold intolerance.
Genitourinary: Negative for dysuria, flank pain and urgency.
Musculoskeletal: Negative for back pain, gait problem, neck pain and neck stiffness.
Skin: Negative for rash.
Allergic/Immunologic: Negative. Negative for immunocompromised state.
Neurological: positive for dysarthria, intermittent confusion
�
General: Well developed. In no acute distress.
Cardio:Tachycardic
Neuro:
Mental Status: Alert, oriented to person, place, and date.� Preserved attention.� Follows simple requests. Comprehension, naming, and repetition intact. Anxious
Cranial Nerves: Pupils are equally round and reactive to light.� EOMs full.� Visual chan full to confrontation.� No ptosis.� No nystagmus.� V1-V3 intact to light touch and pinprick bilaterally, symmetric.� Face symmetric.�Poor hearing AU.� The
palate elevated well.� SCMs and traps 5/5.� Tongue midline.� Mild to moderate dysarthria.� Moderate dysphonia
Motor:� � � � Normal bulk and tone.� No pronator or arm drift.� Strength 5/5 throughout. No clonus.
Reflexes: � � � � neg clonus BL
Sensory: normal LT
Coordination: no tremor/myoclonus
Gait: � � � � � deferred
Assessment and Plan:
�
�I. Generalized myasthenia gravis, worse after Rocuronium administration. Stay
II. History of L thalamic infarct(01/2023)
III.� Multifactorial encephalopathy/suspected delirium
�
-Aspiration precautions
-Continue Mestinon to 60 mg QID
-prednisone 20 mg QD with closed observation of respiratory status
-Will consider IVIG based on clinical course
-The case was discussed with patient's family
�
I personally reviewed all radiology and labs along with past medical records pertinent to current medical problems. Total time spent in patient care is 35 minutes.
�
Thank you for allowing us to participate in the care of this patient. We will continue to follow. Please do not hesitate to contact us with any questions or concerns.
Objective Data
Vital Signs
Temp Pulse Resp BP Pulse Ox
36.5 C 86 29 158/78 98
07/19/23 11:46 07/19/23 11:46 07/19/23 11:46 07/19/23 11:46 07/18/23 22:51
Lab Results
07/19/23 03:45
07/19/23 03:45
PT 15.4 Sec (11.4-14.6) H 07/13/23 18:17
INR 1.24 07/13/23 18:17
APTT 39.6 Sec (23.4-35.0) H 07/13/23 18:17
Sodium 140 mmol/L (135-145) 07/19/23 03:45
Potassium 3.4 mmol/L (3.5-5.1) L 07/19/23 03:45
BUN 11 mg/dl (9-20) 07/19/23 03:45
Glucose 113 mg/dl (70-99) H 07/19/23 03:45
Calcium 8.2 mg/dl (8.4-10.2) L 07/19/23 03:45
Phosphorus 1.2 mg/dl (2.5-4.5) L 07/18/23 04:59
Vitamin B12 > 1000 pg/ml (239-931) H 07/13/23 20:48
Patient Allergies
No Known Allergies Allergy (Verified 07/13/23 11:58)
[2023-07-19] MEDS: DIFLUCAN 200 MG 100 IV (15:12)
[2023-07-19] MEDS: ATIVAN 0.5 MG PO (17:50)
--- NOTE | 2023-07-19 22:14 | PTCARENOTE ---
Lisa dillard obtained and provided for sleep; Pt reports he is not allowed to take melatonin due to Myasthenia Gravis
[2023-07-19] MEDS: BENADRYL 25 MG PO (23:07)
[2023-07-20] VITALS (7 sets, daily range): BP systolic 120–164; BP diastolic 44–94
[2023-07-20] MEDS: UNASYN IV ×4 (03:32→22:07)
[2023-07-20] MEDS: TYLENOL 1000 MG PO ×2 (03:32→10:01)
--- NOTE | 2023-07-20 08:09 | W.PN.HOSP.TC ---
Today's Communication/Plan
-
Continue IV antibiotics and IV antifungal.
Assessment / Plan
Assessment / Plan
Physical Exam:
General: No Apparent Distress
HEENT: Normocephalic, Moist mucous membranes and Atraumatic. Hard hearing.
Respiratory: Clear
Cardiac: S1/S2
GI: Soft, laparotomy sutures noted, no bleeding
Rectal: no rectal bleeding
Musculoskeletal: No Clubbing, No Cyanosis and No Edema
Skin: No Rash
Neuro: Nonfocal/grossly intact, AAOX3.
Psych: calm
A/P:
# Medications induced delirium, Toxic metabolic encephalopathy, likely opioid induced especially combined with Benzodiazepine. He was confused and agitated last night. Pulled off his NG. Now he is calm and following commands, s alert, but unable to
sleep and restless. at bed side helping with re-orientation.
less likely steroid
Stopped Dilaudid, use Tylenol for pain
neurologist wanted to c/w prednisone but but taper over next several days. No clear-cut of flare at this point of myasthenia gravis.
Monitor closely. His Blood work did not show worsening metabolic abnormalities.
MRI Brain no stroke.
c/w home dose of PRN Ativan
Discussed with son at bedside
QTc at decent level today
# Sepsis POA with tachycardia, neutrophilia then leukopenia and diverticulitis with abscess/perforation/ Diffuse purulent peritonitis
-CT abdomen pelvis shows acute diverticulitis with 3.5 cm fluid collection at the anterior margin of the sigmoid colon and free intraperitoneal air
-Status post exploratory laparotomy with sigmoid resection/and colostomy (Melo's procedure) by Dr. Ny on07/13/23. No complications reported.
- Tylenol for pain only. Avoid narcotics as possible. \\
Wound culture c/w E coli & enterococcus.
NG was removed by pt while confused. He tolerated liquid diet. Good colostomy output.
Status post Kcentra
s/p intravenous Zosyn, now on IV Unasyn
-Appreciate surgery & ID help
# Oral thrush, c/w Nystatin orally
# Insomnia
c/w Benzodiazepine.
pt takes Ativan 1 mg every night
Avoid withdrawal
c/w PRN Ativan
# History of metastatic lung cancer on chemotherapy (Taxotere, Cyramza)
Primary oncologist Dr. Daniels
Recent treatment in outpatient setting
Continue supportive care
Appreciate oncology input
# Chemotherapy-induced neutropenia
White blood cell count is recovering and now at 21, reactive to TX.
s/p Granix 480mcg SQ daily
# Acute blood loss anemia with anemia secondary to cancer treatment
HGB 7.5 and seems to trend down from 8 on admission-->8.8 today
d/w oncology, given one unit of RBCs.
# Hypocalcemia, replace with IV calcium gluconate
# Hypokalemia,
resolved
s/p K in IVF gtt. Change to oral upon resuming more oral intake.
# hypophosphatemia
replaced
# Hypomagnesemia , today is 1.7
Replaced with IV Mg sulfate
# Hyponatremia, resolved. NA at 140
# Anemia of cancer/inflammation/anemia of chronic disease
Transfuse blood if hemoglobin less than 8
# Resolved incidence of hematuria
-Check urinalysis
-Outpatient follow-up with urology
-Eliquis is restarted 07/17
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
- Resuming Eliquis.
#Essential hypertension
Continue with IV metoprolol with holding parameters, continue monitoring on telemetry
Change to oral meds.
#GERD
Changed to IV Protonix
#Myasthenia gravis
Not in exacerbation on exam
He denies weakness, double vision
-Hold mycophenolate
Continue with pyridostigmine , prednisone was added 07/15
Appreciate neurology input
#Chronic lower extremity edema
-Hold Lasix for now.
#BPH
#Hyperlipidemia
Hold statin, fenofibrate, resume upon dc.
#Anxiety/depression
- Resume citalopram, might help with sleep.
Full code
DVT prophylaxis�SCDs
N.p.o.
�Total time spent to see the patient, examine the patient on the floor, review data and lab results, discuss treatment plan with the patient, family, oncology, nursing staff around 55 minutes
Anticipated Discharge: 24 - 48 hours
Subjective/Interval History
-
Date of Service: July 20, 2023
Patient seen and examined today. Complains of mouth discomfort. Reviewed EKG results with son at bedside.
Objective Data
-
Vital Signs:
Vital Signs
Temp Pulse Resp BP Pulse Ox
98.1 F 71 24 120/67 97
07/20/23 07:38 07/20/23 04:00 07/20/23 04:00 07/20/23 02:00 07/20/23 02:04
I&O
07/19/23 07/20/23 07/21/23
06:59 06:59 06:59
Intake Total 600 / 600 3840 / 3840
Output Total 1525 / 1525 1600 / 1600 300 / 300
Balance -925 / -925 2240 / 2240 -300 / -300
Review of Systems
-
All other systems: Reviewed and negative
[2023-07-20] MEDS: DELTASONE 20 MG PO (08:20)
[2023-07-20] MEDS: TOPROL XL 25 MG PO ×2 (08:20→20:45)
[2023-07-20] MEDS: CELEXA 10 MG PO (08:20)
[2023-07-20] MEDS: ELIQUIS 2.5 MG PO ×2 (08:20→20:45)
[2023-07-20] MEDS: MESTINON 60 MG PO ×3 (08:20→20:45)
[2023-07-20] MEDS: PROTONIX 40 MG PO (08:22)
--- NOTE | 2023-07-20 08:24 | W.PN.NEURO.1 ---
Today's Communication / Plan
-
-Maintain 60 mg 4 times daily pyridostigmine
-Decrease prednisone to 10 mg daily for the next 4 days and stop after 07/23
-Minimize sedating medications frequent reorientation for toxic metabolic encephalopathy
-Postsurgical care
Will follow as needed call with questions and concerns
Neuro Assessment/Plan
Assessment
67-year-old man with medical history of myasthenia gravis, lung cancer, hypertension presented to hospital with sepsis and was found to have diverticulitis with abscess and perforation requiring abdominal surgery and Smith procedure
Reports has had some toxic metabolic encephalopathy which appears improving
Patient does not appear to be in a flare of myasthenia gravis currently
Subjective/Objective
Subjective Data
Date of Service: July 20, 2023
No acute events, denies diplopia, ptosis, dysarthria, having flattus and bowel movements
Objective Data
Vital Signs
Temp Pulse Resp BP Pulse Ox
98.1 F 71 24 147/83 97
07/20/23 07:38 07/20/23 08:20 07/20/23 04:00 07/20/23 08:20 07/20/23 02:04
Lab Results
07/19/23 03:45
07/19/23 03:45
PT 15.4 Sec (11.4-14.6) H 07/13/23 18:17
INR 1.24 07/13/23 18:17
APTT 39.6 Sec (23.4-35.0) H 07/13/23 18:17
Sodium 140 mmol/L (135-145) 07/19/23 03:45
Potassium 3.4 mmol/L (3.5-5.1) L 07/19/23 03:45
BUN 11 mg/dl (9-20) 07/19/23 03:45
Glucose 113 mg/dl (70-99) H 07/19/23 03:45
Calcium 8.2 mg/dl (8.4-10.2) L 07/19/23 03:45
Phosphorus 1.2 mg/dl (2.5-4.5) L 07/18/23 04:59
Vitamin B12 > 1000 pg/ml (239-931) H 07/13/23 20:48
Patient Allergies
No Known Allergies Allergy (Verified 07/13/23 11:58)
Review of Systems
-
History Source: Patient
All other systems: Reviewed and negative
Constitutional: No Symptoms
EENT: No Symptoms Reported
Respiratory: No Symptoms
Cardiac: No Symptoms
Abdomen/GI: No Symptoms
Genitourinary: No Symptoms
Musculoskeletal: No Symptoms
Skin: No Symptoms
Neuro: No Symptoms
Endocrine: No Symptoms
Hematologic / Lymphatic: No Symptoms
Allergy / Immunology: No Symptoms
Physical Exam
-
General: Comfortable
Eyes: No Ptosis
HEENT: Normocephalic
Neck: No Bruits Bilaterally
Respiratory: Clear to Auscultation
Cardiac: Regular Rhythm
GI: Normal Bowel Sounds, Soft and Non-tender
Skin: Warm; Negative Rash
Extremities: No Edema
Psych: Intact Judgement/Insight; Negative Confused
Extended Neurological Exam
Attention Span & Concentration: Awake, Alert and Interactive
Memory: Unremarkable
Tremor: Hand Tremor Absent
Involuntary Movement: None
Speech: Quality Unremarkable; Negative Expressive Aphasia, Receptive Aphasia or Dysarthric
Cranial Nerve II: Left Eye: Pupillary Reactivity Unremarkable and Pupillary Size Unremarkable
Cranial Nerve II: Right Eye: Pupillary Reactivity Unremarkable and Pupillary Size Unremarkable
Cranial Nerves III, IV, : Extraocular Movement: Extraocular Movement Full in all Directions and Other (No ptosis)
Cranial Nerve VII: Facial Symmetry: Normal Facial Symmetry
Muscle Strength, Overall: Other (Neck flexion extension 5/5, shoulder abduction arm flexion 5/5)
Pronator Drift: No Drift in Upper Extremities
Deep Tendon Reflexes: Trace Throughout
Data Reviewed
-
Labs: Report Reviewed
[2023-07-20] MEDS: D5/0.9% with KCL 40 MEQ 1000 IV (08:26)
[2023-07-20] MEDS: CHLORASEPTIC/SORE THROAT SPRAY 1 SPRAY PO (08:26)
--- NOTE | 2023-07-20 09:00 | PTCARENOTE ---
[facility] received from [facility] shift [facility]. Patient resting comfortably in bed. AAO, VSS. No events noted overnight. No complaints of pain. D5 NS with 40meqK through Subq port. Colostomy with brown liquid output, stoma pink and flush. Some complaints
of abdominal pain, will give Tylenol when appropriate. Call pereira in reach.
--- NOTE | 2023-07-20 11:13 | W.PN.ID1 ---
Date of Service
Date of Service: July 20, 2023
Today's Communication
Continue antibiotics.
Assessment / Plan
# Perforated sigmoid diverticulitis
# Purulent peritonitis
- 07/13/23 s/p ex-lap, washout, sigmoid resection, end colostomy
- OR cx's: E coli, amp sensitive E faecium, CONS, strep, diphteroid
- Appreciate Colorectal surgeon
- continue Unasyn (d#8 abx)
- follow clinically
# Immunocompromised host
-Metastatic lung ca on chemo
-Myasthenia gravis on cellcept, steroid
# Leukocytosis
# Neutropenia due to chemo - resolved
- Received Tbo-Filgrastim
# Oral Thrush
- on nystatin however with persistent symptoms
- continue IV fluconazole (d#3)
- QTc remains acceptable
#Additional Past Medical History:
Lung CA with liver mets on Taxotere, Cyramza
Port placement (02/2023)
hx SVC syndrome
BPH
GERD
Hypertension
Myasthenia gravis, on Cellcept, steroid
Diverticulitis
Chronic LE edema
CLAUDIO
Hard of hearing
Appendectomy
Vasectomy
Left shoulder replacement
Chief Complaint
-: Other (Perforated diverticulitis)
Subjective / Review of Systems
Review of Systems: No Fever and No Chills
Vital Signs / Physical Exam
Vital Signs
Vital Signs
Temp Pulse Resp BP Pulse Ox
98.1 F 71 24 147/83 95
07/20/23 07:38 07/20/23 08:20 07/20/23 04:00 07/20/23 08:20 07/20/23 09:46
Physical Exam
Constitutional: No Acute Distress, Comfortable and Non-toxic
Eyes: No Conjunctival Hemorrhage and Sclera Anicteric
Cardiovascular: S1/S2; Negative S3/S4 or Murmur
Pulmonary: Wheezes and Non Labored; Negative Rales or Rhonchi
Gastrointestinal: Soft, Non Distended and Other (Ostomy in place.)
Wound: Other (Abdominal wound dressed. No periwound erythema.)
Neurological: Awake and Alert
Objective Data
Lab Data
PT 15.4 Sec (11.4-14.6) H 07/13/23 18:17
INR 1.24 07/13/23 18:17
APTT 39.6 Sec (23.4-35.0) H 07/13/23 18:17
Estimated Creat Clear 118 ml/min 07/19/23 03:45
Lactic Acid 2.6 mmol/L (0.7-2.0) H 07/13/23 15:40
Total Bilirubin 0.6 mg/dl (0.2-1.3) 07/17/23 05:02
AST 32 U/L (17-59) 07/17/23 05:02
ALT 19 U/L (0-50) 07/17/23 05:02
Alkaline Phosphatase 44 U/L (38-126) 07/17/23 05:02
Most recent labs reviewed.
Micro Results:
07/13/23 20:00 Wound Culture - Final
Abdomen Escherichia coli
Enterococcus faecium
Gram Stain - Final
07/13/23 20:00 Anaerobic Culture - Final
Peritoneal Fluid
07/13/23 15:40 Blood Culture - Final
Blood/Venous No Growth - Final Report
07/13/23 15:40 Blood Culture - Final
Blood/Venous No Growth - Final Report
07/13/23 CT a/p w IV contrast: Diverticuli are present in the colon with moderate pericolonic inflammatory stranding around the sigmoid colon consistent with acute diverticulitis. There is a 3.5 cm low-density fluid collection at the anterior margin
of the sigmoid colon consistent with peridiverticular abscess and there is free intraperitoneal air consistent with perforated viscus. Hepatic metastasis measuring up to 6.3 cm
07/15/23 Brain MRI: No acute intracranial abnormality noted.
--- NOTE | 2023-07-20 12:55 | W.PN.CRS1 ---
Today's Communication / Plan
-
okay to d/c when medically cleared
Assessment/Plan
-
POD 7 s/p ex lap with Smith's procedure
- Continue low residue diet.
- Continue IV abx per ID
- IS/OOB, PT
- Appreciate WOCN for ostomy teaching and supplies
- Local wound care
- Pathology c/w diverticulitis
� Appreciate neuro for dysarthria and history of MG; MRI brain negative
- Appreciate hospitalist and ID
- OKay to d/c with [facility]N when medically cleared
Subjective Data
Procedure
07/13/2023- Exploratory laparotomy, sigmoid resection and end colostomy (Smith's procedure)
Subjective Data
Date of Service: July 20, 2023
Patient states he has no nausea or vomiting. He is tolerating a diet. He has no complaints.
Objective Data
-
Vital Signs
Temp Pulse Resp BP Pulse Ox
97.8 F 73 18 147/83 95
07/20/23 11:50 07/20/23 12:00 07/20/23 12:00 07/20/23 08:21 07/20/23 09:46
Intake & Output
07/19/23 07/20/23 07/21/23
06:59 06:59 06:59
Intake Total 600 / 600 3840 / 3840
Output Total 1525 / 1525 1600 / 1600 800 / 800
Balance -925 / -925 2240 / 2240 -800 / -800
Intake:
Oral fluids 1280 / 1280
IV fluids (Total) 1600 / 1600
IV piggybacks 600 / 600 460 / 460
Blood products 250 / 250
Blood Product Amount Infused ( 250 / 250
mL)
Packed Rbc Leukoreduced Unit 250 / 250
[id number]
Output:
Liquid stool amount 600 / 600 500 / 500 500 / 500
Colostomy 600 / 600 500 / 500 500 / 500
Urine, Voided 925 / 925 1100 / 1100 300 / 300
Physical Exam
-
General: No Acute Distress and AOx3
Abdomen: Soft, Non Distended, Non Tender and Other (colostomy warm and pink with output)
Skin: Warm and Dry
Wound: Dressing Changed
[2023-07-20] MEDS: DIFLUCAN 200 MG IV (12:56)
[2023-07-20] MEDS: DIFLUCAN 400 MG 100 MG IV (13:24)
[2023-07-20 13:52] LABS: % Basophils 0.6 % (0-2); % Eosinophils 0.1 % (0-6); % Immature Granulocytes 9.8 % (0-0.5); % Lymphocytes 5.9 % (20.5-51.1); % Monocytes 7.1 % (1.7-9.3); % Neutrophils 76.5 % (42.2-75.2); Absolute Basophils 0.1 10^3/uL (0-0.2); Absolute Immature Granulocytes 1.7 10^3/uL (0-0.05); Absolute Monocytes 1.3 10^3/uL (0.1-0.6); Absolute Neutrophils 13.5 10^3/uL (1.4-6.5); Hematocrit 27.3 % (39.0-52.0); Mean Corp Hgb Conc. 32.2 g/dL (33.0-37.0); Mean Corpuscular Hgb 32.5 pg (27.0-31.0); Mean Corpuscular Volume 100.7 fL (80.0-94.0); Mean Platelet Volume 10.4 fL (7.4-10.4); Nucleated Red Blood Cells % 2.6 % (-); Platelet Count 206 10^3/uL (130-400); Red Blood Cell Count 2.71 10^6/uL (4.70-6.10); Red Cell Dist. Width 16.2 % (11.5-14.5); White Blood Cell Count 17.6 10^3/uL (4.8-10.8)
[2023-07-20 14:00] LABS: Hemoglobin 8.8 g/dL (13.0-18.0)
--- NOTE | 2023-07-20 14:00 | WOUNDNOTE ---
WO RN note: Stoma pink and slightly budded. Peristomal skin intact. Instructed patient and pouch emptying and changing colostomy appliance using [place] wafer # [id number], Kody seal and [place] pouch # [id number]. emptied patient's pouch and
assisted with appliance change. Ostomy supplies in room. confirmed she received Wilber ostomy secure ostomy starter kit. She brought in the [place] ostomy pouch deodorizing lubricant sample which was applied in patient's ostomy pouch.
Next appliance change due .
[2023-07-20 14:01] LABS: ALT (SGPT) 23 U/L (0-50); AST (SGOT) 55 U/L (17-59); Alkaline Phosphatase 85 U/L (38-126); Blood Urea Nitrogen 8 mg/dl (9-20); Calcium 8.7 mg/dl (8.4-10.2); Carbon Dioxide 22 mmol/L (22-30); Chloride 109 mmol/L (98-107); Estimated Creatinine Clearance 118 ml/min; Glucose 127 mg/dl (70-99); Potassium 3.8 mmol/L (3.5-5.1); Sodium 134 mmol/L (135-145); Total Bilirubin 0.6 mg/dl (0.2-1.3); Total Protein 5.4 g/dl (6.3-8.2); eGFR > 60.00
--- NOTE | 2023-07-20 16:11 | VNURNOTE ---
Home Health Liaison met with patient, daughter and Lara at 1545 to discuss [facility] nurse/therapy, visits, schedule and homebound status. Patient is agreeable and understands that visits at home will be 2-3 x per week to assess and teach
medical management and ostomy care.
[facility] brochure provided with contact information. Patient is aware that [facility] will contact them for start of care in 1-2 days after discharge from .
[facility] referral completed in [facility].
[2023-07-20] MEDS: MYCOSTATIN ORAL SUSPENSION 5 ML PO ×2 (17:37→20:45)
--- NOTE | 2023-07-20 18:01 | W.PN.ONC2 ---
Today's Communication / Plan
-
Anticipate that pt will resume Taxotere as outpt. He had just started Taxotere/Cyramza.
Okay for d/c from Heme/Onc standpoint.
Impression
Impression
Metastatic lung cancer to liver on chemotherapy (Taxotere, Cyramza)
Acute perforated sigmoid diverticulitis s/p ex lap with Melo's procedure
Diffuse purulent peritonitis
Anemia of chronic disease
Chemotherapy-induced neutropenia - RESOLVED
Acute hematuria (resolved)
Hx SVC syndrome on Eliquis
Hx Myasthenia gravis
Weakness
Plan
Plan
S/P ex lap, sigmoid resection, end colostomy (Smith's procedure)
Transfuse as needed to maintain Hgb >7, PLT >20
Last treatment of Taxotere, Cyramza: Thu07/10/23 (with Aranesp)
SVC Syndrome:
Has resumed Eliquis
Subjective/Objective
Chief Complaint
Heme/Onc follow up of met lung cancer, hx SVC syndrome
Subjective
No complaints.
Vital Signs:
Vital Signs
Temp Pulse Resp BP Pulse Ox
97.6 F 73 18 147/83 95
07/20/23 15:15 07/20/23 12:00 07/20/23 12:00 07/20/23 08:21 07/20/23 09:46
Lab Results:
Laboratory Data
WBC 17.6 10^3/uL (4.8-10.8) H 07/20/23 13:35
Hgb 8.8 g/dL (13.0-18.0) L 07/20/23 13:35
Plt Count 206 10^3/uL (130-400) 07/20/23 13:35
PT 15.4 Sec (11.4-14.6) H 07/13/23 18:17
INR 1.24 07/13/23 18:17
APTT 39.6 Sec (23.4-35.0) H 07/13/23 18:17
eGFR > 60.00 07/20/23 13:34
Physical Exam
Awake, alert, non-toxic
[2023-07-20] MEDS: TUMS 2 TABLET PO (20:45)
[2023-07-21 02:55] VITALS: BP 136/72
[2023-07-21] MEDS: FLUSH (NSS) 6 FLUSH IV (04:11)
[2023-07-21] MEDS: UNASYN IV ×2 (04:11→09:03)
[2023-07-21 04:30] VITALS: BP 155/78
[2023-07-21 04:58] LABS: % Basophils 0.4 % (0-2); % Eosinophils 0.1 % (0-6); % Lymphocytes 8.2 % (20.5-51.1); % Neutrophils 75.3 % (42.2-75.2); Absolute Basophils 0.1 10^3/uL (0-0.2); Absolute Immature Granulocytes 1.3 10^3/uL (0-0.05); Absolute Lymphocytes 1.3 10^3/uL (1.2-3.4); Absolute Monocytes 1.3 10^3/uL (0.1-0.6); Absolute Neutrophils 11.8 10^3/uL (1.4-6.5); Hematocrit 25.8 % (39.0-52.0); Hemoglobin 8.3 g/dL (13.0-18.0); Mean Corp Hgb Conc. 32.2 g/dL (33.0-37.0); Mean Corpuscular Hgb 32.4 pg (27.0-31.0); Mean Corpuscular Volume 100.8 fL (80.0-94.0); Mean Platelet Volume 10.6 fL (7.4-10.4); Nucleated Red Blood Cells % 2.2 % (-); Platelet Count 211 10^3/uL (130-400); Red Blood Cell Count 2.56 10^6/uL (4.70-6.10); Red Cell Dist. Width 15.5 % (11.5-14.5); White Blood Cell Count 15.7 10^3/uL (4.8-10.8)
[2023-07-21 05:59] LABS: Blood Urea Nitrogen 8 mg/dl (9-20); Calcium 8.9 mg/dl (8.4-10.2); Carbon Dioxide 26 mmol/L (22-30); Chloride 100 mmol/L (98-107); Estimated Creatinine Clearance 118 ml/min; Glucose 77 mg/dl (70-99); Magnesium 1.2 mg/dl (1.6-2.3); Phosphorus 3.5 mg/dl (2.5-4.5); Potassium 3.5 mmol/L (3.5-5.1); Sodium 134 mmol/L (135-145); eGFR > 60.00
[2023-07-21] MEDS: MAGNESIUM SULFATE 50 IV (07:08)
[2023-07-21 07:21] VITALS: BP 150/88
[2023-07-21] MEDS: MYCOSTATIN ORAL SUSPENSION 5 ML PO (07:53)
[2023-07-21] MEDS: CELEXA 10 MG PO (07:53)
[2023-07-21] MEDS: ELIQUIS 2.5 MG PO (07:53)
[2023-07-21] MEDS: DELTASONE 10 MG PO (07:53)
[2023-07-21] MEDS: PROTONIX 40 MG PO (07:53)
[2023-07-21] MEDS: MESTINON 60 MG PO (07:53)
[2023-07-21] MEDS: TOPROL XL 25 MG PO (08:20)
[2023-07-21] MEDS: TYLENOL 1000 MG PO (08:30)
--- NOTE | 2023-07-21 08:57 | PTCARENOTE ---
Patient received from braille typist. Patient resting comfortably in bed. AAO, VSS. No events noted overnight. No complaints of pain. Colostomy with brown liquid output, stoma pink and flush. Some complaints of abdominal pain, will give Tylenol
again. Possible D/C today. Call pereira in reach.
--- NOTE | 2023-07-21 09:40 | W.PN.ID1 ---
Date of Service
Date of Service: July 21, 2023
Today's Communication
Transition Unasyn (d#9 abx) to Augmentin 875mg po bid through 07/26/23.
Transition IV fluconazole (d#4) to po fluconazole 100mg qd through 07/26/23
Assessment / Plan
# Perforated sigmoid diverticulitis
# Purulent peritonitis
- 07/13/23 s/p ex-lap, washout, sigmoid resection, end colostomy
- OR cx's: E coli, amp sensitive E faecium,
- Appreciate Colorectal surgeon
- Transition Unasyn (d#9 abx) to Augmentin 875mg po bid through 07/26/23.
# Immunocompromised host
-Metastatic lung ca on chemo
-Myasthenia gravis on cellcept, steroid
# Leukocytosis
# Neutropenia due to chemo - resolved
- Received Tbo-Filgrastim
# Oral Thrush
- on nystatin however with persistent symptoms
-Transition IV fluconazole (d#4) to po fluconazole 100mg qd through 07/26/23
- QTc remains acceptable
#Additional Past Medical History:
Lung CA with liver mets on Taxotere, Cyramza
Port placement (02/2023)
hx SVC syndrome
BPH
GERD
Hypertension
Myasthenia gravis, on Cellcept, steroid
Diverticulitis
Chronic LE edema
CLAUDIO
Hard of hearing
Appendectomy
Vasectomy
Left shoulder replacement
Chief Complaint
-: Other (Perforated diverticulitis)
Subjective / Review of Systems
Eating/swallowing well.
Vital Signs / Physical Exam
Vital Signs
Vital Signs
Temp Pulse Resp BP Pulse Ox
99.2 F 78 17 154/92 98
07/21/23 07:26 07/21/23 08:20 07/21/23 06:00 07/21/23 08:20 07/21/23 04:30
Physical Exam
Constitutional: No Acute Distress
Cardiovascular: Regular Rate and S1/S2
Pulmonary: Clear
Gastrointestinal: Soft, Non Tender and Non Distended
Neurological: AO x 3
Lines: Port (no erythema)
Objective Data
Lab Data
Lab Results
07/21/23 04:26
07/21/23 04:26
PT 15.4 Sec (11.4-14.6) H 07/13/23 18:17
INR 1.24 07/13/23 18:17
APTT 39.6 Sec (23.4-35.0) H 07/13/23 18:17
Estimated Creat Clear 118 ml/min 07/21/23 04:26
Lactic Acid 2.6 mmol/L (0.7-2.0) H 07/13/23 15:40
Total Bilirubin 0.6 mg/dl (0.2-1.3) 07/20/23 13:34
AST 55 U/L (17-59) 07/20/23 13:34
ALT 23 U/L (0-50) 07/20/23 13:34
Alkaline Phosphatase 85 U/L (38-126) 07/20/23 13:34
Most recent labs reviewed.
Micro Results:
07/13/23 20:00 Wound Culture - Final
Abdomen Escherichia coli
Enterococcus faecium
Gram Stain - Final
07/13/23 20:00 Anaerobic Culture - Final
Peritoneal Fluid
07/13/23 15:40 Blood Culture - Final
Blood/Venous No Growth - Final Report
07/13/23 15:40 Blood Culture - Final
Blood/Venous No Growth - Final Report
07/13/23 CT a/p w IV contrast: Diverticuli are present in the colon with moderate pericolonic inflammatory stranding around the sigmoid colon consistent with acute diverticulitis. There is a 3.5 cm low-density fluid collection at the anterior margin
of the sigmoid colon consistent with peridiverticular abscess and there is free intraperitoneal air consistent with perforated viscus. Hepatic metastasis measuring up to 6.3 cm
07/15/23 Brain MRI: No acute intracranial abnormality noted.
--- NOTE | 2023-07-21 09:45 | W.PN.HOSP.TC ---
Today's Communication/Plan
-
Discharge planning today.
Assessment / Plan
Assessment / Plan
Physical Exam:
General: No Apparent Distress
HEENT: Normocephalic, Moist mucous membranes and Atraumatic. Hard hearing.
Respiratory: Clear
Cardiac: S1/S2
GI: Soft, laparotomy sutures noted, no bleeding
Rectal: no rectal bleeding
Musculoskeletal: No Clubbing, No Cyanosis and No Edema
Skin: No Rash
Neuro: Nonfocal/grossly intact, AAOX3.
Psych: calm
A/P:
# Medications induced delirium, Toxic metabolic encephalopathy, likely opioid induced especially combined with Benzodiazepine. He was confused and agitated last night. Pulled off his NG. Now he is calm and following commands, s alert, but unable to
sleep and restless. at bed side helping with re-orientation.
less likely steroid
Stopped Dilaudid, use Tylenol for pain
neurologist wanted to c/w prednisone but but taper over next several days. No clear-cut of flare at this point of myasthenia gravis.
Monitor closely. His Blood work did not show worsening metabolic abnormalities.
MRI Brain no stroke.
c/w home dose of PRN Ativan
Discussed with son at bedside
QTc at decent level yesterday
Discussed with and son at bedside today on 07/20. All consultants cleared him for discharge today. Plan for discharge today
# Sepsis POA with tachycardia, neutrophilia then leukopenia and diverticulitis with abscess/perforation/ Diffuse purulent peritonitis
-CT abdomen pelvis shows acute diverticulitis with 3.5 cm fluid collection at the anterior margin of the sigmoid colon and free intraperitoneal air
-Status post exploratory laparotomy with sigmoid resection/and colostomy (Melo's procedure) by Dr. Ny on07/13/23. No complications reported.
- Tylenol for pain only. Avoid narcotics as possible. \\
Wound culture c/w E coli & enterococcus.
NG was removed by pt while confused. He tolerated liquid diet. Good colostomy output.
Status post Kcentra
s/p intravenous Zosyn, now on IV Unasyn --> change to oral antibiotics
-Appreciate surgery & ID help
# Oral thrush, c/w Nystatin orally
# Insomnia
c/w Benzodiazepine.
pt takes Ativan 1 mg every night
Avoid withdrawal
c/w PRN Ativan
# History of metastatic lung cancer on chemotherapy (Taxotere, Cyramza)
Primary oncologist Dr. Daniels
Recent treatment in outpatient setting
Continue supportive care
Appreciate oncology input
# Chemotherapy-induced neutropenia
White blood cell count is recovering and now at 21, reactive to TX.
s/p Granix 480mcg SQ daily
# Acute blood loss anemia with anemia secondary to cancer treatment
HGB 7.5 and seems to trend down from 8 on admission-->8.8 today
d/w oncology, given one unit of RBCs.
# Hypocalcemia, replace with IV calcium gluconate
# Hypokalemia,
resolved
s/p K in IVF gtt. Change to oral upon resuming more oral intake.
# hypophosphatemia
replaced
# Hypomagnesemia , today is 1.7
Replaced with IV Mg sulfate
# Hyponatremia, resolved. NA at 140
# Anemia of cancer/inflammation/anemia of chronic disease
Transfuse blood if hemoglobin less than 8
# Resolved incidence of hematuria
-Check urinalysis
-Outpatient follow-up with urology
-Eliquis is restarted 07/17
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
- Resuming Eliquis.
#Essential hypertension
Continue with IV metoprolol with holding parameters, continue monitoring on telemetry
Change to oral meds.
#GERD
Changed to IV Protonix
#Myasthenia gravis
Not in exacerbation on exam
He denies weakness, double vision
-Hold mycophenolate
Continue with pyridostigmine , prednisone was added 07/15
Appreciate neurology input
#Chronic lower extremity edema
-Hold Lasix for now.
#BPH
#Hyperlipidemia
Hold statin, fenofibrate, resume upon dc.
#Anxiety/depression
- Resume citalopram, might help with sleep.
Full code
DVT prophylaxis�SCDs
Anticipated Discharge: Today
Subjective/Interval History
-
Date of Service: July 21, 2023
Patient seen and examined today. No new complaints. Patient eager to go home today. Afebrile
Objective Data
-
Labs:
Laboratory Results
07/21/23
04:26
WBC 15.7 H
Hgb 8.3 L
Hct 25.8 L
Plt Count 211
Sodium 134 L
Potassium 3.5
Chloride 100
Carbon Dioxide 26
BUN 8 L
Creatinine 0.4 L
Glucose 77
Calcium 8.9
Vital Signs:
Vital Signs
Temp Pulse Resp BP Pulse Ox
99.2 F 78 17 154/92 98
07/21/23 07:26 07/21/23 08:20 07/21/23 06:00 07/21/23 08:20 07/21/23 04:30
I&O
07/20/23 07/21/23 07/22/23
06:59 06:59 06:59
Intake Total 3840 / 3840 360 / 360
Output Total 1600 / 1600 2160 / 2160
Balance 2240 / 2240 -1800 / -1800
[2023-07-21] MEDS: COMPAZINE 10 MG IV (09:49)
[2023-07-21] MEDS: DIFLUCAN 100 MG PO (10:23)
--- NOTE | 2023-07-21 12:13 | W.PN.CRS1 ---
Addendum entered and electronically signed by Ankush Obando MD 07/21/23 12:32:
I saw and examined the patient.
The PA's note was reviewed and I agree with the note.
Comment:
Seen in am with PA.
No complaints. Tolerated fulls.
Vitals ok. WBC 15.7.
Abdomen looked good. Stoma viable with output. Dressings changed.
OOB.
Go to [facility].
Antibiotics per ID.
Original Note:
Today's Communication / Plan
-
- Advance to low residue diet
- Continue IV abx per ID
- IS/OOB, PT
- Appreciate [facility] for ostomy teaching and supplies
- Local wound care
- Pathology c/w diverticulitis
� Appreciate neuro for dysarthria and history of MG; MRI brain negative
- Appreciate hospitalist and ID
-Okay for discharge from our perspective. Follow-up in the office in 2 weeks. Discussed with the patient and at bedside.
Subjective Data
Procedure
07/13/2023- Exploratory laparotomy, sigmoid resection and end colostomy (Smith's procedure)
Subjective Data
Date of Service: July 21, 2023
Patient states he feels well. He has not had a much pain. He is tolerating diet. His colostomy is functioning. He has no complaints.
Objective Data
-
Vital Signs
Temp Pulse Resp BP Pulse Ox
98.7 F 78 17 154/92 95
07/21/23 10:57 07/21/23 08:20 07/21/23 06:00 07/21/23 08:20 07/21/23 11:00
Intake & Output
07/20/23 07/21/23 07/22/23
06:59 06:59 06:59
Intake Total 3840 / 3840 360 / 360
Output Total 1600 / 1600 2160 / 2160 450 / 450
Balance 2240 / 2240 -1800 / -1800 -450 / -450
Intake:
Oral fluids 1280 / 1280 360 / 360
IV fluids (Total) 1600 / 1600
IV piggybacks 460 / 460
Blood products 250 / 250
Blood Product Amount Infused ( 250 / 250
mL)
Packed Rbc Leukoreduced Unit 250 / 250
[id number]
Output:
Liquid stool amount 500 / 500 960 / 960 150 / 150
Colostomy 500 / 500 960 / 960 150 / 150
Urine, Voided 1100 / 1100 1200 / 1200 300 / 300
Lab Results
07/21/23 04:26
07/21/23 04:26
Physical Exam
-
General: No Acute Distress and AOx3
Abdomen: Soft, Non Distended, Non Tender and Other (Colostomy warm and pink with function)
Wound: Dressing Changed
--- NOTE | 2023-07-21 12:36 | W.DCSUMMARY ---
Discharge Summary
Discharge Data
Date of Admission: 07/13/23
Date of Discharge: 07/21/23
-
Pending Results: No
Hospital Course
Patient 67 years old male with history of stage IV lung cancer, diverticulitis, SVC syndrome, hypertension, myasthenia gravis, GERD, chronic lower extremity edema, BPH, hyperlipidemia, presented to the hospital abdominal pain and found to have acute
diverticulitis. Patient was kept n.p.o., given broad-spectrum IV antibiotics, and IV fluids. Colorectal surgery consulted. Surgery reverse anticoagulation with Kcentra and took him to the OR on 07/12 for perforated sigmoid diverticulitis he
underwent exploratory laparotomy with sigmoid resection and end colostomy Melo's procedure. Hematology oncology consulted. Infectious disease consulted as well. Due to his myasthenia gravis neurology was consulted as well. Due to concerns for
myasthenia flare his myasthenia medications were increased Mestinon 30 to 60 mg 3 times a day and he was given a steroid course. Brain MRI was performed and no acute abnormalities found. Per oncology last treatment of Taxoretene and and Cyramza
was given on 07/09 and he was also given Granix daily while hospitalized and recommended to go back to Eliquis but 2.5 mg twice daily which he tolerated during this hospital stay and will be kept upon discharge. He was also treated with IV
fluconazole and oral nystatin for his persistent oral candidiasis. He is OR culture E. coli ampicillin sensitive Enterobacter faecium CON S strep diphtheroid. ID recommended to switch to oral antibiotics upon discharge. He is tolerating diet
well. He is afebrile. Otherwise he is hemodynamically stable. He is going to be discharged in stable condition today.
Discharge duration: 36 minutes
Discharge Plan
-
Patient Disposition: Home with Home Care
Discharge Diagnosis/Procedures: Sepsis. Toxic metabolic encephalopathy. Diverticulitis with perforation status post exploratory laparotomy, sigmoid resection, end colostomy. History of metastatic lung cancer. History myasthenia gravis.
Leukocytosis. Neutropenia. Oral candidiasis. History of superior vena cava syndrome.
Diet: Low Residue
Activity: As tolerated
Blood Work: Please PCP to order CBC, BMP within 1 week
Activity Restrictions/Additional Instructions:
To be used for colostomy
Change appliance q 3-4 days and prn leakage
Truman wafer #[id number], Kody seal and Truman pouch#[id number]. If leakage becomes a problem, try cut to fit soft convex Wilber wafer #[id number] instead. And can also add a large Wilber ostomy belt.
Call supply company (list in folder provided) for monthly Ostomy supplies after discharge (ask [facility] to order supplies while on service).
Follow up with surgeon.
Call [facility] RN nurse for ostomy pouching concerns or leakage problems [phone] or [phone] or [phone].
Referrals:
Rajesh Rodriguez MD [Active] - in four to six weeks
Fadi Ny MD [Active] - in one to two weeks
Kenya Ponce MD [Active] - in two to four weeks
Todd Gamboa MD [Family Provider] - in less than 1 week
Erin Meza MD [Active] - in four to six weeks
Prescriptions:
New
fluconazole 100 mg Tablet
100 mg PO DAILY 6 Days Qty: 6 0RF
nystatin 100,000 unit/mL Suspension
5 ml PO QID 3 Days Qty: 60 0RF
prednisone 10 mg Tablet
10 mg PO DAILY 3 Days Qty: 3 0RF
pyridostigmine bromide 60 mg Tablet
60 mg PO TID 30 Days Qty: 90 0RF
amoxicillin-pot clavulanate 875-125 mg Tablet
1 tab PO Q12 6 Days Qty: 12 0RF
Eliquis 2.5 mg Tablet
2.5 mg PO BID 30 Days Qty: 60 0RF
acetaminophen [Tylenol Extra Strength] 500 mg Tablet
1,000 mg PO Q8H PRN (Reason: mild/mod to severe pain) 5 Days Qty: 20 0RF
metoprolol succinate 25 mg Tablet Extended Release 24 Hr
25 mg PO BID 30 Days Qty: 60 0RF
Continued
fluticasone propionate 1 SPRAY spray,suspension
2 spray intranasal DAILY
furosemide 20 MG tablet
20 mg PO BID
therapeutic multivitamin Tablet
1 tab PO DAILY
folic acid 1 mg Tablet
1 mg PO DAILY
saw palmetto 450 mg Capsule
450 mg PO DAILY
guaifenesin [Mucinex] 1,200 mg Tablet Extended Release 12hr
1,200 mg PO QPM
guaifenesin [Mucus Relief ER] 600 MG tablet extended release 12hr
600 mg PO DAILY
omega 3-nkp-jij-fish oil [Fish Oil] 1,200 (144-216) mg Capsule
1 cap PO DAILY
docusate sodium 100 MG capsule
100 mg PO BID
citalopram 10 mg tablet
10 mg PO DAILY
ondansetron HCl 8 mg tablet
8 mg PO Q8H PRN (Reason: nausea/vomiting)
prochlorperazine maleate 10 mg tablet
10 mg PO Q6H PRN (Reason: nausea)
lidocaine-prilocaine 2.5-2.5 % cream
1 applic topical DAILY PRN (Reason: prior to port access)
mycophenolate mofetil 500 mg tablet
1,000 mg PO BID
fenofibrate 160 mg tablet
160 mg PO DAILY
potassium chloride 20 mEq tablet extended release
20 meq PO DAILY
atorvastatin 40 mg tablet
40 mg PO DAILY@1999
pantoprazole 40 mg tablet,delayed release (DR/EC)
40 mg PO BID@0700,1600
Discontinued
metoprolol tartrate 25 MG tablet
25 mg PO BID
acetaminophen [Tylenol Extra Strength] 500 mg Tablet
1,000 mg PO BID@1200,2200
dexamethasone 4 mg tablet
4 mg PO UD
Rx Instructions:
Take twice daily the day before, and for 2 days after chemo.
pyridostigmine bromide 60 mg tablet
30 mg PO QID
apixaban 5 mg Tablet
2.5 mg PO BID
amlodipine 10 MG tablet
10 mg PO DAILY
Discharge Orders:
Discharge Patient (As Directed); Ordered 07/21/23
Ordered By: Rajan Hernandez
Discharge Date and Time
Discharge Date/Time: 07/21/23 14:44
Print Language: ROMANIAN
[2023-07-21] MEDS: AUGMENTIN 875 MG/125 MG 1 TABLET PO (13:20)
[2023-07-21 14:05] VITALS: BP 161/88
--- NOTE | 2023-07-21 14:53 | PTCARENOTE ---
Patient discharged to home, with patient. Patient left with all known belongings and supplies. Discharge instructions reviewed and all questions answered. Transport called to escort patient via wheel chair.
--- NOTE | 2023-07-21 17:19 | CM ---
Met with patient and . The patient was preparing for discharge today, and states feels ready to go home. IMM completed. Patient/ aware the [facility] is setup. The spouse will provide transport home.
Plan home today with [facility].
== END 2023-07-21 14:44 | disposition home health service (06) | DRG 853 ==
LOC: IMU 18:22
PROVIDERS: Anesthesiology; Internal Medicine; Nurse Practitioner Family; Nurse Practitioner Gerontology; Physician Assistant; Surgery; ADMITTING PHYSICIAN Hospitalist; ATTENDING PHYSICIAN Hospitalist; CONSULT PHYSICIAN Surgery; EMERGENCY PHYSICIAN Emergency Medicine; FAMILY PHYSICIAN Family Medicine; OTHER PHYSICIAN Internal Medicine Hematology & Oncology; OTHER PHYSICIAN Internal Medicine Infectious Disease; OTHER PHYSICIAN Psychiatry & Neurology Neurology
PROC: 0D9670Z Drainage of Stomach with Drainage Device, Via Natural or Artificial Opening (ICD-10-PCS; 2023-07-13)
PROC: 3E0T33Z Introduction of Anti-inflammatory into Peripheral Nerves and Plexi, Percutaneous Approach (ICD-10-PCS; 2023-07-13)
PROC: 0D1M0Z4 Bypass Descending Colon to Cutaneous, Open Approach (ICD-10-PCS; 2023-07-13)
PROC: 3E0T3BZ Introduction of Anesthetic Agent into Peripheral Nerves and Plexi, Percutaneous Approach (ICD-10-PCS; 2023-07-13)
PROC: 30283B1 Transfusion of Nonautologous 4-Factor Prothrombin Complex Concentrate into Vein, Percutaneous Approach (ICD-10-PCS; 2023-07-13)
PROC: 0DTN0ZZ Resection of Sigmoid Colon, Open Approach (ICD-10-PCS; 2023-07-13)
PROC: 30243N1 Transfusion of Nonautologous Red Blood Cells into Central Vein, Percutaneous Approach (ICD-10-PCS; 2023-07-19)
DX: A41.9 Sepsis, unspecified organism (principal); G92.8 Other toxic encephalopathy; K65.0 Generalized (acute) peritonitis; K57.20 Diverticulitis of large intestine with perforation and abscess without bleeding; C34.10 Malignant neoplasm of upper lobe, unspecified bronchus or lung; C78.7 Secondary malignant neoplasm of liver and intrahepatic bile duct; D84.821 Immunodeficiency due to drugs; I87.1 Compression of vein; E87.1 Hypo-osmolality and hyponatremia; B37.0 Candidal stomatitis; D62 Acute posthemorrhagic anemia; D68.32 Hemorrhagic disorder due to extrinsic circulating anticoagulants; E44.0 Moderate protein-calorie malnutrition; K21.9 Gastro-esophageal reflux disease without esophagitis; I10 Essential (primary) hypertension; G70.00 Myasthenia gravis without (acute) exacerbation; N40.1 Benign prostatic hyperplasia with lower urinary tract symptoms; R33.8 Other retention of urine; E78.5 Hyperlipidemia, unspecified; D53.9 Nutritional anemia, unspecified; F32.9 Major depressive disorder, single episode, unspecified; F41.9 Anxiety disorder, unspecified; G47.33 Obstructive sleep apnea (adult) (pediatric); J44.9 Chronic obstructive pulmonary disease, unspecified; D70.1 Agranulocytosis secondary to cancer chemotherapy; Y92.9 Unspecified place or not applicable; D64.81 Anemia due to antineoplastic chemotherapy; D63.8 Anemia in other chronic diseases classified elsewhere; T45.1X5A Adverse effect of antineoplastic and immunosuppressive drugs, initial encounter; E87.6 Hypokalemia; E83.51 Hypocalcemia; H91.90 Unspecified hearing loss, unspecified ear; E83.42 Hypomagnesemia; R45.1 Restlessness and agitation; R59.1 Generalized enlarged lymph nodes; G47.00 Insomnia, unspecified; R60.0 Localized edema; Z79.69 Long term (current) use of other immunomodulators and immunosuppressants; Z87.891 Personal history of nicotine dependence; Z79.51 Long term (current) use of inhaled steroids; Z79.52 Long term (current) use of systemic steroids; Z92.21 Personal history of antineoplastic chemotherapy; Z79.01 Long term (current) use of anticoagulants; Z79.624 Long term (current) use of inhibitors of nucleotide synthesis; Z93.3 Colostomy status; Z96.612 Presence of left artificial shoulder joint; Z68.29 Body mass index [BMI] 29.0-29.9, adult
CPT/HCPCS: 88307; 51798; 70450; 70551; 74177; 80048; 80053; 81003; 81015; 82607; 82728; 82746; 82962; 83540; 83550; 83605; 83690; 83735; 84100; 85025; 85027; 85384; 85610; 85670; 85730; 86850; 86900; 86901; 86920; 87040; 87070; 87075; 87077; 87186; 87205; 92526; 92610; 93005; 96361; 96365; 96375; 97163; 97530; 99291; J1447; J7168; P9016; Q9967

== ENCOUNTER 2023-07-24 20:08 | Inpatient (IN) | payer MEDICARE, OTHER, SELFPAY ==
[2023-07-24 14:15] VITALS: BP 127/72
--- NOTE | 2023-07-24 14:37 | CON.CRS ---
Consultation
-
Date/Time Consultation Requested: 07/24/2023, 1430
Date/Time Consultation Performed: 07/24/2023, 1500
Performing Provider: Loyd Melvin MD
Reason for Consultation: wound dehescience
Medical History
-
Chief Complaint: wound discharge
History of Present Illness:
67-year-old male presents emergency room after being sent from clinic by Dr. Melvin. The patient has an extensive past medical history including stage IV lung cancer with metastasis to liver on chemotherapy, SVC syndrome, myasthenia's gravis, and a
recent sigmoidectomy with colostomy due to perforated diverticulitis on 07/13/[address] Ny. The patient was admitted to [facility] from 07/13/2023 and recently discharged on 07/21/2023. On discharge the patient's colostomy was functioning and he
was tolerating a low residue diet. He was also started back on his home Eliquis dose without issue.
The patient had called our office today complaining of redness around his incision with thick yellow pus coming out. He was immediately brought to the clinic for further examination. He complained of mild diffuse abdominal pain and drainage from
the incision. Given the appearance of the incision, malodorous odor, and pus, the patient was advised to go to the ER for imaging.
Past Medical History
Past Medical History: Other (diverticulitis, stage IV lung cancer with metastases to liver on chemotherapy, SVC syndrome, hypertension, GERD, myasthenia gravis, chronic lower extremity edema, BPH, hyperlipidemia)
Past Surgical History: Appendectomy, Bowel Resection (Hartmanns resection - 07/13/2023), Orthopedic, Tonsilectomy and Other (vasectomy)
Social History
Tobacco: Former Smoker
Alcohol: Occasional
Drug: None
Personal: Single
Family History
Family History: Reviewed & Not Pertinent
Allergies / Home Medications
Allergy/AdvReac Type Severity Reaction Status Date / Time
No Known Allergies Allergy Verified 07/13/23 11:58
�Medication �Instructions �Recorded �Confirmed �Type
fluticasone propionate 50 2 spray intranasal DAILY Congestion 04/13/20 07/13/23 History
mcg/actuation nasal
spray,suspension
furosemide 20 mg tablet 20 mg PO BID Fluid 05/01/20 07/13/23 History
retention/Swelling
folic acid 1 mg tablet 1 mg PO DAILY Supplement 02/02/23 07/13/23 History
guaifenesin 1,200 mg tablet, 1,200 mg PO QPM Cough 02/02/23 07/13/23 History
extended release 12 hr (Mucinex)
guaifenesin 600 mg tablet, 600 mg PO DAILY Cough 02/02/23 07/13/23 History
extended release 12 hr (Mucus
Relief ER)
saw palmetto 450 mg capsule 450 mg PO DAILY Supplement 02/02/23 07/13/23 History
therapeutic multivitamin 1 tab PO DAILY Supplement 02/02/23 07/13/23 History
omega 0-mbj-zmp-fish oil 1,200 mg 1 cap PO DAILY Supplement 03/03/23 07/13/23 History
(144 mg-216 mg) capsule (Fish Oil)
docusate sodium 100 mg capsule 100 mg PO BID STOOL SOFTENER 03/06/23 07/13/23 History
citalopram 10 mg tablet 10 mg PO DAILY Mental 07/13/23 07/13/23 History
Health/Anxiety
fenofibrate 160 mg tablet 160 mg PO DAILY HIGH TRIGLYCERIDES 07/13/23 07/13/23 History
lidocaine-prilocaine 2.5 %-2.5 % 1 applic topical DAILY PRN prior 07/13/23 07/13/23 History
topical cream to port access
mycophenolate mofetil 500 mg tablet 1,000 mg PO BID Transplant 07/13/23 07/13/23 History
ondansetron HCl 8 mg tablet 8 mg PO Q8H PRN nausea/vomiting 07/13/23 07/13/23 History
potassium chloride 20 mEq 20 meq PO DAILY Supplement 07/13/23 07/13/23 History
tablet,extended release
prochlorperazine maleate 10 mg 10 mg PO Q6H PRN nausea 07/13/23 07/13/23 History
tablet
atorvastatin 40 mg tablet 40 mg PO DAILY@2000 High 07/14/23 07/13/23 History
Cholesterol
pantoprazole 40 mg tablet,delayed 40 mg PO BID@0700,1600 GERD 07/14/23 07/13/23 History
release
acetaminophen 500 mg tablet 1,000 mg (2 x 500 mg) PO Q8H PRN 07/21/23 Rx
(Tylenol Extra Strength) mild/mod to severe pain 5 days #20
tabs
amoxicillin 875 mg-potassium 1 tab PO Q12 6 days #12 tabs 07/21/23 Rx
clavulanate 125 mg tablet
apixaban 2.5 mg tablet (Eliquis) 2.5 mg PO BID 30 days #60 tabs 07/21/23 Rx
fluconazole 100 mg tablet 100 mg PO DAILY 6 days #6 tabs 07/21/23 Rx
metoprolol succinate 25 mg 25 mg PO BID 30 days #60 tabs 07/21/23 Rx
tablet,extended release 24 hr
nystatin 100,000 unit/mL oral 5 ml PO QID 3 days #60 mL 07/21/23 Rx
suspension
prednisone 10 mg tablet 10 mg PO DAILY 3 days #3 tabs 07/21/23 Rx
pyridostigmine bromide 60 mg tablet 60 mg PO TID 30 days #90 tabs 07/21/23 Rx
Review of Systems
-
History Source: Patient
Abdomen/GI: Abdominal Pain
Skin: Other (yellow drainage from wound with odor)
A 10 point review of systems was completed, and was negative except as per HPI.
Physical Exam
Vital Signs
Temp 98.8 F 07/24/23 14:15
Pulse 90 07/24/23 14:15
Resp Rate 16 07/24/23 14:15
Blood pressure 127/72 07/24/23 14:15
SaO2 97 03/29/24 14:15
Lab Results / Allergies
Allergy/AdvReac Type Severity Reaction Status Date / Time
No Known Allergies Allergy Verified 07/13/23 11:58
Physical Exam
General: Well Developed, Well Nourished and No Apparent Distress
GI: Soft, Tender (diffuse throughout) and Incisions (Midline wound with kyra in place from top to middle, middle to bottom the wound has been opened. There is pus yellow in nature with a malodorous odor. Wound was packed.)
Neuro: AO x 3
Data Reviewed
-
Old Records: Reviewed
Assessment / Plan
-
Assessment: 67-year-old male with a recent Melo's resection due to diverticulitis with also stage IV lung cancer on Eliquis, presents to the ER after being sent from clinic due to his the appearance of the wound
Plan: Recommend CT of the abdomen pelvis with p.o. and IV contrast. Remain NPO. Lab work has been ordered. Hold Eliquis for now. Plans to follow once CT is performed. Discussed with patient and family.
--- NOTE | 2023-07-24 15:10 | ED.SKININJ ---
HPI-Injury
General
Chief Complaint: Skin Problem
Source: patient
Exam Limitations: none
Time Seen by Provider: 07/24/23 14:59
Nursing documentation reviewed up to this point in time: agreed with
Travel History
Have you had any contact with someone who has COVID-19?: No
Do you have any symptoms of coronavirus? Fever > 100 degrees, chills, cough, shortness of breath, sore throat, loss of taste or smell, muscle aches, or headache?: No
History of Present Illness-Injury
Initial Injury comments:
Patient sent to ED by Dr. Ny with concern of possible infection at abdominal surgical site. He is s/p sigmoidectomy and colostomy last week - hx diverticulitis. Daughter states that incision became red and 2 sutures were removed from site prior
to discharge. Site was then packed and he was discharged home on . Family reports increasing drainge from site since. Last PM colostomy leaked and wound became contaminated with stool. He was evaluated in office today by Dr. Melvin and sent
to ED. He is currently undergoing treatment for stage IV lung CA, recently began chemo. No fever/chills. Poor appetite but he is also being treated for thrush at this time. Denies any pain, n/v.
Past History
Past History
ED Past Medical History: Cancer (Lung cancer metastatic), GERD, HTN, Other (Myasthenia gravis on immune suppression was CellCept, Pancoast tumor) and Other (diverticulitis, myasthenia gravis)
ED Past Surgical History: Appendectomy, Bowel resection (colostomy sigmoidectomy last week.), Orthopedic and Other (Tonsillectomy, vasectomy)
Social History
Tobacco: Former smoker
Alcohol: Occasional
Drug: None
Personal:
Living: with family
Employment: Retired
Family History
Family History: Hypertension
Review of Systems
Review of Systems
Allergies reviewed?: Yes
All Other Systems: ROS reviewed and negative except as documented in HPI and ROS
Constitutional: Reports no symptoms
EENT: Reports other (currently being treated for thrush)
Respiratory: Reports other (No respiratory complaints. Stage IV lung CA)
Cardiac: Reports no symptoms
ABD/GI: Reports other (poor appetite)
: Reports no symptoms
Musculoskeletal: Reports no symptoms
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
Neurological: Reports no symptoms
Psychiatric: Reports no symptoms
Phy Exam
General Physical Exam
General Presentation: well appearing and no apparent distress
General age: appears stated age
General Skin: warm and dry
General Habitus: normal
General Mental: alert
Gastrointestinal Exam
Gastrointestinal Exam: normal bowel sounds, non tender, soft, no organomegaly and non distended
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
Musculoskeletal Exam
Musculoskeletal Exam: full ROM and neuro vasc intact
Skin Exam
Skin Exam: normal color, warm/dry and no rash
Psychiatric Exam
Psychiatric Exam: normal mood/affect
Course
Orders/Labs/Results
Orders:
Orders
07/24/23 15:03
CT Abd/pel W Iv And Oral Contr Urgent
Comment:
Reason For Exam: Recent colostomy, possible fistula
Iohexol [Omnipaque] See Protocol PO NOW STA
07/24/23 15:10
0.9% Sodium Chloride 500 ml [Nss] 500 ml IV BOLUS
07/24/23 15:37
Osmolality, Random Urine Urgent
Date Specimen was Collected: 07/24/23
Time Specimen was Collected: 15:33
Urinalysis Reflex To Culture Urgent
Date Specimen was Collected: 07/24/23
Time Specimen was Collected: 15:33
Urine Sodium Urgent
Date Specimen was Collected: 07/24/23
Time Specimen was Collected: 15:33
07/24/23 16:17
Complete Blood Count/With Diff Urgent
Comprehensive Metabolic Panel Urgent
Lactic Acid Urgent
Magnesium Urgent
Comment: ADD ON
Serum Osmolality Urgent
Comment: ADD ON
07/24/23 17:57
0.9% Sodium Chloride 1000 ml [Nss] 1,000 ml IV BOLUS
07/24/23 18:49
Piperacillin/Tazo 3.375 Gram [Zosyn] 3.375 gram in 50 ml IV NOW
07/24/23 18:54
Acetaminophen 1000MG/100Ml [Ofirmev] 1,000 mg in 100 ml IV ONCE
Acetaminophen IV Indication:: No OH & No Enteral Access
07/24/23 19:01
Blood Culture Q30M
LIZ Source: Blood/Venous
Specimen Description:
Blood Culture Q30M
LIZ Source: Blood/Venous
Specimen Description:
07/24/23 19:17
ColoRectal Surgery Consult Urgent
Consulting Provider: Gregory Wilson
Was physician already notified: Yes
07/24/23 19:32
Potassium Chloride [KCl] 20 meq 0.9% Sodium Chloride 250 ml [Nss] 250 ml IV NOW
07/24/23 19:43
Admit/Transfer Patient As Directed
Co-Sign Provider:
Level of Care: Inpatient admission
Assign to:: Medical/Surgical
Physician / Group: [email or web address]
Diagnosis: Post op intrabdominal abdominal RLQ fluid collections; presumed abscess
Reason for Hospitalization: Post op intrabdominal abdominal RLQ fluid collections; presumed abscess
Expected length of stay greater than two midnights?: Yes
ELOS- Estimated Length of Stay in days: 5
I certify the patient meets the requirements for IP care: Yes
07/24/23 19:45
Code Status As Directed
Resuscitation Status: Full Code
07/24/23 20:05
Lorazepam [Ativan] 1 mg PO HSPRN PRN
07/24/23 21:18
0.9% Sodium Chloride 1000 ml [Nss] 1,000 ml IV 60 mls/hr
Metoprolol [Lopressor] 5 mg IV Q4HPRN PRN
07/24/23 21:18
Activity As Directed
Activity Level: With Assistance
Intake/ Output As Directed
Frequency: Per unit guidelines
Pneumatic Compression Sleeves As Directed
Type: Knee high
Vital Signs As Directed
Frequency: Per unit guidelines
Weight As Directed
Frequency: Daily
DX Deep Vein Thrombosis Video Routine
07/24/23 22:00
Nystatin Suspension [Mycostatin Oral Suspension] 5 ml PO QID
Pyridostigmine [Mestinon] 60 mg PO TID
07/25/23 00:00
Piperacillin/Tazo 3.375 Gram [Zosyn] 3.375 gram in 50 ml IV Q6H
07/25/23 Breakfast
NPO
Allow oral meds: Yes
Allow clear liquids: Sips of Clears
NPO with Ice Chips: Yes
Complete Blood Count/With Diff IN AM
Comprehensive Metabolic Panel IN AM
07/25/23 07:00
Pantoprazole [Protonix] 40 mg PO BID@0700,1600
07/25/23 08:00
Citalopram [Celexa] 10 mg PO DAILY
Fluconazole [Diflucan] 100 mg PO DAILY
Potassium Chloride [KCl] 20 meq PO DAILY
Prednisone [Deltasone] 10 mg PO DAILY
Abnormal Lab Results
07/24/23 07/24/23
15:37 16:17
WBC 14.3 H 10^3/uL
(4.8-10.8)
RBC 2.94 L 10^6/uL
(4.70-6.10)
Hgb 9.8 L g/dL
(13.0-18.0)
Hct 28.8 L %
(39.0-52.0)
MCV 98.0 H fL
(80.0-94.0)
MCH 33.3 H pg
(27.0-31.0)
Abs Immat Gran (auto) 0.1 H 10^3/uL
(0-0.05)
Absolute Neuts (auto) 12.9 H 10^3/uL
(1.4-6.5)
Absolute Lymphs (auto) 0.8 L 10^3/uL
(1.2-3.4)
Immature Gran % 1.0 H %
(0-0.5)
Neutrophils % 89.9 H %
(42.2-75.2)
Lymphocytes % 5.2 L %
(20.5-51.1)
Sodium 129 L mmol/L
(135-145)
Potassium 3.4 L mmol/L
(3.5-5.1)
Chloride 96 L mmol/L
(98-107)
Creatinine 0.4 L mg/dL
(0.7-1.3)
Glucose 108 H mg/dl
(70-99)
Magnesium 1.0 L mg/dl
(1.6-2.3)
Total Protein 6.2 L g/dl
(6.3-8.2)
Albumin 3.1 L g/dl
(3.5-5.0)
Urine Sodium 124 H mmol/L
(30-90)
07/24/23 16:17
07/24/23 16:17
Vital Signs
Initial and Last Documented VS:
Initial Vital Signs
Temp Pulse Resp BP Pulse Ox
98.8 F 90 16 127/72 97
07/24/23 14:15 07/24/23 14:15 07/24/23 14:15 07/24/23 14:15 07/24/23 14:15
Last Documented Vital Signs
Temp Pulse Resp BP Pulse Ox
97.7 F 78 20 134/75 97
07/24/23 21:25 07/24/23 21:25 07/24/23 21:25 07/24/23 21:25 07/24/23 21:25
*Radiology
Radiology exam reviewed: radiology read reviewed
*Pulse Oximetry
Patient hypoxic: no
*Critical Care Note
Total Time (30-74mins, 75-104mins- exclusive of procedures): Not Applicable
Update Note
Update Note:
Ct report with post-operative fluic collection suspicous for devloping abscess. Dr. Wilson notified of report. Patient will be admitted to hospitalist. Elicia started in department.
ED Attending Note
-
Portions of this chart may have been created with voice recognition software.� Occasional wrong word or��sound alike� substitutions may have occurred due to the inherent limitations of voice recognition software.
Discharge Plan
Departure
Patient Disposition: Admit
Date of Disposition: 07/24/23
Time of Disposition: 18:55
Presentation/result/management discussed w/ accepting MD/DO: Hospitalist
Condition: Fair
Covid-19: Not Applicable
Discharge Problem:
Abdominal abscess
Interventions
Interventions:
*Risk Screen - Suicide Last Done: 07/24/23 18:11
*General Assessment Last Done: 07/24/23 15:01
*Neglect/Abuse Screening Last Done: 07/24/23 18:11
ED- Fall Risk Assessment Last Done: 07/24/23 15:30
*ED COVID-19 Vaccine History Last Done: 07/24/23 15:01
*Nursing Disposition Last Done: 07/24/23 21:16
ED-Skin Assessment Last Done: 07/24/23 15:29
Discharge Date and Time
Discharge Date/Time: 07/24/23 21:17
[2023-07-24] MEDS: OMNIPAQUE 50 ML PO (15:12)
[2023-07-24 15:47] LABS: Urine Albumin Negative (Neg - Trace); Urine Bilirubin Negative (Negative); Urine Character Clear (Clear); Urine Color Yellow; Urine Glucose Negative (Negative); Urine Ketone Negative (Negative); Urine Leukocyte Negative (Negative); Urine Nitrite Negative (Negative); Urine Occult Blood Negative (Negative); Urine Urobilinogen Negative (Neg - 1+)
[2023-07-24 16:32] LABS: % Basophils 0.2 % (0-2); % Lymphocytes 5.2 % (20.5-51.1); % Monocytes 3.7 % (1.7-9.3); % Neutrophils 89.9 % (42.2-75.2); Absolute Immature Granulocytes 0.1 10^3/uL (0-0.05); Absolute Lymphocytes 0.8 10^3/uL (1.2-3.4); Absolute Monocytes 0.5 10^3/uL (0.1-0.6); Absolute Neutrophils 12.9 10^3/uL (1.4-6.5); Hematocrit 28.8 % (39.0-52.0); Hemoglobin 9.8 g/dL (13.0-18.0); Mean Corpuscular Hgb 33.3 pg (27.0-31.0); Mean Platelet Volume 9.4 fL (7.4-10.4); Nucleated Red Blood Cells % 0 % (-); Platelet Count 313 10^3/uL (130-400); Red Blood Cell Count 2.94 10^6/uL (4.70-6.10); Red Cell Dist. Width 14.3 % (11.5-14.5); White Blood Cell Count 14.3 10^3/uL (4.8-10.8)
[2023-07-24 16:41] LABS: Lactic Acid 0.8 mmol/L (0.7-2.0)
[2023-07-24 16:43] LABS: ALT (SGPT) 21 U/L (0-50); AST (SGOT) 38 U/L (17-59); Albumin 3.1 g/dl (3.5-5.0); Alkaline Phosphatase 61 U/L (38-126); Blood Urea Nitrogen 10 mg/dl (9-20); Calcium 8.9 mg/dl (8.4-10.2); Carbon Dioxide 29 mmol/L (22-30); Chloride 96 mmol/L (98-107); Glucose 108 mg/dl (70-99); Potassium 3.4 mmol/L (3.5-5.1); Sodium 129 mmol/L (135-145); Total Bilirubin 0.8 mg/dl (0.2-1.3); Total Protein 6.2 g/dl (6.3-8.2); eGFR > 60.00
[2023-07-24] MEDS: NSS 1000 IV ×2 (17:57→21:50)
[2023-07-24 18:11] VITALS: BP 129/79
[2023-07-24 18:59] VITALS: BMI 28.4
[2023-07-24] MEDS: OFIRMEV 100 IV (19:04)
[2023-07-24] MEDS: ZOSYN 50 IV ×2 (19:25→23:16)
--- NOTE | 2023-07-24 19:35 | HPS.HSE ---
Addendum entered and electronically signed by Jann Villeda MD 07/24/23 20:03:
Correction
Chronic lower extremity edema HX - but not edematous now
- Hold Lasix
Original Note:
Family Physician
-
Family Physician: Todd Gamboa
Chief Complaint
-
drainage and leakage for new colostomy site
History of Present Illness
67M POD10 s/p sigmoid resection, end colostomy for perforated diverticulitis, DC'd on 07/20 Per family , increased discharge since Thursday. Reports PM colostomy leaked and wound became contaminated with stool last evening. He was followed up with
OP CRS DR Anant wood to ER for further evalaution.
Currently undergoing chemo for stage IV lung CA with liver mets.
No fever/chills. Poor appetite
Being treated for thrush at this time.
Denies any pain, n/v.
Medical History
Past Medical History
Past Medical History: Reports Other
Additional Past Medical History:
Cancer (Lung cancer metastatic)
GERD
HTN
Myasthenia gravis on immune suppression was CellCept
Pancoast tumor)
diverticulitis
Past Surgical History: Reports Other
Additional Past Surgical History:
Appendectomy
Bowel resection (colostomy sigmoidectomy last week.)
Tonsillectomy
Vasectomy
Ortho
Social History
Tobacco: Former Smoker
Alcohol: Occasional
Drug: None
Personal:
Living: With Family
Family History
Family History: Not pertinent
Allergies / Home Medications
Allergies reflects when Allergies were last updated in [employer].
Home Medications with original date entered in [employer]
Allergy/Medication List:
Allergies
Allergy/AdvReac Type Severity Reaction Status Date / Time
No Known Allergies Allergy Verified 07/13/23 11:58
Home Medications
fluticasone propionate 50 mcg/actuation nasal spray,suspension 2 spray intranasal DAILY Congestion 04/13/20
furosemide 20 mg tablet 20 mg PO BID Fluid retention/Swelling 05/01/20
folic acid 1 mg tablet 1 mg PO DAILY Supplement 02/02/23
guaifenesin 1,200 mg tablet, extended release 12 hr (Mucinex) 1,200 mg PO QPM Cough 02/02/23
guaifenesin 600 mg tablet, extended release 12 hr (Mucus Relief ER) 600 mg PO DAILY Cough 02/02/23
saw palmetto 450 mg capsule 450 mg PO DAILY Supplement 02/02/23
therapeutic multivitamin 1 tab PO DAILY Supplement 02/02/23
omega 1-xqe-upd-fish oil 1,200 mg (144 mg-216 mg) capsule (Fish Oil) 1 cap PO DAILY Supplement 03/03/23
docusate sodium 100 mg capsule 100 mg PO BID STOOL SOFTENER 03/06/23
citalopram 10 mg tablet 10 mg PO DAILY Mental Health/Anxiety 07/13/23
fenofibrate 160 mg tablet 160 mg PO DAILY HIGH TRIGLYCERIDES 07/13/23
lidocaine-prilocaine 2.5 %-2.5 % topical cream 1 applic topical DAILY PRN prior to port access 07/13/23
mycophenolate mofetil 500 mg tablet 1,000 mg PO BID Transplant 07/13/23
ondansetron HCl 8 mg tablet 8 mg PO Q8H PRN nausea/vomiting 07/13/23
potassium chloride 20 mEq tablet,extended release 20 meq PO DAILY Supplement 07/13/23
prochlorperazine maleate 10 mg tablet 10 mg PO Q6H PRN nausea 07/13/23
atorvastatin 40 mg tablet 40 mg PO DAILY@2000 High Cholesterol 07/14/23
pantoprazole 40 mg tablet,delayed release 40 mg PO BID@0700,1600 GERD 07/14/23
acetaminophen 500 mg tablet (Tylenol Extra Strength) 1,000 mg (2 x 500 mg) PO Q8H PRN mild/mod to severe pain 5 days #20 tabs 07/21/23
amoxicillin 875 mg-potassium clavulanate 125 mg tablet 1 tab PO Q12 6 days #12 tabs 07/21/23
apixaban 2.5 mg tablet (Eliquis) 2.5 mg PO BID 30 days #60 tabs 07/21/23
fluconazole 100 mg tablet 100 mg PO DAILY 6 days #6 tabs 07/21/23
metoprolol succinate 25 mg tablet,extended release 24 hr 25 mg PO BID 30 days #60 tabs 07/21/23
nystatin 100,000 unit/mL oral suspension 5 ml PO QID 3 days #60 mL 07/21/23
prednisone 10 mg tablet 10 mg PO DAILY 3 days #3 tabs 07/21/23
pyridostigmine bromide 60 mg tablet 60 mg PO TID 30 days #90 tabs 07/21/23
Review of Systems
-
Constitutional: Reports No Symptoms
EENT: Reports No Symptoms
Respiratory: Reports No Symptoms
Cardiac: Reports No Symptoms
Abdomen/GI: Reports See HPI
: Reports No Symptoms
Musculoskeletal: Reports No Symptoms
Skin: Reports No Symptoms
Neurological: Reports No Symptoms
Endocrine: Reports No Symptoms
Hematologic/Lymphatic: Reports No Symptoms
Psych: Reports No Symptoms
Physical Exam
Vital Signs
Vital Signs
Temp Pulse Resp BP Pulse Ox
98.8 F 84 18 129/79 96
07/24/23 14:15 07/24/23 18:11 07/24/23 18:11 07/24/23 18:11 07/24/23 18:11
Physical Exam
General: No Apparent Distress (not toxic looking )
HEENT: NormoCephalic, Anicteric, Atraumatic, Nose Appears Normal and Other (Very [place] without hearing AID )
Respiratory: Clear; No Wheezes, Rales or Rhonchi
Cardiac: S1/S2 and Regular Rhythm; No JVD
Breast: Deferred by me
GI: Soft, Non Tender, Ostomy (colostomy ) and Other (vertical abdominal incision, distal portion opened and packed [employer]ER [employer]FT )
Rectal: Deferred by Provider
Genito-urinary: Deferred by me
Musculoskeletal: No Cyanosis and No Edema
Skin: Warm and Dry
Neuro: Awake, Alert, AO x 3, No Motor Deficits, Cranial Nerves Intact (impaired hearing ) and Other
Psych: Calm
Laboratory Results
-
07/24/23 16:17
07/24/23 16:17
Laboratory Results
Lactic Acid 0.8 mmol/L (0.7-2.0) 07/24/23 16:17
Total Bilirubin 0.8 mg/dl (0.2-1.3) 07/24/23 16:17
AST 38 U/L (17-59) 07/24/23 16:17
ALT 21 U/L (0-50) 07/24/23 16:17
Alkaline Phosphatase 61 U/L (38-126) 07/24/23 16:17
Data Reviewed
-
CT Scan: Report Reviewed by me
Lab Data: Labs Reviewed by me
Old Records: Reviewed
Impression/Plan
-
Reviewed VS: afebrile HR 84 BP 130/80
Data
WCC 14s
Hgb 9.8 - was 8.3 0mn 07/21/23
nl Plt
Na 129 -was 134 on 07/20
K 3.4
Cl 96
nl Cr nl e GFR
Alb 3.1
BCx sent
07/24/23 CT Abd/pel W Iv And Oral Contr
1. Interval sigmoidectomy and left lower quadrant colostomy.
2. Loculated postoperative fluid collections in the right lower quadrant measuring 5.7 x 3.5 cm and right posterior pelvis measuring 5.3 x 3.5 cm suspicious for developing abscesses.
3. Multiple segments of small bowel wall thickening concerning for infection or inflammation.
4. Mild abdominopelvic ascites.
5. Hepatic metastases.
Last hospitalist admission: 07/12- 07/20
DC Dxs: TME, s/p sigmoid resection, end colostomy for Diverticulitis with perforation (07/12)
ASSESSMENT & PLAN
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
Very [place] without hearing AID
Post op intraabdominal abdominal RLQ fluid collections; presumed abscess - currently on PO Augmentin
s/p sigmoidectomy and colostomy last week by Dr. Ny (Sent in by Dr. Melvin)
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
HX TME on last admission associated with sepsis
- Hold eliquis
- Empiric IV Zosyn
- NPO after MN
- f/y T, WCC and BCx
- Observe mental status
- ID consult
- CRS consulted
Acute on chr hyponatremia
Suspect poor POs
- Check Ur Na, Ur Osm, Sr Osm
- Gentle IVF and follow Na
Marginal Hypokalemia
HX Hypomagnesemia
HX Hypocalcemia and albuminemia
- Replaced MG and K as needed
HX metastatic lung cancer on chemotherapy (Taxotere, Cyramza)
- Held Taxotere, Cyramza for now
- Primary oncologist Dr. Daniels - consult in AM
HX anemia - current Hgb 9.8 - was 8.3 0mn 07/21/23
Anemia of cancer/inflammation/anemia of chronic disease
- Transfuse blood if hemoglobin less than 8
Chr Insomnia HX
- on chr Ativan 1 mg HS
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
- Held SE[employer] Eliquis. for now
Essential hypertension
- cont IV metoprolol with holding parameters
Hyperlipidemia
- Hold statin, fenofibrate for now
GERD
- IV Protonix
HX Myasthenia gravis
He denies weakness, double vision
- Hold mycophenolate
- cont pyridostigmine , prednisone
Chronic lower extremity edema
- Hold Lasix for now.
BPH
Anxiety/depression
- on citalopram
DVT Px: SCD
Code: Full
IP MS
[2023-07-24] MEDS: KCL 260 MEQ IV (20:52)
[2023-07-24 21:25] VITALS: BP 134/75; BMI 28.3
--- NOTE | 2023-07-24 21:30 | PTCARENOTE ---
Received patient from ER. Stable vitals. AAOx3. colostomy draining liquid stool. Lower abdomen dressing (midline incision) looks CDI. c/o 4/10 abdominal pain, given morphine as ordered. POC reviewed with patient and family.
[2023-07-24 21:32] VITALS: BMI 28.3
[2023-07-24 21:46] LABS: Osmolality Serum 281 mOsm/kg (275-300)
[2023-07-24] MEDS: MORPHINE SULFATE 1 MG IV (21:48)
[2023-07-24 22:18] LABS: Osmolality Urine 594 mOsm/kg (300-900)
[2023-07-24 22:25] LABS: Urine Sodium 124 mmol/L (30-90)
[2023-07-24] MEDS: MESTINON 60 MG PO (23:00)
[2023-07-24] MEDS: MYCOSTATIN ORAL SUSPENSION 5 ML PO (23:00)
--- NOTE | 2023-07-25 00:46 | PTCARENOTE ---
Patient placed on tele as per protocol as patient has order for PRN IV Lopressor
[2023-07-25] MEDS: MORPHINE SULFATE 1 MG IV (01:24)
[2023-07-25 03:40] VITALS: BP 136/73
[2023-07-25 05:33] LABS: % Basophils 0.4 % (0-2); % Immature Granulocytes 1.1 % (0-0.5); % Lymphocytes 8.6 % (20.5-51.1); % Monocytes 5.7 % (1.7-9.3); % Neutrophils 84.2 % (42.2-75.2); Absolute Basophils 0.1 10^3/uL (0-0.2); Absolute Immature Granulocytes 0.1 10^3/uL (0-0.05); Absolute Lymphocytes 1.1 10^3/uL (1.2-3.4); Absolute Monocytes 0.7 10^3/uL (0.1-0.6); Absolute Neutrophils 10.7 10^3/uL (1.4-6.5); Hematocrit 26.8 % (39.0-52.0); Mean Corp Hgb Conc. 33.6 g/dL (33.0-37.0); Mean Corpuscular Hgb 33.1 pg (27.0-31.0); Mean Corpuscular Volume 98.5 fL (80.0-94.0); Mean Platelet Volume 9.4 fL (7.4-10.4); Nucleated Red Blood Cells % 0 % (-); Platelet Count 318 10^3/uL (130-400); Red Blood Cell Count 2.72 10^6/uL (4.70-6.10); Red Cell Dist. Width 14.1 % (11.5-14.5); White Blood Cell Count 12.7 10^3/uL (4.8-10.8)
[2023-07-25 05:52] LABS: ALT (SGPT) 19 U/L (0-50); AST (SGOT) 36 U/L (17-59); Alkaline Phosphatase 57 U/L (38-126); Blood Urea Nitrogen 9 mg/dl (9-20); Calcium 8.7 mg/dl (8.4-10.2); Carbon Dioxide 26 mmol/L (22-30); Chloride 98 mmol/L (98-107); Estimated Creatinine Clearance 118 ml/min; Glucose 70 mg/dl (70-99); Potassium 3.5 mmol/L (3.5-5.1); Sodium 129 mmol/L (135-145); Total Bilirubin 0.7 mg/dl (0.2-1.3); Total Protein 5.8 g/dl (6.3-8.2); eGFR > 60.00
[2023-07-25] MEDS: ZOSYN 50 IV ×4 (05:54→23:47)
[2023-07-25] MEDS: PROTONIX 40 MG PO (05:54)
[2023-07-25] MEDS: ROXICODONE 5 MG PO (06:40)
[2023-07-25 07:41] VITALS: BP 146/76
[2023-07-25] MEDS: MESTINON 60 MG PO ×2 (07:49→21:32)
[2023-07-25] MEDS: KCL 20 MEQ PO (07:49)
[2023-07-25] MEDS: DIFLUCAN 100 MG PO (07:50)
[2023-07-25] MEDS: CELEXA 10 MG PO (07:50)
[2023-07-25] MEDS: DELTASONE PO (07:54)
[2023-07-25] MEDS: MYCOSTATIN ORAL SUSPENSION 5 ML PO ×4 (08:02→21:31)
--- NOTE | 2023-07-25 08:04 | W.PN.HOSP.TC ---
Today's Communication/Plan
-
IV Zosyn.
Assessment / Plan
Assessment / Plan
Physical Exam
General: Acutely ill. Nontoxic
HEENT: NormoCephalic, Anicteric, Atraumatic, Nose Appears Normal and Other (Very [place] without hearing AID )
Respiratory: Clear; No Wheezes, Rales or Rhonchi
Cardiac: S1/S2 and Regular Rhythm; No JVD
Breast: Deferred by me
GI: Soft, Non Tender, Ostomy (colostomy ) and Other (vertical abdominal incision, distal portion opened and still packed)
Musculoskeletal: No Cyanosis and No Edema
Skin: Warm and Dry
Neuro: Awake, Alert, AO x 3, No Motor Deficits, Cranial Nerves Intact (impaired hearing ) and Other
Psych: Calm
A/P:
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 Infected wound.
s/p sigmoidectomy and colostomy last week by Dr. Ny (Sent in by Dr. Melvin)
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
HX TME on last admission associated with sepsis
- Cont to hold Eliquis
- Cont IV Zosyn
-Plan for IR drainage of abdominal collection on Thursday (due to Eliquis washout). Remains NPO until surgery clears him.
- f/y T, WCC and BCx
- ID consult appreciated
- CRS consulted and input appreciated
-Blood cultures no growth but pending
-WBC 14.3--> 12.7 today
-Discussed with family at bedside today on 07/24
Acute on chr hyponatremia
Suspect poor POs
- Check Ur Na, Ur Osm, Sr Osm--> urine sodium 124, urine osmolarity 594, serum osmolarity 281
- Gentle IVF and follow Na
-Today sodium 129
Oral candidiasis
-Continue p.o. fluconazole and oral nystatin
Marginal Hypokalemia
HX Hypomagnesemia
HX Hypocalcemia and albuminemia
- Replaced MG and K as needed--> today K 3.5 and mag not checked so we will recheck today
HX metastatic lung cancer on chemotherapy (Taxotere, Cyramza)
- Held Taxotere, Cyramza for now
- Primary oncologist Dr. Daniels - consulted (wrong consult name placed overnight in EMR pointed out by oncology thus re-entered this mornig with correct name and notified oncologist).
HX anemia - current Hgb 9.8 - was 8.3 0mn 07/21/23
Anemia of cancer/inflammation/anemia of chronic disease
- Transfuse blood if hemoglobin less than 8
-Today hemoglobin 9
Chr Insomnia HX
- on chr Ativan 1 mg HS
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
Essential hypertension
- cont IV metoprolol with holding parameters
Hyperlipidemia
- Hold statin, fenofibrate for now
GERD
- IV Protonix
HX Myasthenia gravis
He denies weakness, double vision
- Hold mycophenolate
- cont pyridostigmine , prednisone
Chronic lower extremity edema
- Hold Lasix for now.
BPH
Anxiety/depression
- on citalopram
DVT Px: SCD
Code: Full
Total time spent on today's encounter was 52 minutes which included time spent in counseling the patient/family regarding diagnosis and treatment plan as listed above, goals of care, and symptom management. Case was discussed with nursing staff,
specialists, and care coordinators/case management. All labs and imaging personally reviewed by me. Remainder the time spent in detailed review of previous records, lab data, imaging, and other medical provider documentation.
Anticipated Discharge: > 48 hours
Subjective/Interval History
-
Date of Service: July 25, 2023
Patient denies abdominal pain today. No nausea or vomiting. Remains afebrile. No chest pain or shortness of breath.
Objective Data
-
Labs:
Laboratory Results
07/25/23
04:55
WBC 12.7 H
Hgb 9.0 L
Hct 26.8 L
Plt Count 318
Sodium 129 L
Potassium 3.5
Chloride 98
Carbon Dioxide 26
BUN 9
Creatinine 0.5 L
Glucose 70
Calcium 8.7
Total Bilirubin 0.7
AST 36
ALT 19
Alkaline Phosphatase 57
Vital Signs:
Vital Signs
Temp Pulse Resp BP Pulse Ox
97.9 F 88 16 146/76 98
07/25/23 07:41 07/25/23 07:41 07/25/23 07:41 07/25/23 07:41 07/25/23 07:41
I&O
07/24/23 07/25/23 07/26/23
06:59 06:59 06:59
Intake Total 460 / 460
Output Total 1000 / 1000
Balance -540 / -540
Review of Systems
-
All other systems: Reviewed and negative
--- NOTE | 2023-07-25 11:10 | CON.ID ---
Consultation
-
Date/Time Consultation Requested: 07/24/2023 2230
Date/Time Consultation Performed: 07/25/2023 1106
Requesting Provider: Dr. Villeda
Performing Provider: Dr. Ward
Reason for Consultation: Stoma infection
Chief Complaint / Past History
History of Present Illness
Kole Naranjo is a 67-year-old man being evaluated at the request of Dr. Villeda regarding suspected stoma infection. History is obtained from chart review, along with patient interview.
The patient has a significant past medical history of stage IV lung cancer, with mets to the liver who recently began chemotherapy. Patient recently was an inpatient at [facility] secondary to a perforated viscus, and underwent
sigmoidectomy and colostomy placement on 07/13/2023. He was discharged to home on 07/21/2023 on Augmentin for treatment of recovered organisms (E. coli, Enterococcus).
According to reviewed notes he called the surgeon's office yesterday with concerns of erythema around the incision with reported purulence. He was evaluated in the office and purulent drainage was noted and he was sent to the emergency room for
further evaluation. Workup in the emergency room revealed leukocytosis. CT imaging has been performed, with the finding of loculated postoperative fluid collections concerning for possible abscess.
Past History
Additional Past Medical History:
Lung CA with liver mets on Taxotere, Cyramza, steroid
hx SVC syndrome
BPH
GERD
Hypertension
Myasthenia gravis, on Cellcept
Diverticulitis
Chronic LE edema
CLAUDIO
Hard of hearing
Additional Past Surgical History:
Sigmoid resection with ostomy placement (07/13/2023)
Port placement (02/2023)
Appendectomy
Vasectomy
Left shoulder replacement
Allergy History:
No Known Allergies Allergy (Verified 07/13/23 11:58)
Medications Reviewed: Yes
Current Antibiotics:
Zosyn 3.375 g IV every 6 hours
Diflucan 100 mg p.o. every 24 hours
Social History
Tobacco: Former Smoker
Alcohol: Occasional
Drug: None
Personal:
Living: With Family
Review of Systems
Vital Signs
Temp Pulse Resp BP Pulse Ox
97.9 F 88 16 146/76 98
07/25/23 07:41 07/25/23 07:41 07/25/23 07:41 07/25/23 07:41 07/25/23 07:41
Physical Exam
Physical Exam
Constitutional: No Acute Distress, Comfortable and Non-toxic
Eyes: Pupils Equal, Pupils Round, No Conjunctival Hemorrhage and Sclera Anicteric
Oral: No Thrush and Ulcers (Oropharynx)
Cardiovascular: S1/S2; Negative S3/S4 or Murmur
Pulmonary: Coarse and Non Labored; Negative Wheezes or Rales
Gastrointestinal: Soft, Tender, Non Distended and Normal Bowel Sounds
Genito-Urinary: Negative Silva
Extremities: Negative Edema, Cyanosis or Erythema
Lab / Diagnostic Study Results
07/25/23 04:55
07/25/23 04:55
Abs Immat Gran (auto) 0.1 10^3/uL (0-0.05) H 07/25/23 04:55
Absolute Neuts (auto) 10.7 10^3/uL (1.4-6.5) H 07/25/23 04:55
Absolute Lymphs (auto) 1.1 10^3/uL (1.2-3.4) L 07/25/23 04:55
Absolute Monos (auto) 0.7 10^3/uL (0.1-0.6) H 07/25/23 04:55
Absolute Basos (auto) 0.1 10^3/uL (0-0.2) 07/25/23 04:55
Immature Gran % 1.1 % (0-0.5) H 07/25/23 04:55
Neutrophils % 84.2 % (42.2-75.2) H 07/25/23 04:55
Lymphocytes % 8.6 % (20.5-51.1) L 07/25/23 04:55
Monocytes % 5.7 % (1.7-9.3) 07/25/23 04:55
Eosinophils % 0.0 % (0-6) 07/25/23 04:55
Basophils % 0.4 % (0-2) 07/25/23 04:55
Lactic Acid Cancelled 07/24/23 21:18
Microbiology Results
Micro:
07/24/23 19:01 Blood Culture - Pending
Blood/Venous
07/24/23 19:01 Blood Culture - Pending
Blood/Venous
Imaging:
07/24/2023 CT abdomen/pelvis with contrast: There has been interval sigmoidectomy and left lower quadrant colostomy placement. There is loculated postoperative fluid collections in the right lower quadrant and right posterior pelvis measuring 5.7 x
3.5 cm and 5.3 x 3.5 cm respectively. These are suspicious for developing abscesses. Hepatic metastases are also noted. Please see full dictation for additional detail.
Assessment / Plan
Leukocytosis
Suspected wound infection
Abdominal collections; suspected developing abscesses
Lung CA with liver mets on Taxotere, Cyramza, steroid
hx SVC syndrome
BPH
GERD
Hypertension
Myasthenia gravis, on Cellcept
Diverticulitis
Chronic LE edema
CLAUDIO
Hard of hearing
Recommendations:
Continue with empiric Zosyn for the present.
Await possible IR aspiration of collections. Would send for aerobic and anaerobic culture.
Monitor white count and temperature curve. Local care to the abdominal wound.
[2023-07-25 11:46] VITALS: BP 140/79
[2023-07-25] MEDS: FIRST-MOUTHWASH BLM SUSPENSION 5 ML PO ×2 (12:41→15:50)
--- NOTE | 2023-07-25 12:43 | W.PN.UPDATE ---
Update Note
Progress Note Update
- IR consulted for drainage of fluid collections seen on CT from 07/24/23. 3.5 x 5.6 cm collection in the right lower quadrant and 3.4 x 5.2 cm collection in the right pelvis. Both collections are not thick walled with questionable/minimal rim
enhancement. No locules of gas within them. These could be post operative collections/seromas with abscesses also a consideration.
- Pt has been taking Eliquis as recently as yesterday. 2 day washout recommended given elevated bleeding risk so we can plan on aspiration/drainage on Thursday
- The right pelvic collection will require placing patient prone - ask for surgical input whether this is advisable given his midline wound.
--- NOTE | 2023-07-25 13:37 | CON.ONC ---
Impression
Impression
abdominal abscesses s/p emergent bowel resection 07/13/23 for perforated diverticulitis
stage IV lung cancer, on taxotere/Cyramza, last 07/10/23
myasthenia gravis
DVT of right IJ, SVC, on Eliquis
Plan
Plan
Mgmt of abscesses/infection per primary team and CRS
Antibiotics, abscess drainage in IR after Eliquis washout
Further mgmt of lung cancer TBD, systemic therapy on hold pending recovery from infection and surgery
Will follow along peripherally
Patient History
History of Present Illness
This is a 67yo M, well known to me for treatment of stage IV lung cancer, who is admitted with abdominal abscesses and parastomal infection s/p bowel resection 07/13/23 for perforated diverticulitis. He'd been discharged around 07/21/23, but noted
increasing abd pain and drainage, for which he was evaluated by CRS and sent to the ER for imaging and admission.
He's on Eliquis for clot in the SVC and right IJ at diagnosis.
He rec'd cycle #1 of Taxotere/Cyramza on 07/10/23 after disease progression on carboplatin and alimta.
Past-Medical/Surgical History
PMH/SH - as per the HPI, myasthenia gravis, [employer], CLAUDIO, Mancuso's, hiatal hernia, diverticulitis, CVA, orthopedic surgery, appendectomy
SH - former smoker, quit 1994, , social etoh
FH - prostate, lung and breast cancer
Patient Medication
�Medication �Instructions �Recorded �Confirmed �Last Taken �Type
fluticasone propionate 50 2 spray intranasal DAILY Congestion 04/13/20 07/24/23 07/24/23 History
mcg/actuation nasal
spray,suspension
furosemide 20 mg tablet 20 mg PO BID Fluid 05/01/20 07/24/23 07/24/23 History
retention/Swelling
folic acid 1 mg tablet 1 mg PO DAILY Supplement 02/02/23 07/24/23 07/24/23 History
guaifenesin 1,200 mg tablet, 1,200 mg PO QPM Cough 02/02/23 07/24/23 07/23/23 History
extended release 12 hr (Mucinex)
guaifenesin 600 mg tablet, 600 mg PO DAILY Cough 02/02/23 07/24/23 07/24/23 History
extended release 12 hr (Mucus
Relief ER)
saw palmetto 450 mg capsule 450 mg PO DAILY Supplement 02/02/23 07/24/23 07/24/23 History
therapeutic multivitamin 1 tab PO DAILY Supplement 02/02/23 07/24/23 07/24/23 History
omega 8-hws-ant-fish oil 1,200 mg 1 cap PO DAILY Supplement 03/03/23 07/24/23 07/24/23 History
(144 mg-216 mg) capsule (Fish Oil)
docusate sodium 100 mg capsule 100 mg PO BID STOOL SOFTENER 03/06/23 07/24/23 07/24/23 History
citalopram 10 mg tablet 10 mg PO DAILY Mental 07/13/23 07/24/23 07/24/23 History
Health/Anxiety
fenofibrate 160 mg tablet 160 mg PO DAILY HIGH TRIGLYCERIDES 07/13/23 07/24/23 07/24/23 History
lidocaine-prilocaine 2.5 %-2.5 % 1 applic topical DAILY PRN prior 07/13/23 07/24/23 Unknown History
topical cream to port access
mycophenolate mofetil 500 mg tablet 1,000 mg PO BID Transplant 07/13/23 07/24/23 07/24/23 History
ondansetron HCl 8 mg tablet 8 mg PO Q8H PRN nausea/vomiting 07/13/23 07/24/23 Unknown History
potassium chloride 20 mEq 20 meq PO DAILY Supplement 07/13/23 07/24/23 07/24/23 History
tablet,extended release
prochlorperazine maleate 10 mg 10 mg PO Q6H PRN nausea 07/13/23 07/24/23 Unknown History
tablet
atorvastatin 40 mg tablet 40 mg PO DAILY@2000 High 07/14/23 07/24/23 07/23/23 History
Cholesterol
pantoprazole 40 mg tablet,delayed 40 mg PO BID@0700,1600 GERD 07/14/23 07/24/23 07/24/23 History
release
acetaminophen 500 mg tablet 1,000 mg (2 x 500 mg) PO Q8H PRN 07/21/23 07/24/23 Unknown Rx
(Tylenol Extra Strength) mild/mod to severe pain 5 days #20
tabs
amoxicillin 875 mg-potassium 1 tab PO Q12 6 days #12 tabs 07/21/23 07/24/23 07/24/23 Rx
clavulanate 125 mg tablet
apixaban 2.5 mg tablet (Eliquis) 2.5 mg PO BID 30 days #60 tabs 07/21/23 07/24/23 07/24/23 Rx
fluconazole 100 mg tablet 100 mg PO DAILY 6 days #6 tabs 07/21/23 07/24/23 07/24/23 Rx
metoprolol succinate 25 mg 25 mg PO BID 30 days #60 tabs 07/21/23 07/24/23 07/24/23 Rx
tablet,extended release 24 hr
nystatin 100,000 unit/mL oral 5 ml PO QID 3 days #60 mL 07/21/23 07/24/23 07/24/23 Rx
suspension
prednisone 10 mg tablet 10 mg PO DAILY 3 days #3 tabs 07/21/23 07/24/23 07/24/23 Rx
pyridostigmine bromide 60 mg tablet 60 mg PO TID 30 days #90 tabs 07/21/23 07/24/23 07/24/23 Rx
Active Medications
Generic Name Dose Route Start Last Admin
Trade Name Freq PRN Reason Stop Dose Admin
Citalopram Hydrobromide 10 mg 07/25/23 08:00 07/25/23 07:50
Citalopram 10 Mg Tablet PO 08/22/23 07:59 10 mg
DAILY NISSA Administration
Fluconazole 100 mg 07/25/23 08:00 07/25/23 07:50
Fluconazole 100 Mg Tablet PO 08/04/23 07:59 100 mg
DAILY NISSA Administration
Heparin Sodium (Porcine) 500 unit 07/25/23 08:30
Heparin Flush Pf (100 Unit/Ml) 5 Ml Syringe IV 08/22/23 08:29
PRN PRN
SUBCUTANEOUS PORT FLUSH
Piperacillin Sod/Tazobactam Sod 3.375 gram in 50 mls @ 100 mls/hr 07/25/23 00:00 07/25/23 12:40
Zosyn IV 50 mls
Q6H NISSA Administration
Sodium Chloride 1,000 mls @ 60 mls/hr 07/24/23 21:18 07/24/23 21:50
Nss IV 1,000 mls
[id number] NISSA Administration
Lidocaine/Diphenhydr/Alum/Mg/Simeth 5 ml 07/25/23 08:14 07/25/23 12:41
Magic Mouthwash 5 Ml Cup (Mag&Al/Sim/Diphenhyd/Lidocaine) PO 08/22/23 08:13 5 ml
QIDPRN PRN Administration
mouth soreness
Lorazepam 1 mg 07/24/23 20:05
Lorazepam 1 Mg Tablet PO 08/21/23 20:04
HSPRN PRN
for insomnia
Metoprolol Tartrate 5 mg 07/24/23 21:18
Metoprolol 5 Mg/5 Ml Vial IV 08/21/23 21:17
Q4HPRN PRN
HR > 120. SBP > 165
Nystatin 5 ml 07/24/23 22:00 07/25/23 12:39
Nystatin Oral Suspension 500,000 Units/5 Ml PO 08/21/23 21:59 5 ml
QID NISSA Administration
Pantoprazole Sodium 40 mg 07/25/23 07:00 07/25/23 05:54
Pantoprazole 40 Mg Delayed Release Tablet PO 08/22/23 06:59 40 mg
BID@0700,1600 NISSA Administration
Potassium Chloride 20 meq 07/25/23 08:00 07/25/23 07:49
Potassium Chloride 20 Meq Extended Release Tablet PO 08/22/23 07:59 20 meq
DAILY NISSA Administration
Prednisone 10 mg 07/25/23 08:00 07/25/23 07:54
Prednisone 10 Mg Tablet PO 08/22/23 07:59 Not Given
DAILY NISSA
Pyridostigmine [place] 60 mg 07/24/23 22:00 07/25/23 07:49
Pyridostigmine 60 Mg Tablet PO 08/21/23 21:59 60 mg
TID NISSA Administration
Sodium Chloride 0 flush 07/24/23 22:00
Sodium Chloride 0.9% (Flush) Syringe IV 08/21/23 21:59
PER PROTOCOL NISSA
Review of Systems
-
History Source: Patient and Records
All Other Systems: Not reviewed unless documented
Physical Exam
-
General: No Apparent Distress
HEENT: Negative Jaundice
Extremities: No C/C/E
Psych: Calm
Labs
Lab Results
WBC 12.7 10^3/uL (4.8-10.8) H 07/25/23 04:55
RBC 2.72 10^6/uL (4.70-6.10) L 07/25/23 04:55
Hgb 9.0 g/dL (13.0-18.0) L 07/25/23 04:55
Hct 26.8 % (39.0-52.0) L 07/25/23 04:55
MCV 98.5 fL (80.0-94.0) H 07/25/23 04:55
MCH 33.1 pg (27.0-31.0) H 07/25/23 04:55
MCHC 33.6 g/dL (33.0-37.0) 07/25/23 04:55
RDW 14.1 % (11.5-14.5) 07/25/23 04:55
Plt Count 318 10^3/uL (130-400) 07/25/23 04:55
MPV 9.4 fL (7.4-10.4) 07/25/23 04:55
Abs Immat Gran (auto) 0.1 10^3/uL (0-0.05) H 07/25/23 04:55
Absolute Neuts (auto) 10.7 10^3/uL (1.4-6.5) H 07/25/23 04:55
Absolute Lymphs (auto) 1.1 10^3/uL (1.2-3.4) L 07/25/23 04:55
Absolute Monos (auto) 0.7 10^3/uL (0.1-0.6) H 07/25/23 04:55
Absolute Eos (auto) 0.0 10^3/uL (0-0.7) 07/25/23 04:55
Absolute Basos (auto) 0.1 10^3/uL (0-0.2) 07/25/23 04:55
Immature Gran % 1.1 % (0-0.5) H 07/25/23 04:55
Neutrophils % 84.2 % (42.2-75.2) H 07/25/23 04:55
Lymphocytes % 8.6 % (20.5-51.1) L 07/25/23 04:55
Monocytes % 5.7 % (1.7-9.3) 07/25/23 04:55
Eosinophils % 0.0 % (0-6) 07/25/23 04:55
Basophils % 0.4 % (0-2) 07/25/23 04:55
Creatinine 0.5 mg/dL (0.7-1.3) L 07/25/23 04:55
Vital Signs
Vital Signs
Temp Pulse Resp BP Pulse Ox
98 F 86 17 140/79 96
07/25/23 11:46 07/25/23 11:46 07/25/23 11:46 07/25/23 11:46 07/25/23 11:46
--- NOTE | 2023-07-25 14:35 | W.PN.CRS1 ---
Addendum entered and electronically signed by Gregory Wilson MD 07/25/23 15:04:
I saw and examined the patient.
The Community Services Manager's note was reviewed and I agree with the note.
Comment: No complaints, pain controlled, inferior midline wound is draining purulent fluid, stoma PPV with stool in the bag. OK for diet for now, plan for IR drain Thursday after eliquis washout. IV abx. Thrush POA, cont antifungal, BID dry gauze
packing for the wound for now
Original Note:
Today's Communication / Plan
-
Soft diet
IR drainage of intraabdominal abscesses after Eliquis washout
Assessment/Plan
-
67 yo male with a h/o DVT/PE on Eliquis, stage 4 lung ca on on taxotere/Cyramza, last 07/10/23 who initially presented with perforation of bowel secondary to complicated diverticulitis on 07/13/23 with Smith's procedure preformed emergently. He was
able to be discharged on 07/20 to continue his recovery at home as he was showing improvement. He presents this admission with increasing drainage from the base of the incision. Leukocytosis noted. CT imaging was done with loculated postoperative
fluid collections in the right lower quadrant measuring 5.7 x 3.5 cm and right posterior pelvis measuring 5.3 x 3.5 cm suspicious for developing abscesses.
AFVSS
Leukocytosis present but trending down
--IR consulted for drainage of abscesses, will likely take place on Thursday given timing of last Eliquis dosage. Ok for patient to be prone for drainage insertion.
--Hold Eliquis for IR intervention, Ok for heparin gtt if needed
--Continue nystatin for thrush, will place on soft diet until improved
--Follow labs
--ABX as per ID
--Local wound care with dry gauze packing, change daily and prn (changed at bedside)
Subjective Data
Subjective Data
Date of Service: July 25, 2023
Patient seen and examined with family at bedside, questions addressed. Denies n/v. Reports he has been having difficulty eating d/t thrush.
Objective Data
-
Vital Signs
Temp Pulse Resp BP Pulse Ox
98 F 86 17 140/79 96
07/25/23 11:46 07/25/23 11:46 07/25/23 11:46 07/25/23 11:46 07/25/23 11:46
Intake & Output
07/24/23 07/25/23 07/26/23
06:59 06:59 06:59
Intake Total 460 / 460
Output Total 1000 / 1000
Balance -540 / -540
Intake:
IV fluids (Total) 360 / 360
IV piggybacks 100 / 100
Output:
Liquid stool amount 200 / 200
Colostomy 200 / 200
Urine, Voided 800 / 800
Lab Results
07/25/23 04:55
07/25/23 04:55
Physical Exam
-
General: No Acute Distress
HEENT: Grossly Normal
Abdomen: Soft, Non Distended and Non Tender
Incision: No Skin Erythema and Other (Fascial dehiscence at base of incision, packing removed with serosanguinous and humphries foul smelling fluid noted. Wound pink/granulating. [place] to proximal incision intact. )
Data Reviewed
-
CT Scan: Image Reviewed, Report Reviewed and Discussed with Radiology
[2023-07-25 14:51] LABS: Magnesium 1.1 mg/dl (1.6-2.3)
[2023-07-25 15:36] VITALS: BP 127/79
[2023-07-25] MEDS: TORADOL 15 MG IV (16:06)
[2023-07-25] MEDS: NSS 1000 IV (16:26)
[2023-07-25] MEDS: PROTONIX PO (17:19)
[2023-07-25] MEDS: MESTINON PO (17:19)
[2023-07-25 19:43] VITALS: BP 118/78
[2023-07-25 23:52] VITALS: BP 151/77
[2023-07-26] MEDS: DILAUDID 0.5 MG IV (00:12)
[2023-07-26 03:53] VITALS: BP 127/79
[2023-07-26 06:00] VITALS: BMI 28.4
[2023-07-26] MEDS: PROTONIX 40 MG PO ×2 (06:13→15:04)
[2023-07-26] MEDS: ZOSYN 50 IV ×4 (06:13→23:56)
[2023-07-26] MEDS: ULTRAM 25 MG PO ×3 (06:49→19:57)
[2023-07-26] MEDS: ZOFRAN 4 MG IV (06:50)
[2023-07-26 07:35] VITALS: BP 139/74
--- NOTE | 2023-07-26 08:23 | W.PN.HOSP.TC ---
Today's Communication/Plan
-
IV Zosyn. Plan for IR abdominal drainage tomorrow.
Assessment / Plan
Assessment / Plan
Physical Exam
General: Acutely ill. Nontoxic
HEENT: NormoCephalic, Anicteric, Atraumatic, Nose Appears Normal and Other (Very [place] without hearing AID )
Respiratory: Clear; No Wheezes, Rales or Rhonchi
Cardiac: S1/S2 and Regular Rhythm; No JVD
Breast: Deferred by me
GI: Soft, Mild Tender in the right quadrant, Ostomy (colostomy ) and Other (vertical abdominal incision, distal portion opened and still packed with less discharge today)
Musculoskeletal: No Cyanosis and No Edema
Skin: Warm and Dry
Neuro: Awake, Alert, AO x 3, No Motor Deficits, Cranial Nerves Intact (impaired hearing ) and Other
Psych: Calm
A/P:
Post op intraabdominal abdominal RLQ fluid collections; presumed abscess versus seroma- (on PO Augmentin KINDERGARTEN PARAPROFESSIONAL from last discharge). Infected wound.
s/p sigmoidectomy and colostomy last week by Dr. Ny (Sent in by Dr. Melvin)
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
HX TME on last admission associated with sepsis
- Cont to hold Eliquis
- Cont IV Zosyn
-Plan for IR drainage of abdominal collection tomorrow on Thursday (due to Eliquis washout).
-Surgery okay with diet since yesterday 07/24-he is on IDDSI level 6 diet-->Plan to change to n.p.o. after midnight for procedure by IR tomorrow
- f/y T, WCC and BCx
- ID consult appreciated
- CRS consulted and input appreciated
-Blood cultures no growth but pending
-WBC 14.3--> 12.7-->14.5 today
-Discussed with family at bedside today on 07/25 ( and son)
Acute on chr hyponatremia
Suspect poor POs
- Check Ur Na, Ur Osm, Sr Osm--> urine sodium 124, urine osmolarity 594, serum osmolarity 281
-Stop IV fluids today and continue encourage oral intake.
-Today sodium 130
Oral candidiasis
-Continue p.o. fluconazole and oral nystatin
Marginal Hypokalemia
HX Hypomagnesemia
HX Hypocalcemia and albuminemia
- Replaced MG and K as needed--> today K 3.3 and magnesium 1.1. Will give po KCl 40 meq x 2 and Mg Sulfate iv 4 gr. Recheck K and mag tomorrow
HX metastatic lung cancer on chemotherapy (Taxotere, Cyramza)
- Held Taxotere, Cyramza for now
- Primary oncologist Dr. Daniels and consult appreciated.
HX anemia - current Hgb 9.8 - was 8.3 0mn 07/21/23
Anemia of cancer/inflammation/anemia of chronic disease
- Transfuse blood if hemoglobin less than 8
-Today hemoglobin 9.6
Chr Insomnia HX
- on chr Ativan 1 mg HS
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
- Held KINDERGARTEN PARAPROFESSIONAL Eliquis. for now
Essential hypertension
- cont IV metoprolol with holding parameters
Hyperlipidemia
- Hold statin, fenofibrate for now
GERD
- IV Protonix
HX Myasthenia gravis
He denies weakness, double vision
- Hold mycophenolate
- cont pyridostigmine , prednisone
Chronic lower extremity edema
- Hold Lasix for now.
BPH
Anxiety/depression
- on citalopram
DVT Px: SCD
Code: Full
Total time spent on today's encounter was 52 minutes which included time spent in counseling the patient/family regarding diagnosis and treatment plan as listed above, goals of care, and symptom management. Case was discussed with nursing staff,
specialists, and care coordinators/case management. All labs and imaging personally reviewed by me. Remainder the time spent in detailed review of previous records, lab data, imaging, and other medical provider documentation.
Anticipated Discharge: > 48 hours
Subjective/Interval History
-
Date of Service: July 26, 2023
Patient describes some abdominal discomfort mostly on the right side of his abdomen, denies nausea or vomiting. No fevers or chills. No chest pain or shortness of breath.
Objective Data
-
Labs:
Laboratory Results
07/26/23 07/26/23
07:50 07:51
WBC Pending
Hgb Pending
Hct Pending
Plt Count Pending
Sodium Pending
Potassium Pending
Chloride Pending
Carbon Dioxide Pending
BUN Pending
Creatinine Pending
Glucose Pending
Calcium Pending
Vital Signs:
Vital Signs
Temp Pulse Resp BP Pulse Ox
99.3 F 94 16 139/74 97
07/26/23 07:35 07/26/23 07:35 07/26/23 07:35 07/26/23 07:35 07/26/23 07:35
I&O
07/25/23 07/26/23 07/27/23
06:59 06:59 06:59
Intake Total 460 / 460 480 / 480
Output Total 1000 / 1000 400 / 400
Balance -540 / -540 80 / 80
Review of Systems
-
All other systems: Reviewed and negative
[2023-07-26 08:24] LABS: % Basophils 0.4 % (0-2); % Immature Granulocytes 0.8 % (0-0.5); % Lymphocytes 5.9 % (20.5-51.1); % Neutrophils 87.9 % (42.2-75.2); Absolute Basophils 0.1 10^3/uL (0-0.2); Absolute Immature Granulocytes 0.1 10^3/uL (0-0.05); Absolute Lymphocytes 0.9 10^3/uL (1.2-3.4); Absolute Monocytes 0.7 10^3/uL (0.1-0.6); Absolute Neutrophils 12.8 10^3/uL (1.4-6.5); Hematocrit 29.7 % (39.0-52.0); Hemoglobin 9.6 g/dL (13.0-18.0); Mean Corp Hgb Conc. 32.3 g/dL (33.0-37.0); Mean Corpuscular Hgb 32.3 pg (27.0-31.0); Mean Platelet Volume 8.9 fL (7.4-10.4); Nucleated Red Blood Cells % 0 % (-); Platelet Count 339 10^3/uL (130-400); Red Blood Cell Count 2.97 10^6/uL (4.70-6.10); Red Cell Dist. Width 14.1 % (11.5-14.5); White Blood Cell Count 14.5 10^3/uL (4.8-10.8)
[2023-07-26 08:37] LABS: Blood Urea Nitrogen 10 mg/dl (9-20); Calcium 8.4 mg/dl (8.4-10.2); Carbon Dioxide 28 mmol/L (22-30); Chloride 98 mmol/L (98-107); Estimated Creatinine Clearance 118 ml/min; Glucose 80 mg/dl (70-99); Magnesium 1.1 mg/dl (1.6-2.3); Potassium 3.3 mmol/L (3.5-5.1); Sodium 130 mmol/L (135-145); eGFR > 60.00
--- NOTE | 2023-07-26 09:11 | CM ---
Spoke with pt and his son at bedside
Pt lives in a 2 story home with FF set up
Pt was independent prior to last hospitalization, family assists as needed
DME includes wheel chair, walker
HH - current with [facility]
SNF - denies past snf
Has ride at d/c
PCP - Dr Todd Gamboa
Family would like [facility] for HH at d/c
CM will follow for d/c needs
Plan - anticipate home with HH
[2023-07-26] MEDS: MESTINON 60 MG PO ×3 (09:29→21:24)
[2023-07-26] MEDS: DELTASONE 10 MG PO (09:30)
[2023-07-26] MEDS: KCL 20 MEQ PO (09:30)
[2023-07-26] MEDS: MYCOSTATIN ORAL SUSPENSION 5 ML PO ×4 (09:30→21:24)
[2023-07-26] MEDS: DIFLUCAN 100 MG PO (09:30)
[2023-07-26] MEDS: CELEXA 10 MG PO (09:30)
[2023-07-26] MEDS: NSS 1000 IV (09:31)
[2023-07-26 11:22] VITALS: BP 139/74
[2023-07-26] MEDS: FIRST-MOUTHWASH BLM SUSPENSION 5 ML PO (13:21)
--- NOTE | 2023-07-26 14:19 | W.PN.CRS1 ---
Addendum entered and electronically signed by Gregory Wilson MD 07/26/23 14:48:
I saw and examined the patient.
The Jig Fitter's note was reviewed and I agree with the note.
Comment: No new issues. Exam unchanged, dressing changed. Eliquis washout today and IR drain tomorrow.
Original Note:
Today's Communication / Plan
-
Continue local wound care
IR drainage of intraabdominal abscesses tentatively in AM
Assessment/Plan
-
67 yo male with a h/o DVT/PE on Eliquis (LD 07/23), stage 4 lung ca on on taxotere/Cyramza, last 07/10/23 who initially presented with perforation of bowel secondary to complicated diverticulitis on 07/13/23 with Smith's procedure preformed
emergently. He was able to be discharged on 07/20 to continue his recovery at home as he was showing improvement. He presents this admission with increasing drainage from the base of the incision. Leukocytosis noted. CT imaging was done with
loculated postoperative fluid collections in the right lower quadrant measuring 5.7 x 3.5 cm and right posterior pelvis measuring 5.3 x 3.5 cm suspicious for developing abscesses.
AFVSS
Leukocytosis persists with slight up trend
Electrolyte imbalance, being replaced by hospitalist team
--IR consulted for drainage of abscesses, will likely take place on Thursday given timing of last Eliquis dosage. Ok for patient to be prone for drainage insertion. NPO after MN for procedure.
--Hold Eliquis for IR intervention, Ok for heparin gtt if needed
--Continue nystatin for thrush, soft diet until improved
--Follow labs
--ABX as per ID
--Local wound care with dry gauze packing, change BID and prn (changed at bedside)
Subjective Data
Subjective Data
Date of Service: July 26, 2023
Patient seen and examined at bedside with Dr. Wilson. Reports eating very little d/t throat soreness but denies n/v. Denies abdominal pain
Objective Data
-
Vital Signs
Temp Pulse Resp BP Pulse Ox
99.3 F 94 16 139/74 97
07/26/23 07:35 07/26/23 11:22 07/26/23 11:22 07/26/23 11:22 07/26/23 11:22
Intake & Output
07/25/23 07/26/23 07/27/23
06:59 06:59 06:59
Intake Total 460 / 460 480 / 480
Output Total 1000 / 1000 400 / 400
Balance -540 / -540 80 / 80
Intake:
Oral fluids 480 / 480
IV fluids (Total) 360 / 360
IV piggybacks 100 / 100
Output:
Liquid stool amount 200 / 200
Colostomy 200 / 200
Urine, Voided 800 / 800 400 / 400
Lab Results
07/26/23 07:50
07/26/23 07:51
Physical Exam
-
General: No Acute Distress
HEENT: Grossly Normal
Abdomen: Soft, Non Distended, Non Tender and Other (stoma pink/viable productive of light brown stool)
Incision: No Skin Erythema and Other (Fascial dehiscence at base of incision, packing removed with serosanguinous and humphries foul smelling fluid noted. [place] to proximal incision intact. )
[2023-07-26] MEDS: MAGNESIUM SULFATE 100 IV (14:55)
[2023-07-26] MEDS: KCL 40 MEQ PO ×2 (15:02→18:36)
[2023-07-26 15:24] VITALS: BP 142/85
[2023-07-26 19:10] VITALS: BP 124/68
[2023-07-26 23:10] VITALS: BP 135/74
[2023-07-27] VITALS (8 sets, daily range): BP systolic 83–158; BP diastolic 76–89; BMI 28.3
[2023-07-27] MEDS: ULTRAM 25 MG PO ×3 (01:57→22:27)
[2023-07-27] MEDS: ZOSYN 50 IV ×4 (06:01→23:42)
[2023-07-27] MEDS: PROTONIX 40 MG PO ×2 (06:13→16:21)
[2023-07-27 08:19] LABS: % Basophils 0.5 % (0-2); % Immature Granulocytes 0.5 % (0-0.5); % Lymphocytes 8.8 % (20.5-51.1); % Monocytes 6.3 % (1.7-9.3); % Neutrophils 83.9 % (42.2-75.2); Absolute Basophils 0.1 10^3/uL (0-0.2); Absolute Immature Granulocytes 0.1 10^3/uL (0-0.05); Absolute Lymphocytes 1.1 10^3/uL (1.2-3.4); Absolute Monocytes 0.8 10^3/uL (0.1-0.6); Absolute Neutrophils 10.2 10^3/uL (1.4-6.5); Hematocrit 27.2 % (39.0-52.0); Hemoglobin 8.9 g/dL (13.0-18.0); Mean Corp Hgb Conc. 32.7 g/dL (33.0-37.0); Mean Corpuscular Hgb 32.5 pg (27.0-31.0); Mean Corpuscular Volume 99.3 fL (80.0-94.0); Mean Platelet Volume 8.9 fL (7.4-10.4); Nucleated Red Blood Cells % 0 % (-); Platelet Count 373 10^3/uL (130-400); Red Blood Cell Count 2.74 10^6/uL (4.70-6.10); Red Cell Dist. Width 14.1 % (11.5-14.5); White Blood Cell Count 12.2 10^3/uL (4.8-10.8)
[2023-07-27 08:46] LABS: Blood Urea Nitrogen 7 mg/dl (9-20); Calcium 8.3 mg/dl (8.4-10.2); Carbon Dioxide 29 mmol/L (22-30); Chloride 97 mmol/L (98-107); Estimated Creatinine Clearance 118 ml/min; Glucose 88 mg/dl (70-99); Magnesium 1.6 mg/dl (1.6-2.3); Potassium 4.2 mmol/L (3.5-5.1); Sodium 129 mmol/L (135-145); eGFR > 60.00
[2023-07-27] MEDS: CELEXA 10 MG PO (09:23)
[2023-07-27] MEDS: DELTASONE 10 MG PO (09:23)
[2023-07-27] MEDS: MESTINON 60 MG PO ×3 (09:23→21:43)
[2023-07-27] MEDS: KCL 20 MEQ PO (09:23)
[2023-07-27] MEDS: MYCOSTATIN ORAL SUSPENSION 5 ML PO ×4 (09:23→21:44)
[2023-07-27] MEDS: DIFLUCAN 100 MG PO (09:24)
--- NOTE | 2023-07-27 09:35 | WOUNDNOTE ---
[facility] RN note: Patient admitted with post op fluid collections. Patient to have an IR drain placed today. Colostomy stoma pink and almost flush with skin crease mostly at 9 o'clock. Peristomal skin intact. Stool liquid brown. Changed and reinstructed
colostomy appliance change using Wilber wafer # [id number], Kody seal (pinched up at 3 and 9 o'clock to fill in crease) and Wilber pouch # [id number]. Ostomy supplies in room. Patient's sacrum is blanchable red. Protective silicone border foam
applied. Air chair cushion given. Heels off bed with pillow. Instructed patient pressure injury prevention measures. Patient can turn self in bed. Updated RN Casi.
--- NOTE | 2023-07-27 09:57 | W.PN.HOSP.TC ---
Addendum entered and electronically signed by Leonel Gold MD 07/27/23 15:34:
Post procedure, stable VS
d/w surgery, ok to resume Eliquis
Original Note:
Today's Communication/Plan
-
.
Assessment / Plan
Assessment / Plan
Physical Exam:
General: Acutely ill. Nontoxic
HEENT: Normocephalic, Anicteric, Atraumatic, Nose Appears Normal and Other (Very [place] without hearing AID )
Respiratory: Clear; No Wheezes, Rales or Rhonchi
Cardiac: S1/S2 and Regular Rhythm; No JVD
Breast: Deferred by me
GI: Soft, no tenderness, Ostomy (colostomy ) and Other (vertical abdominal incision, distal portion opened and still packed with less discharge today)
Musculoskeletal: No Cyanosis and No Edema
Skin: Warm and Dry
Neuro: Awake, Alert, AO x 3, No Motor Deficits, Cranial Nerves Intact (impaired hearing ) and Other
Psych: Calm
A/P:
Post op intraabdominal abdominal RLQ fluid collections; presumed abscess versus seroma- (on PO Augmentin TWISTER HAND from last discharge). Infected wound.
s/p sigmoidectomy and colostomy last week by Dr. Ny (Sent in by Dr. Melvin)
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
HX TME on last admission associated with sepsis
- Cont to hold Eliquis
- Cont IV Zosyn
-Plan for IR drainage of abdominal collection Thursday (due to Eliquis washout).
-Surgery okay with diet since yesterday 07/24-he is on IDDSI level 6 diet-->Plan to change to n.p.o. after midnight for procedure by IR tomorrow
- f/y T, WCC and BCx
- ID consult appreciated
- CRS consulted and input appreciated
-Blood cultures no growth
-WBC 14.3--> 12.7-->14.5-->12
Acute on chr hyponatremia
Suspect poor POs
- Check Ur Na, Ur Osm, Sr Osm--> urine sodium 124, urine osmolarity 594, serum osmolarity 281
-Stopped IV fluids today and continue encourage oral intake.
-Today sodium 129. No confusion.
Oral candidiasis
-Continue p.o. fluconazole and oral nystatin
Marginal Hypokalemia
HX Hypomagnesemia
HX Hypocalcemia and albuminemia
- Replaced MG and K as needed--> today K 3.3 and magnesium 1.1. Will give po KCl 40 meq x 2 and Mg Sulfate iv 4 gr. Recheck K and mag tomorrow
HX metastatic lung cancer on chemotherapy (Taxotere, Cyramza)
- Held Taxotere, Cyramza for now
- Primary oncologist Dr. Daniels and consult appreciated.
HX anemia - current Hgb 9.8 - was 8.3 0mn 07/21/23
Anemia of cancer/inflammation/anemia of chronic disease
- Transfuse blood if hemoglobin less than 8
-Today hemoglobin 9.6
Chr Insomnia HX
- on chr Ativan 1 mg HS
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
- Held TWISTER HAND Eliquis. for now
Essential hypertension
- cont IV metoprolol with holding parameters
Hyperlipidemia
- Hold statin, fenofibrate for now
GERD
- IV Protonix
HX Myasthenia gravis
He denies weakness, double vision
- Hold mycophenolate
- cont pyridostigmine. Finished tapering prednisone per neurologist's recommendation.
Chronic lower extremity edema
- Hold Lasix for now.
BPH
Anxiety/depression
- on citalopram
DVT Px: SCD
Code: Full
Total time spent on today's encounter was 52 minutes which included time spent in counseling the patient/family regarding diagnosis and treatment plan as listed above, goals of care, and symptom management. Case was discussed with nursing staff,
specialists, and care coordinators/case management. All labs and imaging personally reviewed by me. Remainder the time spent in detailed review of previous records, lab data, imaging, and other medical provider documentation.
Anticipated Discharge: 24 - 48 hours
Subjective/Interval History
-
Date of Service: July 27, 2023
Objective Data
-
Labs:
Laboratory Results
07/27/23
07:35
WBC 12.2 H
Hgb 8.9 L
Hct 27.2 L
Plt Count 373
Sodium 129 L
Potassium 4.2 D
Chloride 97 L
Carbon Dioxide 29
BUN 7 L
Creatinine 0.4 L
Glucose 88
Calcium 8.3 L
Vital Signs:
Vital Signs
Temp Pulse Resp BP Pulse Ox
98.1 F 84 17 138/78 97
07/27/23 07:00 07/27/23 07:00 07/27/23 07:00 07/27/23 07:00 07/27/23 07:00
I&O
07/26/23 07/27/23 07/28/23
06:59 06:59 06:59
Intake Total 480 / 480 930 / 930
Output Total 400 / 400 1250 / 1250
Balance 80 / 80 -320 / -320
--- NOTE | 2023-07-27 10:19 | CM ---
Spoke with previous CM on case who stated that family wanted to switch from to [facility]. Referral sent. Will f/u.
Plan: Case management will continue to follow and assist with discharge planning. Home with through [facility].
--- NOTE | 2023-07-27 12:25 | W.PN.UPDATE ---
Update Note
Progress Note Update
CT guided pelvic abscess drain placed, yielding 25 cc purulent fluid. Sent for C+S.
Drained the more dependent collection. It seems like the two collections communicate on CT, hopefully this drain will drain both collections.
--- NOTE | 2023-07-27 12:27 | W.PN.CRS1 ---
Today's Communication / Plan
-
IR today for drain
Low residue diet after drain
Hold Eliquis
Assessment/Plan
-
67 yo male with a h/o DVT/PE on Eliquis (LD 07/23), stage 4 lung ca on on taxotere/Cyramza, last 07/10/23 who initially presented with perforation of bowel secondary to complicated diverticulitis on 07/13/23 with Smith's procedure preformed
emergently. He was able to be discharged on 07/20 to continue his recovery at home as he was showing improvement. He presents this admission with increasing drainage from the base of the incision. Leukocytosis noted. CT imaging was done with
loculated postoperative fluid collections in the right lower quadrant measuring 5.7 x 3.5 cm and right posterior pelvis measuring 5.3 x 3.5 cm suspicious for developing abscesses.
1. IR today for drainage of abscesses.
2. Vitals normal. WBC 12.2 down from 14.5.
3. Continue IV antibiotics.
4. Continue to hold Eliquis.
5. Local wound care: Wet-to-dry dressings changed daily.
6. Advance to a low residue diet after IR drain placement.
Subjective Data
Subjective Data
Date of Service: July 27, 2023
Patient states he feels good. His stoma is pink. He overall has no complaints.
Objective Data
-
Vital Signs
Temp Pulse Resp BP Pulse Ox
98.2 F 83 19 150/89 96
07/27/23 11:26 07/27/23 11:26 07/27/23 11:26 07/27/23 11:26 07/27/23 11:26
Intake & Output
07/26/23 07/27/23 07/28/23
06:59 06:59 06:59
Intake Total 480 / 480 930 / 930
Output Total 400 / 400 1250 / 1250
Balance 80 / 80 -320 / -320
Intake:
Oral fluids 480 / 480 290 / 290
IV fluids (Total) 540 / 540
IV piggybacks 100 / 100
Output:
Liquid stool amount 100 / 100
Colostomy 100 / 100
Urine, Voided 400 / 400 1150 / 1150
Lab Results
07/27/23 07:35
07/27/23 07:35
Physical Exam
-
General: No Acute Distress and AOx3
Abdomen: Soft, Non Distended, Non Tender and Other (Stoma warm and pink)
Wound: Dressing Changed
Incision: Clear, Dry, Intact
--- NOTE | 2023-07-27 12:51 | VNURNOTE ---
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
Discussed w/CM patient's wish to switch to [facility].
[facility] notified of change.
[2023-07-27] MEDS: ELIQUIS 2.5 MG PO (19:47)
[2023-07-28] MEDS: COMPAZINE 5 MG IV ×2 (01:00→23:24)
[2023-07-28] MEDS: DILAUDID 0.5 MG IV (01:00)
[2023-07-28 02:43] VITALS: BP 134/81
[2023-07-28] MEDS: ZOSYN 50 IV ×4 (05:56→23:28)
[2023-07-28 06:00] VITALS: BMI 28.3
[2023-07-28] MEDS: ULTRAM 25 MG PO ×3 (06:01→23:35)
[2023-07-28] MEDS: PROTONIX 40 MG PO ×2 (06:02→16:56)
[2023-07-28 07:27] VITALS: BP 130/81
[2023-07-28 07:52] LABS: Hematocrit 28.8 % (39.0-52.0); Hemoglobin 9.3 g/dL (13.0-18.0); Mean Corp Hgb Conc. 32.3 g/dL (33.0-37.0); Mean Corpuscular Hgb 32.7 pg (27.0-31.0); Mean Corpuscular Volume 101.4 fL (80.0-94.0); Mean Platelet Volume 8.7 fL (7.4-10.4); Platelet Count 381 10^3/uL (130-400); Red Blood Cell Count 2.84 10^6/uL (4.70-6.10); White Blood Cell Count 11.6 10^3/uL (4.8-10.8)
[2023-07-28] MEDS: ELIQUIS 2.5 MG PO ×2 (07:55→21:43)
[2023-07-28] MEDS: DIFLUCAN 100 MG PO (07:55)
[2023-07-28] MEDS: CELEXA 10 MG PO (07:55)
[2023-07-28] MEDS: KCL 20 MEQ PO (07:56)
[2023-07-28] MEDS: MYCOSTATIN ORAL SUSPENSION 5 ML PO ×4 (07:56→21:43)
[2023-07-28] MEDS: MESTINON 60 MG PO ×3 (07:56→21:43)
[2023-07-28 08:14] LABS: Blood Urea Nitrogen 6 mg/dl (9-20); Calcium 8.7 mg/dl (8.4-10.2); Carbon Dioxide 29 mmol/L (22-30); Chloride 96 mmol/L (98-107); Estimated Creatinine Clearance 118 ml/min; Glucose 100 mg/dl (70-99); Potassium 4.3 mmol/L (3.5-5.1); Sodium 129 mmol/L (135-145); eGFR > 60.00
--- NOTE | 2023-07-28 09:14 | W.PN.HOSP.TC ---
Today's Communication/Plan
-
likely dc in am
Assessment / Plan
Assessment / Plan
Physical Exam:
General: Acutely ill. Nontoxic
HEENT: Normocephalic, Anicteric, Atraumatic, Nose Appears Normal and Other (Very [place] without hearing AID )
Respiratory: Clear; No Wheezes, Rales or Rhonchi
Cardiac: S1/S2 and Regular Rhythm; No JVD
Breast: Deferred by me
GI: Soft, no tenderness, Ostomy (colostomy ) and Other (vertical abdominal incision, distal portion opened and still packed with less discharge today)
Musculoskeletal: No Cyanosis and No Edema
Skin: Warm and Dry
Neuro: Awake, Alert, AO x 3, No Motor Deficits, Cranial Nerves Intact (impaired hearing ) and Other
Psych: Calm
A/P:
Post op intraabdominal abdominal RLQ fluid collections; presumed abscess (on PO Augmentin ZYGLO INSPECTOR from last discharge). Infected wound.
s/p sigmoidectomy and colostomy last week by Dr. Ny (Sent in by Dr. Melvin)
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
HX TME on last admission associated with sepsis
- resumed Eliquis.
- Cont IV Zosyn
-s/p IR drainage of abdominal collection Thursday07/27/23 (due to Eliquis washout).
-Blood cultures no growth
WBC normalizing
Appreciate surgery and ID help
Acute on chr hyponatremia
urine sodium 124, urine osmolarity 594, serum osmolarity 281
-Stopped IV fluids today and continue encourage oral intake.
-Today sodium 129. No confusion.
Oral candidiasis
-Continue p.o. fluconazole and oral nystatin
Marginal Hypokalemia
HX Hypomagnesemia
HX Hypocalcemia and albuminemia
HX metastatic lung cancer on chemotherapy (Taxotere, Cyramza)
- Held Taxotere, Cyramza for now
- Primary oncologist Dr. Daniels and consult appreciated.
HX anemia - current Hgb 9.3 -
Anemia of cancer/inflammation/anemia of chronic disease
- Transfuse blood if hemoglobin less than 8
Chr Insomnia HX
- on chr Ativan 1 mg HS
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 for now
Essential hypertension
- Back on BP medications including Lasix.\\
Hyperlipidemia
- no changes intended.
GERD
- IV Protonix
HX Myasthenia gravis
He denies weakness, double vision
- Hold mycophenolate
- cont pyridostigmine. Finished tapering prednisone per neurologist's recommendation.
Chronic lower extremity edema
- Resume Lasix.
BPH
Anxiety/depression
- on citalopram
DVT Px: SCD
Code: Full
Total time spent to see the patient, examine the patient on the floor, review data and lab results, discuss treatment plan with patient, family, nursing staff around 55 minutes.
Anticipated Discharge: 24 - 48 hours
Subjective/Interval History
-
Date of Service: July 28, 2023
He denies abdominal pain or nausea
tolerating diet
no back pain
Less cough, no sputum
Objective Data
-
Labs:
Laboratory Results
07/28/23
07:31
WBC 11.6 H
Hgb 9.3 L
Hct 28.8 L
Plt Count 381
Sodium 129 L
Potassium 4.3
Chloride 96 L
Carbon Dioxide 29
BUN 6 L
Creatinine 0.5 L
Glucose 100 H
Calcium 8.7
Vital Signs:
Vital Signs
Temp Pulse Resp BP Pulse Ox
98.4 F 86 18 130/81 95
07/28/23 07:27 07/28/23 07:27 07/28/23 07:27 07/28/23 07:27 07/28/23 07:27
I&O
07/27/23 07/28/23 07/29/23
06:59 06:59 06:59
Intake Total 930 / 930 150 / 150
Output Total 1250 / 1250 1450 / 1450
Balance -320 / -320 -1300 / -1300
--- NOTE | 2023-07-28 10:07 | W.PN.CRS1 ---
Today's Communication / Plan
-
Wound care
Low residue diet
Okay to restart Eliquis from our perspective
Assessment/Plan
-
67 yo male with a h/o DVT/PE on Eliquis (LD 07/23), stage 4 lung ca on on taxotere/Cyramza, last 07/10/23 who initially presented with perforation of bowel secondary to complicated diverticulitis on 07/13/23 with Smith's procedure preformed
emergently. He was able to be discharged on 07/20 to continue his recovery at home as he was showing improvement. He presents this admission with increasing drainage from the base of the incision. Leukocytosis noted. CT imaging was done with
loculated postoperative fluid collections in the right lower quadrant measuring 5.7 x 3.5 cm and right posterior pelvis measuring 5.3 x 3.5 cm suspicious for developing abscesses.
1. IR cultures pending.
2. Vitals normal. WBC 11.6.
3. Continue IV antibiotics.
4. Okay to restart Eliquis tomorrow perspective.
5. Local wound care: Wet-to-dry dressings changed daily. I have asked the wound nurse to examine the wound. The family would also like to follow-up with the wound clinic as an outpatient.
6. Continue low residue diet.
7. Dispo: Home with [facility] visiting nurses.
Subjective Data
Procedure
07/27/2023- IR drain placement
Subjective Data
Date of Service: July 28, 2023
Patient states he has no complaints.
Objective Data
-
Vital Signs
Temp Pulse Resp BP Pulse Ox
98.4 F 86 18 130/81 95
07/28/23 07:27 07/28/23 07:27 07/28/23 07:27 07/28/23 07:27 07/28/23 09:36
Intake & Output
07/27/23 07/28/23 07/29/23
06:59 06:59 06:59
Intake Total 930 / 930 150 / 150
Output Total 1250 / 1250 1450 / 1450
Balance -320 / -320 -1300 / -1300
Intake:
Oral fluids 290 / 290 50 / 50
IV fluids (Total) 540 / 540
IV piggybacks 100 / 100 100 / 100
Output:
Liquid stool amount 100 / 100 175 / 175
Colostomy 100 / 100 175 / 175
Drain Output (Total)
Right Sacrum Placed in IR
Urine, Voided 1150 / 1150 1250 / 1250
Lab Results
07/28/23 07:31
07/28/23 07:31
Physical Exam
-
General: No Acute Distress
Abdomen: Soft, Non Distended, Non Tender and Other (CHEN drain with beige output)
Skin: Warm and Dry
Wound: Dressing in Place (Removed) and Other (Wound with open kyra at the bottom about 4 cm, wound with mucin over top of it. Left open to air so wound nurse could examine.)
[2023-07-28] MEDS: LOPRESSOR 25 MG PO (10:33)
--- NOTE | 2023-07-28 10:37 | W.PN.ONC ---
Today's Communication / Plan
-
Management of infection per primary team and colorectal surgery
Diet as tolerated
Consider pre-medicating prior to meals for comfort
Continue supportive measures
Further mgmt of lung cancer TBD, systemic therapy on hold pending recovery from infection and surgery
Restart Eliquis tomorrow, 07/28, per CRS
Will follow along.
Impression
Impression
Abdominal abscesses s/p emergent bowel resection 07/13/23 for perforated diverticulitis
Stage IV lung cancer, on Taxotere/Cyramza, last 07/10/23
Myasthenia gravis
DVT of right IJ, SVC, on Eliquis
Oral mucositis with ulcerations
Poor appetite
Subjective/Objective
Subjective/Objective
Patient is resting in bed. Family at bedside. He is utilizing the Yankauer suction for oral secretions. He complains of mouth pain due to ulcerations on the tongue which has made eating difficult and resulted in very poor appetite. He is able to
tolerate water today. Denies pain with swallowing. Denies fever.
Vital Signs:
Vital Signs
Temp Pulse Resp BP Pulse Ox
98.4 F 86 18 130/81 95
07/28/23 07:27 07/28/23 07:27 07/28/23 07:27 07/28/23 07:27 07/28/23 09:36
physical exam:
aaox3, very [place], pallor
ulcerations underside of the tongue
RLQ CHEN drain with purulent drainage
ostomy site CDI
Lab Results:
Laboratory Data
WBC 11.6 10^3/uL (4.8-10.8) H 07/28/23 07:31
Hgb 9.3 g/dL (13.0-18.0) L 07/28/23 07:31
Plt Count 381 10^3/uL (130-400) 07/28/23 07:31
eGFR > 60.00 07/28/23 07:31
--- NOTE | 2023-07-28 11:26 | WOUNDNOTE ---
SHAWNA RN NOTE: Followed up as requested by family and MARY June regarding abdominal wound dressing. Midline incision closed proximal and open distally. Open area with clean base, moderate drainage, no odor or sign of infection. Spoke with son and
at bedside, listened to concerns. Teaching done regarding wound care, saline wtd dressing applied. Confirmed with MARY June. Turned patient onto sides, heels, sacrum and buttocks intact. Ostomy appliance intact no leakage. Patient encouraged
to eat protein in diet to help with wound healing. Patient will follow up at wound care center, MARY June agreed. Patient will have [facility]N at home and daughter in law is a nurse, states son. Will update discharge instructions and follow as needed.
--- NOTE | 2023-07-28 12:19 | CM ---
CM reviewed chart. Per Hospitalist, discharge in roughly 48 hours once wound culture is finalized. CM updated Darcie with [facility], will send updated clinicals in [facility]. CM will continue to follow for discharge planning needs.
Plan; home with [facility].
--- NOTE | 2023-07-28 13:57 | W.PN.ID1 ---
Date of Service
Date of Service: July 28, 2023
Today's Communication
Continue antibiotics. Await cultures.
Assessment / Plan
Leukocytosis
Wound infection
Abdominal abscesses
- s/p drainage
Lung CA with liver mets on Taxotere, Cyramza, steroid
hx SVC syndrome
BPH
GERD
Hypertension
Myasthenia gravis, on Cellcept
Diverticulitis
Chronic LE edema
CLAUDIO
Hard of hearing
Recommendations:
Continue with empiric Zosyn for the present.
Await aerobic and anaerobic culture.
Monitor white count and temperature curve. Local care to the abdominal wound.
Chief Complaint
-: Other (Abdominal abscess.)
Subjective / Review of Systems
Review of Systems: No Fever and No Chills
Vital Signs / Physical Exam
Vital Signs
Vital Signs
Temp Pulse Resp BP Pulse Ox
98.1 F 85 16 121/80 95
07/28/23 11:23 07/28/23 11:23 07/28/23 11:23 07/28/23 10:33 07/28/23 11:31
Physical Exam
Constitutional: Comfortable, Chronically Ill and Non-toxic
Eyes: Sclera Anicteric
Cardiovascular: S1/S2; Negative S3/S4 or Murmur
Pulmonary: Clear and Non Labored
Gastrointestinal: Soft, Non Distended and Other (Ostomy in place. Posterior gluteal CHEN drain in place. Purulent fluid noted.)
Skin: Warm and Dry; Negative Rash or Jaundice
Objective Data
Lab Data
Lab Results
07/28/23 07:31
07/28/23 07:31
Estimated Creat Clear 118 ml/min 07/28/23 07:31
Lactic Acid Cancelled 07/24/23 21:18
Total Bilirubin 0.7 mg/dl (0.2-1.3) 07/25/23 04:55
AST 36 U/L (17-59) 07/25/23 04:55
ALT 19 U/L (0-50) 07/25/23 04:55
Alkaline Phosphatase 57 U/L (38-126) 07/25/23 04:55
Most recent labs reviewed.
Micro Results:
07/27/23 12:37 Wound Culture - Preliminary
Abscess Gram negative bacilli
Gram Stain - Preliminary
07/24/23 19:01 Blood Culture - Preliminary
Blood/Venous No Growth in 72 hours- Final report to follow
07/24/23 19:01 Blood Culture - Preliminary
Blood/Venous No Growth in 72 hours- Final report to follow
Imaging:
07/24/2023 CT abdomen/pelvis with contrast: There has been interval sigmoidectomy and left lower quadrant colostomy placement. There is loculated postoperative fluid collections in the right lower quadrant and right posterior pelvis measuring 5.7 x
3.5 cm and 5.3 x 3.5 cm respectively. These are suspicious for developing abscesses. Hepatic metastases are also noted. Please see full dictation for additional detail.
[2023-07-28 15:00] VITALS: BP 127/80
[2023-07-28 15:57] VITALS: BP 127/80
[2023-07-28 23:10] VITALS: BP 132/76
[2023-07-29 05:22] VITALS: BMI 28.2
[2023-07-29] MEDS: ZOSYN 50 IV (05:48)
[2023-07-29 07:00] VITALS: BP 144/88
[2023-07-29 07:26] LABS: Glucose - Point of Care 108 mg/dl (70-99)
--- NOTE | 2023-07-29 07:29 | W.PN.ONC2 ---
Today's Communication / Plan
-
Counts adequate. Following peripherally.
Impression
Impression
Abdominal abscesses s/p emergent bowel resection 07/13/23 for perforated diverticulitis
Stage IV lung cancer, on Taxotere/Cyramza, last 07/10/23
Myasthenia gravis
DVT of right IJ, SVC, on Eliquis
Oral mucositis with ulcerations
Poor appetite
Plan
Plan
Mgmt of abscesses/infection per primary team and CRS
Antibiotics, abscess drainage in IR after Eliquis washout
Further mgmt of lung cancer TBD, systemic therapy on hold pending recovery from infection and surgery
Will follow along peripherally
Subjective/Objective
Chief Complaint
ACS Heme Onc
Subjective
Mouth okay. Feels wiped out. No other complaints.
Vital Signs:
Vital Signs
Temp Pulse Resp BP Pulse Ox
98.7 F 79 18 132/76 96
07/28/23 23:10 07/28/23 23:10 07/28/23 23:10 07/28/23 23:10 07/28/23 23:10
Lab Results:
Laboratory Data
WBC 11.6 10^3/uL (4.8-10.8) H 07/28/23 07:31
Hgb 9.3 g/dL (13.0-18.0) L 07/28/23 07:31
Plt Count 381 10^3/uL (130-400) 07/28/23 07:31
eGFR > 60.00 07/28/23 07:31
Physical Exam
Cardiology: Normal Sinus Rhythm, S1 and S2
Pulmonary: Clear
GI: Soft
[2023-07-29] MEDS: KCL 20 MEQ PO (08:16)
[2023-07-29] MEDS: MESTINON 60 MG PO ×3 (08:16→21:10)
[2023-07-29] MEDS: ELIQUIS 2.5 MG PO ×2 (08:17→21:10)
[2023-07-29] MEDS: CELEXA 10 MG PO (08:17)
[2023-07-29] MEDS: DIFLUCAN 100 MG PO (08:17)
[2023-07-29] MEDS: MYCOSTATIN ORAL SUSPENSION 5 ML PO ×4 (08:17→21:10)
[2023-07-29] MEDS: PROTONIX 40 MG PO ×2 (08:19→17:02)
--- NOTE | 2023-07-29 11:09 | W.PN.CRS1 ---
Today's Communication / Plan
-
dressing changes with dry packing
continue abx
continue diet
Assessment/Plan
-
67 yo male with a h/o DVT/PE on Eliquis (LD 07/23), stage 4 lung ca on on taxotere/Cyramza, last 07/10/23 who initially presented with perforation of bowel secondary to complicated diverticulitis on 07/13/23 with Smith's procedure preformed
emergently. He was able to be discharged on 07/20 to continue his recovery at home as he was showing improvement. He presents this admission with increasing drainage from the base of the incision. Leukocytosis noted. CT imaging was done with
loculated postoperative fluid collections in the right lower quadrant measuring 5.7 x 3.5 cm and right posterior pelvis measuring 5.3 x 3.5 cm suspicious for developing abscesses.
1. IR cultures pending.
2. Vitals normal.
3. Continue IV antibiotics.
4. Eliquis has been restarted.
5. Local wound care: Dry packing with dry dressing on top. No longer wet to dry dressings. Change daily. Patient will follow-up with the wound clinic as an outpatient.
6. Continue low residue diet.
7. Dispo: Home with [facility] visiting nurses.
Subjective Data
Procedure
07/27/2023- IR drain placement
Subjective Data
Date of Service: July 29, 2023
Patient states he still has a little nausea at times. He is eating. He has no pain. His stoma is functioning.
Objective Data
-
Vital Signs
Temp Pulse Resp BP Pulse Ox
98.8 F 91 17 144/88 100
07/29/23 07:00 07/29/23 07:00 07/29/23 07:00 07/29/23 07:00 07/29/23 09:46
Intake & Output
07/28/23 07/29/23 07/30/23
06:59 06:59 06:59
Intake Total 150 / 150 600 / 600
Output Total 1450 / 1450 1785 / 1785
Balance -1300 / -1300 -1185 / -1185
Intake:
Oral fluids 50 / 50 600 / 600
IV fluids (Total) 0 / 0
IV piggybacks 100 / 100 0 / 0
Output:
Liquid stool amount 175 / 175 170 / 170
Colostomy 175 / 175 170 / 170
Drain Output (Total) 20 / 20
Right Sacrum Placed in IR 20 /
Urine, Voided 1250 / 1250 1595 / 1595
Lab Results
07/28/23 07:31
07/28/23 07:31
Physical Exam
-
General: No Acute Distress and AOx3
Abdomen: Soft, Non Distended, Non Tender and Other (wound open, changed, some mucin in wound and gauze soaked. re-packed with dry gauze. )
--- NOTE | 2023-07-29 11:14 | W.PN.ID1 ---
Date of Service
Date of Service: July 29, 2023
Today's Communication
Narrow to Unasyn. See below�
Assessment / Plan
Leukocytosis; trending down.
Wound infection
Abdominal abscesses
- s/p drainage; culture with E. coli.
Lung CA with liver mets on Taxotere, Cyramza, steroid
hx SVC syndrome
BPH
GERD
Hypertension
Myasthenia gravis, on Cellcept
Diverticulitis
Chronic LE edema
CLAUDIO
Hard of hearing
Recommendations:
Narrow to Unasyn for the present, with likely transition to amoxicillin or Augmentin at discharge.
Follow CHEN output.
Monitor white count and temperature curve. Local care to the abdominal wound.
Chief Complaint
-: Other (Abdominal abscess.)
Subjective / Review of Systems
Review of Systems: No Fever
Vital Signs / Physical Exam
Vital Signs
Vital Signs
Temp Pulse Resp BP Pulse Ox
98.8 F 91 17 144/88 100
07/29/23 07:00 07/29/23 07:00 07/29/23 07:00 07/29/23 07:00 07/29/23 09:46
Physical Exam
Constitutional: No Acute Distress, Comfortable and Non-toxic
Eyes: Sclera Anicteric
Cardiovascular: S1/S2; Negative S3/S4
Pulmonary: Coarse and Non Labored
Gastrointestinal: Soft, Non Distended and Other (Right posterior CHEN drain in place.)
Extremities: Edema; Negative Cyanosis or Erythema
Wound: Other (Anterior abdominal wound packed and dressed.)
Neurological: Awake and Alert
Objective Data
Lab Data
Lab Results
07/28/23 07:31
07/28/23 07:31
Estimated Creat Clear 118 ml/min 07/28/23 07:31
Lactic Acid Cancelled 07/24/23 21:18
Total Bilirubin 0.7 mg/dl (0.2-1.3) 07/25/23 04:55
AST 36 U/L (17-59) 07/25/23 04:55
ALT 19 U/L (0-50) 07/25/23 04:55
Alkaline Phosphatase 57 U/L (38-126) 07/25/23 04:55
Most recent labs reviewed.
Micro Results:
07/27/23 12:37 Wound Culture - Final
Abscess Escherichia coli
Gram Stain - Final
07/24/23 19:01 Blood Culture - Preliminary
Blood/Venous No Growth in 4 days- Final report to follow
07/24/23 19:01 Blood Culture - Preliminary
Blood/Venous No Growth in 4 days- Final report to follow
Wound/abscess/other Cult Final 07/27/23
Many Escherichia coli
Organism 1 Escherichia coli
1. Escherichia coli
M.I.C. RX
--------- ---
Amoxicillin/Potas. Clavulanate <=8/4 S
Ampicillin <=8 S
Ampicillin/Sulbactam <=8/4 S
Cefazolin <=2 S
Ertapenem <=0.5 S
Ciprofloxacin >2 R
Gentamicin <=4 S
Levofloxacin >4 R
Meropenem <=1 S
Piperacillin/Tazobactam <=16 S
Tobramycin <=4 S
Trimethoprim/Sulfamethoxazole <=2/38 S
Imaging:
07/24/2023 CT abdomen/pelvis with contrast: There has been interval sigmoidectomy and left lower quadrant colostomy placement. There is loculated postoperative fluid collections in the right lower quadrant and right posterior pelvis measuring 5.7 x
3.5 cm and 5.3 x 3.5 cm respectively. These are suspicious for developing abscesses. Hepatic metastases are also noted. Please see full dictation for additional detail.
[2023-07-29] MEDS: UNASYN IV ×3 (12:18→23:55)
[2023-07-29 13:05] VITALS: BP 143/83; PULSE 93; O2SAT 98
[2023-07-29] MEDS: ULTRAM 25 MG PO (13:30)
[2023-07-29 14:00] VITALS: BP 143/72
--- NOTE | 2023-07-29 15:47 | W.PN.HOSP.TC ---
Today's Communication/Plan
-
likely dc in AM or Thursday
Assessment / Plan
Assessment / Plan
Physical Exam:
General: Acutely ill. Nontoxic
HEENT: Normocephalic, Anicteric, Atraumatic, Nose Appears Normal and Other (Very [place] without hearing AID )
Respiratory: Clear; No Wheezes, Rales or Rhonchi
Cardiac: S1/S2 and Regular Rhythm; No JVD
Breast: Deferred by me
GI: Soft, no tenderness, Ostomy (colostomy ) and Other (vertical abdominal incision, distal portion opened and still packed with less discharge today)
Musculoskeletal: No Cyanosis and No Edema
Skin: Warm and Dry
Neuro: Awake, Alert, AO x 3, No Motor Deficits, Cranial Nerves Intact (impaired hearing ) and Other
Psych: Calm
A/P:
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 Infected wound.
s/p sigmoidectomy and colostomy last week by Dr. Ny (Sent in by Dr. Melvin)
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
HX TME on last admission associated with sepsis
- resumed Eliquis.
- Cont IV Zosyn
-s/p IR drainage of abdominal collection Thursday07/27/23 (due to Eliquis washout).
-Blood cultures no growth
WBC normalizing
Appreciate surgery and ID help
Acute on chr hyponatremia
urine sodium 124, urine osmolarity 594, serum osmolarity 281
-Stopped IV fluids today and continue encourage oral intake.
-Today sodium 129. No confusion.
Oral candidiasis
-Continue p.o. fluconazole and oral nystatin
Marginal Hypokalemia
HX Hypomagnesemia
HX Hypocalcemia and albuminemia
HX metastatic lung cancer on chemotherapy (Taxotere, Cyramza)
- Held Taxotere, Cyramza for now
- Primary oncologist Dr. Daniels and consult appreciated.
HX anemia - current Hgb 9.3 -
Anemia of cancer/inflammation/anemia of chronic disease
- Transfuse blood if hemoglobin less than 8
Chr Insomnia HX
- on chr Ativan 1 mg HS
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
Essential hypertension
- Back on BP medications including Lasix.\\
Hyperlipidemia
- no changes intended.
GERD
- IV Protonix
HX Myasthenia gravis
He denies weakness, double vision
- Hold mycophenolate
- cont pyridostigmine. Finished tapering prednisone per neurologist's recommendation.
Chronic lower extremity edema
- Resume Lasix.
BPH
Anxiety/depression
- on citalopram
DVT Px: SCD
Code: Full
Total time spent to see the patient, examine the patient on the floor, review data and lab results, discuss treatment plan with patient, family, nursing staff around 55 minutes.
Anticipated Discharge: Within 24 hours
Subjective/Interval History
-
Date of Service: July 29, 2023
He feels better
tolerating diet
no fevers
Objective Data
-
Vital Signs:
Vital Signs
Temp Pulse Resp BP Pulse Ox
98.7 F 76 18 143/72 95
07/29/23 14:00 07/29/23 14:00 07/29/23 14:00 07/29/23 14:00 07/29/23 14:00
I&O
07/28/23 07/29/23 07/30/23
06:59 06:59 06:59
Intake Total 150 / 150 600 / 600
Output Total 1450 / 1450 1785 / 1785
Balance -1300 / -1300 -1185 / -1185
--- NOTE | 2023-07-29 16:50 | CM ---
met with patient and his at bedside.patient is sp ir drainage of abd ollection,cont iv zosyn,po fluconazole for thrush.per attending,patient may be ready for discharge tomorrow or friiday.plan is home with [facility].
[2023-07-29 23:00] VITALS: BP 134/83
[2023-07-29] MEDS: FLUSH (NSS) 2 FLUSH IV (23:55)
[2023-07-30] MEDS: COMPAZINE 5 MG IV ×3 (00:02→22:22)
[2023-07-30 05:25] VITALS: BMI 27.1
[2023-07-30] MEDS: UNASYN IV ×4 (06:26→23:41)
[2023-07-30] MEDS: PROTONIX 40 MG PO ×2 (06:27→16:04)
[2023-07-30 07:42] VITALS: BP 141/96
[2023-07-30] MEDS: MESTINON 60 MG PO ×3 (08:46→21:16)
[2023-07-30] MEDS: DIFLUCAN 100 MG PO (08:46)
[2023-07-30] MEDS: MYCOSTATIN ORAL SUSPENSION 5 ML PO ×2 (08:46→14:10)
[2023-07-30] MEDS: LASIX 20 MG PO (08:46)
[2023-07-30] MEDS: ELIQUIS 2.5 MG PO ×2 (08:47→21:16)
[2023-07-30] MEDS: KCL 20 MEQ PO (08:47)
[2023-07-30] MEDS: CELEXA 10 MG PO (08:47)
--- NOTE | 2023-07-30 09:11 | W.PN.HOSP.TC ---
Addendum entered and electronically signed by Leonel Gold MD 07/30/23 13:16:
Addendum
Patient has poor oral intake and poor appetite
Loss of taste could be attributed to chemotherapy
Poor performance status in setting of cancer
Discussed with patient and family
Trial of Compazine premeals
End
Original Note:
Today's Communication/Plan
-
.dc planning
Assessment / Plan
Assessment / Plan
Physical Exam:
General: Acutely ill. Nontoxic
HEENT: Normocephalic, Anicteric, Atraumatic, Nose Appears Normal and Other (Very [place] without hearing AID )
Respiratory: Clear; No Wheezes, Rales or Rhonchi
Cardiac: S1/S2 and Regular Rhythm; No JVD
Breast: Deferred by me
GI: Soft, no tenderness, Ostomy (colostomy ) and Other (vertical abdominal incision, distal portion opened and still packed with less discharge today)
Musculoskeletal: No Cyanosis and No Edema
Skin: Warm and Dry
Neuro: Awake, Alert, AO x 3, No Motor Deficits, Cranial Nerves Intact (impaired hearing ) and Other
Psych: Calm
A/P:
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 Infected wound.
s/p sigmoidectomy and colostomy last week by Dr. Ny (Sent in by Dr. Melvin)
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
HX TME on last admission associated with sepsis
- resumed Eliquis.
- Cont IV Unasyn
-s/p IR drainage of abdominal collection Thursday07/27/23 (due to Eliquis washout).
-Blood cultures no growth
WBC normalizing
Appreciate surgery and ID help
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
urine sodium 124, urine osmolarity 594, serum osmolarity 281
-Stopped IV fluids, continue encourage oral intake.
-Sodium 129. No confusion.
Oral candidiasis
-Continue p.o. fluconazole and oral nystatin
Marginal Hypokalemia
HX Hypomagnesemia
HX Hypocalcemia and albuminemia
HX metastatic lung cancer on chemotherapy (Taxotere, Cyramza)
- Held Taxotere, Cyramza for now
- Primary oncologist Dr. Daniels and consult appreciated.
HX anemia - current Hgb 9.3 -
Anemia of cancer/inflammation/anemia of chronic disease
- Transfuse blood if hemoglobin less than 8
Chr Insomnia HX
- on chr Ativan 1 mg HS
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
Essential hypertension
- Back on BP medications including Lasix.\\
Hyperlipidemia
- no changes intended.
GERD
- IV Protonix
HX Myasthenia gravis
He denies weakness, double vision
- Hold mycophenolate
- cont pyridostigmine. Finished tapering prednisone per neurologist's recommendation.
Chronic lower extremity edema
- Resume Lasix.
BPH
Anxiety/depression
- on citalopram
DVT Px: SCD
Code: Full
Total time spent to see the patient, examine the patient on the floor, review data and lab results, discuss treatment plan with patient, family, nursing staff around 55 minutes.
Anticipated Discharge: 24 - 48 hours
Subjective/Interval History
-
Date of Service: July 30, 2023
Pt denies chest pain or abd pain
Objective Data
-
Labs:
Laboratory Results
07/30/23
09:08
WBC Pending
Hgb Pending
Hct Pending
Plt Count Pending
Sodium Pending
Potassium Pending
Chloride Pending
Carbon Dioxide Pending
BUN Pending
Creatinine Pending
Glucose Pending
Calcium Pending
Vital Signs:
Vital Signs
Temp Pulse Resp BP Pulse Ox
98.0 F 90 16 141/96 98
07/30/23 07:42 07/30/23 08:46 07/30/23 07:42 07/30/23 08:46 07/30/23 07:42
I&O
07/29/23 07/30/23 07/31/23
06:59 06:59 06:59
Intake Total 600 / 600 1150 / 1150
Output Total 1785 / 1785 1025 / 1025 300 / 300
Balance -1185 / -1185 125 / 125 -300 / -300
--- NOTE | 2023-07-30 10:27 | W.PN.CRS1 ---
Today's Communication / Plan
-
wound care
diet
?drain study
Assessment/Plan
-
67 yo male with a h/o DVT/PE on Eliquis (LD 07/23), stage 4 lung ca on on taxotere/Cyramza, last 07/10/23 who initially presented with perforation of bowel secondary to complicated diverticulitis on 07/13/23 with Smith's procedure preformed
emergently. He was able to be discharged on 07/20 to continue his recovery at home as he was showing improvement. He presents this admission with increasing drainage from the base of the incision. Leukocytosis noted. CT imaging was done with
loculated postoperative fluid collections in the right lower quadrant measuring 5.7 x 3.5 cm and right posterior pelvis measuring 5.3 x 3.5 cm suspicious for developing abscesses.
1. IR cultures pending.
2. Vitals normal.
3. Continue IV antibiotics.
4. Eliquis has been restarted.
5. Local wound care: Dry packing with dry dressing on top. No longer wet to dry dressings. Change daily. Patient will follow-up with the wound clinic as an outpatient.
6. Continue low residue diet.
7. Dispo: Home with [facility] visiting nurses.
8. I will reach out to IR to see if he requires a drain study/imaging prior to d/c.
Subjective Data
Procedure
07/27/2023- IR drain placement
Subjective Data
Date of Service: July 30, 2023
Patient states he has no complaints. He would like to go home. He is tolerating a diet with supplements.
Objective Data
-
Vital Signs
Temp Pulse Resp BP Pulse Ox
98.0 F 90 16 141/96 98
07/30/23 07:42 07/30/23 08:46 07/30/23 07:42 07/30/23 08:46 07/30/23 09:07
Intake & Output
07/29/23 07/30/23 07/31/23
06:59 06:59 06:59
Intake Total 600 / 600 1150 / 1150
Output Total 1785 / 1785 1025 / 1025 300 / 300
Balance -1185 / -1185 125 / 125 -300 / -300
Intake:
Oral fluids 600 / 600 900 / 900
IV fluids (Total) 0 / 0 0 / 0
IV piggybacks 0 / 0 240 / 240
Amount instilled into Drain (
Total)
Right Sacrum Placed in IR
Output:
Liquid stool amount 170 / 170 370 / 370 300 / 300
Colostomy 170 / 170 370 / 370 300 / 300
Drain Output (Total) 30 / 30
Right Sacrum Placed in IR 20 / 30
Urine, Voided 1595 / 1595 625 / 625
Physical Exam
-
General: No Acute Distress and AOx3
Abdomen: Soft, Non Distended and Non Tender
Wound: Dressing Changed
[2023-07-30 10:45] LABS: % Basophils 0.9 % (0-2); % Eosinophils 0.1 % (0-6); % Immature Granulocytes 0.4 % (0-0.5); % Lymphocytes 11.8 % (20.5-51.1); % Monocytes 11.6 % (1.7-9.3); % Neutrophils 75.2 % (42.2-75.2); Absolute Basophils 0.1 10^3/uL (0-0.2); Absolute Lymphocytes 1.3 10^3/uL (1.2-3.4); Absolute Monocytes 1.3 10^3/uL (0.1-0.6); Absolute Neutrophils 8.3 10^3/uL (1.4-6.5); Hemoglobin 10.3 g/dL (13.0-18.0); Mean Corp Hgb Conc. 33.2 g/dL (33.0-37.0); Mean Corpuscular Hgb 32.5 pg (27.0-31.0); Mean Corpuscular Volume 97.8 fL (80.0-94.0); Mean Platelet Volume 8.7 fL (7.4-10.4); Nucleated Red Blood Cells % 0 % (-); Platelet Count 450 10^3/uL (130-400); Red Blood Cell Count 3.17 10^6/uL (4.70-6.10); Red Cell Dist. Width 14.1 % (11.5-14.5)
--- NOTE | 2023-07-30 10:48 | W.PN.ONC ---
Addendum entered and electronically signed by Edson Antonio DO 07/30/23 11:45:
Patient independently examined and chart reviewed. Patient expresses continued anorexia. Anticoagulation reinitiated. Transition antibiotics. Continue supportive care follow-up in the office to review additional plans for treatment.
Original Note:
Today's Communication / Plan
-
Management of infection per ID: Unasyn, transition to PO at discharge
Diet as tolerated, encouraged clear liquids/full liquids
Consider pre-medicating prior to meals for comfort with eating
Supportive care
Eliquis resumed
Further management of lung cancer to be determined. Systemic therapy is on hold pending recoery from surgery/infection.
[place] office has been updated of patient's clinical status. VNA at discharge. Will follow along.
Impression
Impression
Abdominal abscesses s/p emergent bowel resection 07/13/23 for perforated diverticulitis
Stage IV lung cancer, on Taxotere/Cyramza, last 07/10/23
Hx Myasthenia gravis
DVT of right IJ, SVC, on Eliquis
Oral mucositis with ulcerations (improving)
Poor appetite, nausea
Hearing impairment
Subjective/Objective
Subjective/Objective
Patient is tolerating water ice, jello, 1 bite of toast. Mouth ulcers appear improved. Family at bedside. Patient is a little nauseas at times. family is anxious in regards to premature discharge as they have been back and forth to the hospital
multiple times.
Vital Signs:
Vital Signs
Temp Pulse Resp BP Pulse Ox
98.0 F 90 16 141/96 98
07/30/23 07:42 07/30/23 08:46 07/30/23 07:42 07/30/23 08:46 07/30/23 09:07
physical exam:
aaox3, [place], pallor
mouth ulcers improved
right-side CHEN drain with purulent output
Lab Results:
Laboratory Data
WBC 11.0 10^3/uL (4.8-10.8) H 07/30/23 10:19
Hgb 10.3 g/dL (13.0-18.0) L 07/30/23 10:19
Plt Count 450 10^3/uL (130-400) H 07/30/23 10:19
eGFR > 60.00 07/28/23 07:31
[2023-07-30 11:11] LABS: Blood Urea Nitrogen 7 mg/dl (9-20); Calcium 9.2 mg/dl (8.4-10.2); Carbon Dioxide 28 mmol/L (22-30); Chloride 97 mmol/L (98-107); Estimated Creatinine Clearance 118 ml/min; Glucose 114 mg/dl (70-99); Potassium 4.1 mmol/L (3.5-5.1); Sodium 129 mmol/L (135-145); eGFR > 60.00
--- NOTE | 2023-07-30 11:23 | WOUNDNOTE ---
[facility] RN note: Patient more alert today. Appetite poor. Stoma pink and slightly budded, oval shaped. Peristomal skin intact. Reinstructed appliance change using Chandler wafer # [id number], Kody seal (pinch up at 3 and 9 o'clock to fill in skin
dip), and Chandler pouch # [id number]. changed patient's ostomy appliance with verbal cues, minimal assistance. Instructed hand hygiene with ostomy care. Surgeon changed midline abdominal packing this am as per son Anand. Sacral and heel skin intact
without redness. Waffle air overlay in place. Heels off bed with pillow.
[2023-07-30 11:45] VITALS: BP 126/86; PULSE 92
--- NOTE | 2023-07-30 15:08 | W.PN.UPDATE ---
Update Note
Progress Note Update
I spoke with IR. Dr. Walters and I discussed his case. He believes a drain study probably would not be appropriate at this time as if the second collection is not communicating, he wouldn't been seen when injected contrast is going through the
tube. A CT will be better to tell us if the second collection is being drained. However is probably too early for testing at this time as the drains are still draining and he is feeling better so is probably best to wait a few weeks until
reimaging. I discussed the above with his via phone.
[2023-07-30 15:31] VITALS: BP 125/83
--- NOTE | 2023-07-30 16:09 | PTCARENOTE ---
Received pt AOx3, pleasant but withdrawn and forgetful at times. Generalized weakness, sat in chair for 30 minutes, walked, x1 w/ RW, a few steps in the [place] w/ PT. Speech garbled and soft spoken. Family at bedside, addressed questions and concerns
to Dr Ny and Dr Gold. Plan of care discussed. Intermittent belching and nausea through the shift. Poor po intake, encouraged drinking water when able. PRN Compazine given in the afternoon w/ brief relief. Midline ab dressing changed by Dr Ny
this AM, c/d/i. Colostomy w/ loose brown stool. R buttock CHEN drain flushed w/ 10ml NS as ordered, purulent drainage noted. Full assessment as documented. Will continue to monitor.
[2023-07-30 16:16] VITALS: BMI 27.1
--- NOTE | 2023-07-30 17:13 | W.PN.ID1 ---
Date of Service
Date of Service: July 30, 2023
Today's Communication
continue unasyn
Assessment / Plan
Leukocytosis; trending down.
Wound infection
Abdominal abscesses
- s/p drainage; culture with E. coli.
Lung CA with liver mets on Taxotere, Cyramza, steroid
hx SVC syndrome
BPH
GERD
Hypertension
Myasthenia gravis, on Cellcept
Diverticulitis
Chronic LE edema
[place]
Hard of hearing
Recommendations:
C/w Unasyn for the present
Follow CHEN output.
Monitor white count and temperature curve. Local care to the abdominal wound.
Chief Complaint
-: Other (Abdominal abscess.)
Subjective / Review of Systems
afebrile
bp stable
without leukocytosis or L shift
cr stable
Vital Signs / Physical Exam
Vital Signs
Vital Signs
Temp Pulse Resp BP Pulse Ox
98.6 F 91 16 125/83 96
07/30/23 15:31 07/30/23 15:31 07/30/23 15:31 07/30/23 15:31 07/30/23 15:31
Physical Exam
Constitutional: No Acute Distress
Cardiovascular: Regular Rate and S1/S2; Negative Murmur or Rub
Pulmonary: Clear and Symmetric; Negative Wheezes or Rales
Gastrointestinal: Soft, Non Tender, Non Distended and Normal Bowel Sounds
Musculoskeletal: Other (drain remains purulent)
Skin: Warm and Dry; Negative Rash or Jaundice
Objective Data
Lab Data
Lab Results
07/30/23 10:19
07/30/23 10:18
Estimated Creat Clear 118 ml/min 07/30/23 10:18
Lactic Acid Cancelled 07/24/23 21:18
Total Bilirubin 0.7 mg/dl (0.2-1.3) 07/25/23 04:55
AST 36 U/L (17-59) 07/25/23 04:55
ALT 19 U/L (0-50) 07/25/23 04:55
Alkaline Phosphatase 57 U/L (38-126) 07/25/23 04:55
Most recent labs reviewed.
Micro Results:
07/24/23 19:01 Blood Culture - Final
Blood/Venous No Growth - Final Report
07/24/23 19:01 Blood Culture - Final
Blood/Venous No Growth - Final Report
07/27/23 12:37 Wound Culture - Final
Abscess Escherichia coli
Gram Stain - Final
Wound/abscess/other Cult Final 07/27/23
Many Escherichia coli
Organism 1 Escherichia coli
1. Escherichia coli
M.I.C. RX
--------- ---
Amoxicillin/Potas. Clavulanate <=8/4 S
Ampicillin <=8 S
Ampicillin/Sulbactam <=8/4 S
Cefazolin <=2 S
Ertapenem <=0.5 S
Ciprofloxacin >2 R
Gentamicin <=4 S
Levofloxacin >4 R
Meropenem <=1 S
Piperacillin/Tazobactam <=16 S
Tobramycin <=4 S
Trimethoprim/Sulfamethoxazole <=2/38 S
Imaging:
07/24/2023 CT abdomen/pelvis with contrast: There has been interval sigmoidectomy and left lower quadrant colostomy placement. There is loculated postoperative fluid collections in the right lower quadrant and right posterior pelvis measuring 5.7 x
3.5 cm and 5.3 x 3.5 cm respectively. These are suspicious for developing abscesses. Hepatic metastases are also noted. Please see full dictation for additional detail.
[2023-07-30] MEDS: MYCOSTATIN ORAL SUSPENSION PO ×2 (17:58→21:22)
[2023-07-30] MEDS: FIRST-MOUTHWASH BLM SUSPENSION 5 ML PO (21:26)
[2023-07-30 23:27] VITALS: BP 141/84
[2023-07-31] MEDS: ULTRAM 25 MG PO (00:51)
[2023-07-31] MEDS: ATIVAN 1 MG PO (01:47)
[2023-07-31 05:30] VITALS: BMI 27.5
[2023-07-31] MEDS: UNASYN IV (05:59)
[2023-07-31 07:30] VITALS: BP 144/88
[2023-07-31] MEDS: MYCOSTATIN ORAL SUSPENSION 5 ML PO ×3 (08:34→17:52)
[2023-07-31] MEDS: MESTINON 60 MG PO ×2 (08:34→17:52)
[2023-07-31] MEDS: LASIX 20 MG PO (08:34)
[2023-07-31] MEDS: KCL 20 MEQ PO (08:34)
[2023-07-31] MEDS: ELIQUIS 2.5 MG PO (08:35)
[2023-07-31] MEDS: CELEXA 10 MG PO (08:35)
[2023-07-31] MEDS: PROTONIX 40 MG PO ×2 (08:35→17:52)
[2023-07-31] MEDS: DIFLUCAN 100 MG PO (08:35)
[2023-07-31] MEDS: COMPAZINE 5 MG IV (08:36)
[2023-07-31] MEDS: FIRST-MOUTHWASH BLM SUSPENSION 5 ML PO ×2 (08:38→12:55)
--- NOTE | 2023-07-31 09:33 | W.PN.HOSP.TC ---
Addendum entered and electronically signed by Leonel Gold MD 08/01/23 13:05:
Addendum
Patient and wanted to go home if possible.
Discussed with ID doctor. Arrangements were made to discharge the patient on home antibiotic. Family wanted to keep intravenous antibiotic to better treat his infection. ID doctor discussed at length with the family
Family and colorectal surgery discussed goal of care. Family wanted to try to treat the infection and rehab at home before considering hospice care. Family was advised to follow-up with a primary oncologist Dr. Daniels for further recommendation.
Total discharge time spent to see the patient, examine the patient on the floor, review data and lab results, discuss discharge plan with patient, consultants, manager of case, IR doctor, nursing staff around 75 minutes.
Original Note:
Today's Communication/Plan
-
Possible dc today
Assessment / Plan
Assessment / Plan
Physical Exam:
General: chronically ill looking. Nontoxic
HEENT: Normocephalic, Anicteric, Atraumatic, Nose Appears Normal and Other (Very [place] without hearing AID )
Respiratory: Clear; No Wheezes, Rales or Rhonchi
Cardiac: S1/S2 and Regular Rhythm; No JVD
Breast: Deferred by me
GI: Soft, no tenderness, Ostomy (colostomy ) and Other (vertical abdominal incision, distal portion opened and still packed with less discharge today)
Musculoskeletal: No Cyanosis and No Edema
Skin: Warm and Dry
Neuro: Awake, Alert, AO x 3, No Motor Deficits, Cranial Nerves Intact (impaired hearing ) and Other
Psych: Calm, no agitation.
A/P:
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 Infected wound.
s/p sigmoidectomy and colostomy last week by Dr. Ny (Sent in by Dr. Melvin)
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
HX TME on last admission associated with sepsis
- resumed Eliquis.
- Cont IV Unasyn
-s/p IR drainage of abdominal collection Thursday07/27/23 (due to Eliquis washout). Plan to repeat CT study in OP.
-Blood cultures no growth
WBC normalizing
Appreciate surgery and ID help
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
urine sodium 124, urine osmolarity 594, serum osmolarity 281
-Stopped IV fluids, continue encourage oral intake.
-Sodium 129. No confusion.
Oral candidiasis
-Continue p.o. fluconazole and oral nystatin
Marginal Hypokalemia
HX Hypomagnesemia
HX Hypocalcemia and albuminemia
HX metastatic lung cancer on chemotherapy (Taxotere, Cyramza)
- Held Taxotere, Cyramza for now
- Primary oncologist Dr. Daniels and consult appreciated.
HX anemia - current Hgb 9.3 -
Anemia of cancer/inflammation/anemia of chronic disease
- Transfuse blood if hemoglobin less than 8
Chr Insomnia HX
- on chr Ativan 1 mg HS
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
Essential hypertension
- Back on BP medications including Lasix.\\
Hyperlipidemia
- no changes intended.
GERD
- IV Protonix
HX Myasthenia gravis
He denies weakness, double vision
- Hold mycophenolate
- cont pyridostigmine. Finished tapering prednisone per neurologist's recommendation.
Chronic lower extremity edema
- Resume Lasix.
BPH
Anxiety/depression
- on citalopram
DVT Px: SCD
Code: Reviewed living wishes. DNR/DNI
Total time spent to see the patient, examine the patient on the floor, review data and lab results, discuss treatment plan with patient, family, nursing staff around 57 minutes.
Anticipated Discharge: Today
Subjective/Interval History
-
Date of Service: July 31, 2023
No complaints
still poor appetite
No abd pain
No worsening cough
Objective Data
-
Vital Signs:
Vital Signs
Temp Pulse Resp BP Pulse Ox
98.0 F 94 18 144/88 96
07/31/23 07:30 07/31/23 07:30 07/31/23 07:30 07/31/23 07:30 07/31/23 07:30
I&O
07/30/23 07/31/23 08/01/23
06:59 06:59 06:59
Intake Total 1150 / 1150 230 / 230
Output Total 1025 / 1025 1070 / 1070
Balance 125 / 125 -840 / -840
--- NOTE | 2023-07-31 11:37 | W.PN.ID1 ---
Date of Service
Date of Service: July 31, 2023
Today's Communication
Joined goals of care discussion which was ongoing with colorectal surgery when I entered the room
Family would like to see how he is doing at home and remain undecided as to how to proceed
Encouraged family to discuss prognosis with oncology as well
From my perspective expected at least 4-8 weeks of further management of intraabdominal abscesses which may be complicated - no guarantees were given or implied.
While the two collections appear to communicate, I cannot definitely say that they do or will continue to. The deep collection may be very difficult to access if it doesnt communicate, its of a size where medical management alone would likely fail
if drainage could not be achieved
Usual management from my perspective is to follow drain output until it decreases significantly for 3 days and then reimage the abscesses to assess if drain repositioning or replacement is needed. I would anticipate him likely needing a
repositioning or replacement rather than removal given the clinical picture
Family requesting discharge, which is reasonable at this point
switched to IV ceftriaxone and oral metronidazole, script sent to case management and picc requested - plan 4 weeks of therapy
Follow CHEN output when consistently <20 ccs/day x3 days would have IR reevaluate, patients should contact us when that occurs
Assessment / Plan
Leukocytosis; trending down.
Wound infection
Abdominal abscesses
- s/p drainage; culture with E. coli.
Lung CA with liver mets on Taxotere, Cyramza, steroid
hx SVC syndrome
BPH
GERD
Hypertension
Myasthenia gravis, on Cellcept
Diverticulitis
Chronic LE edema
CLAUDIO
Hard of hearing
Recommendations:
Joined goals of care discussion which was ongoing with colorectal surgery when I entered the room
Family would like to see how he is doing at home and remain undecided as to how to proceed
Encouraged family to discuss prognosis with oncology as well
From my perspective expected at least 4-8 weeks of further management of intraabdominal abscesses which may be complicated - no guarantees were given or implied.
While the two collections appear to communicate, I cannot definitely say that they do or will continue to. The deep collection may be very difficult to access if it doesnt communicate, its of a size where medical management alone would likely fail
if drainage could not be achieved
Usual management from my perspective is to follow drain output until it decreases significantly for 3 days and then reimage the abscesses to assess if drain repositioning or replacement is needed. I would anticipate him likely needing a
repositioning or replacement rather than removal given the clinical picture
Family requesting discharge, which is reasonable at this point
switched to IV ceftriaxone and oral metronidazole, script sent to case management and picc requested - plan 4 weeks of therapy
picc line - we typically cannot
Follow CHEN output when consistently <20 ccs/day x3 days would have IR reevaluate, patients should contact us when that occurs
Chief Complaint
-: Other (Abdominal abscess.)
Subjective / Review of Systems
afebrile
bp stable
declining leukocytosis
no new labs today
somnolent on my exam
Vital Signs / Physical Exam
Vital Signs
Vital Signs
Temp Pulse Resp BP Pulse Ox
98.0 F 94 18 144/88 96
07/31/23 07:30 07/31/23 07:30 07/31/23 07:30 07/31/23 07:30 07/31/23 07:30
Physical Exam
Constitutional: No Acute Distress
Cardiovascular: Regular Rate and S1/S2; Negative Murmur or Rub
Pulmonary: Clear and Symmetric; Negative Wheezes or Rales
Gastrointestinal: Soft, Non Tender, Non Distended and Normal Bowel Sounds
Skin: Warm and Dry; Negative Rash or Jaundice
Lines: Other (port accessed)
Objective Data
Lab Data
Lab Results
07/30/23 10:19
07/30/23 10:18
Estimated Creat Clear 118 ml/min 07/30/23 10:18
Lactic Acid Cancelled 07/24/23 21:18
Total Bilirubin 0.7 mg/dl (0.2-1.3) 07/25/23 04:55
AST 36 U/L (17-59) 07/25/23 04:55
ALT 19 U/L (0-50) 07/25/23 04:55
Alkaline Phosphatase 57 U/L (38-126) 07/25/23 04:55
Most recent labs reviewed.
Micro Results:
07/24/23 19:01 Blood Culture - Final
Blood/Venous No Growth - Final Report
07/24/23 19:01 Blood Culture - Final
Blood/Venous No Growth - Final Report
07/27/23 12:37 Wound Culture - Final
Abscess Escherichia coli
Gram Stain - Final
Wound/abscess/other Cult Final 07/27/23
Many Escherichia coli
Organism 1 Escherichia coli
1. Escherichia coli
M.I.C. RX
--------- ---
Amoxicillin/Potas. Clavulanate <=8/4 S
Ampicillin <=8 S
Ampicillin/Sulbactam <=8/4 S
Cefazolin <=2 S
Ertapenem <=0.5 S
Ciprofloxacin >2 R
Gentamicin <=4 S
Levofloxacin >4 R
Meropenem <=1 S
Piperacillin/Tazobactam <=16 S
Tobramycin <=4 S
Trimethoprim/Sulfamethoxazole <=2/38 S
Imaging:
07/24/2023 CT abdomen/pelvis with contrast: There has been interval sigmoidectomy and left lower quadrant colostomy placement. There is loculated postoperative fluid collections in the right lower quadrant and right posterior pelvis measuring 5.7 x
3.5 cm and 5.3 x 3.5 cm respectively. These are suspicious for developing abscesses. Hepatic metastases are also noted. Please see full dictation for additional detail.
--- NOTE | 2023-07-31 12:18 | W.PN.CRS1 ---
Today's Communication / Plan
-
continue diet
antibiotics
calorie count
reglan
possible palliative care consult
Assessment/Plan
-
67 yo male with a h/o DVT/PE on Eliquis (LD 07/23), stage 4 lung ca on on taxotere/Cyramza, last 07/10/23 who initially presented with perforation of bowel secondary to complicated diverticulitis on 07/13/23 with Smith's procedure preformed
emergently. He was able to be discharged on 07/20 to continue his recovery at home as he was showing improvement. He presents this admission with increasing drainage from the base of the incision. Leukocytosis noted. CT imaging was done with
loculated postoperative fluid collections in the right lower quadrant measuring 5.7 x 3.5 cm and right posterior pelvis measuring 5.3 x 3.5 cm suspicious for developing abscesses.
1. IR cultures pending.
2. Vitals normal.
3. Continue IV antibiotics per ID.
4. Eliquis has been restarted.
5. Local wound care: Dry packing with dry dressing on top. No longer wet to dry dressings. Change frequency to BID. Patient will follow-up with the wound clinic as an outpatient.
6. Continue low residue diet. Calorie count due to lack of po intake. Start Reglan 10mgq6.
7. Dispo: Home with [facility] visiting nurses.
8. Long family discussion at bedside with and son and daughter in law. They are considering a hospice/palliative care option. We have spoken to Dr. Gold and they will consider a consult when they are ready.
Subjective Data
Procedure
07/27/2023- IR drain placement
Subjective Data
Date of Service: July 31, 2023
Patient is sleeping but answers questions when woken. He has no pain. He is not eating much per family.
Objective Data
-
Vital Signs
Temp Pulse Resp BP Pulse Ox
98.0 F 94 18 144/88 96
07/31/23 07:30 07/31/23 07:30 07/31/23 07:30 07/31/23 07:30 07/31/23 07:30
Intake & Output
07/30/23 07/31/23 08/01/23
06:59 06:59 06:59
Intake Total 1150 / 1150 230 / 230
Output Total 1025 / 1025 1070 / 1070
Balance 125 / 125 -840 / -840
Intake:
Oral fluids 900 / 900 220 / 220
IV fluids (Total) 0 / 0 0 / 0
IV piggybacks 240 / 240 0 / 0
Amount instilled into Drain (
Total)
Right Sacrum Placed in IR
Output:
Liquid stool amount 370 / 370 400 / 400
Colostomy 370 / 370 400 / 400
Drain Output (Total)
Right Sacrum Placed in IR
Urine, Voided 625 / 625 650 / 650
Lab Results
07/30/23 10:19
07/30/23 10:18
Physical Exam
-
General: No Acute Distress and AOx3
Abdomen: Soft, Non Distended and Non Tender
Wound: Dressing Changed (dry to dry dressing)
[2023-07-31] MEDS: ROCEPHIN 2000 MG IV (12:35)
[2023-07-31] MEDS: REGLAN 10 MG IV ×2 (12:35→17:52)
--- NOTE | 2023-07-31 13:57 | W.PN.ONC ---
Today's Communication / Plan
-
cont antibiotics per ID
post-op management as per colorectal surgery
outpt f/u w/ Dr. Daniels
Impression
Impression
Abdominal abscesses s/p emergent bowel resection 07/13/23 for perforated diverticulitis
Stage IV lung cancer
Hx Myasthenia gravis
DVT of right IJ, SVC, on Eliquis
Oral mucositis with ulcerations (improving)
Poor appetite, nausea
Hearing impairment
Plan
Plan
Mgmt of abscesses/infection per primary team and CRS
Antibiotics per IR
Further mgmt of lung cancer TBD, systemic therapy on hold pending recovery from infection and surgery
Will adjust outpt f/u w/ Dr. Daniels
Subjective/Objective
Subjective/Objective
no new complaints, famiy at bedside
Vital Signs:
Vital Signs
Temp Pulse Resp BP Pulse Ox
98.0 F 94 18 144/88 96
07/31/23 07:30 07/31/23 07:30 07/31/23 07:30 07/31/23 07:30 07/31/23 07:30
Lab Results:
Laboratory Data
WBC 11.0 10^3/uL (4.8-10.8) H 07/30/23 10:19
Hgb 10.3 g/dL (13.0-18.0) L 07/30/23 10:19
Plt Count 450 10^3/uL (130-400) H 07/30/23 10:19
eGFR > 60.00 07/30/23 10:18
--- NOTE | 2023-07-31 14:50 | CM ---
Addendum entered by TWYLA Burton 08/01/23 10:24:
Late Entry Note. PICC info and chest x ray information faxed over to [facility] and [facility]. Spoke with Kathie at [facility] who confirmed she was in receipt of all that was needed.
Original Note:
Received notification from ID that patient is medically stable for discharge. Script sent through TT. Placed a call to Darcie at [facility] who stated that she was unaware that patient will need infusion. Faxed over the facesheet, H&P, Most recent ID note,
Script, Picc Line, List of medications, most recent labs, chest x-ray and discharge instructions along with the PICC information to Darcie at [facility]. Provided original paperwork to Nata who came in from [facility]. She requested that when it becomes
available to fax it to her at: [phone].
Darcie stated that patient's daughter is a [facility] RN and can assist with administration of medication and they can start service on Thursday.
Will fax chest x-ray information and PICC info when it comes available.
Plan: Case management will continue to follow and assist with discharge planning. Home with [facility] VN and IV ABX.
[2023-07-31 15:30] VITALS: BP 126/79
--- NOTE | 2023-07-31 15:52 | VATNOTE ---
spoke with dr. coelho, radiologist re. xray film for picc placement. redirected per protocol. Dr chen updated on current status. Family updated as well. awaiting on repeat cxr now.
--- NOTE | 2023-07-31 17:23 | VATNOTE ---
attempted redirect and 2nd CXR film states coiled again. Dr. Gold reached for IR consult.
[2023-07-31] MEDS: FLAGYL 500 MG PO (17:52)
--- NOTE | 2023-07-31 18:38 | VATNOTE ---
right subq port deaccessed per protocol with 500 units of heparin flushed @ 1745
--- NOTE | 2023-08-01 06:26 | W.DCSUMMARY ---
Discharge Summary
Discharge Data
Date of Admission: 07/24/23
Date of Discharge: 07/31/23
-
Pending Results: No
Hospital Course
67 years old male with history of stage IV lung cancer and perforated bowel secondary to diverticulitis presented to the emergency room with increasing drainage from the base of his incision with leukocytosis. Patient was recently discharged from
the hospital on July 21, 2023 with Melo's procedure performed emergently after perforated bowel. Patient was doing well at home until noticed increasing discharge from his incision. Scan of the abdomen & pelvis showed loculated postoperative
fluid collections in the right lower quadrant and right posterior pelvis suspicious for developing abscesses. Patient was evaluated by colorectal surgery and interventional radiologist. He underwent drain placement by interventional radiology.
Patient received intravenous antibiotics. He was followed by infectious diseases doctor and oncology. Patient tolerated oral diet. He was followed by wound care nurse. His white cell count started to come down. He did not have fevers. Patient
and family were made aware that sometimes at least 4 to 8 weeks would require further management of intra-abdominal abscesses specially in patient's situation including any curable cancer, poor functional status, underlying medical problems. Family
expressed their wishes to be discharged home as soon as possible. His antibiotic regimen was changed to intravenous ceftriaxone and oral Flagyl. PICC line was placed. Interventional radiologist reported occlusion of the right brachiocephalic
vein, tip of the PICC line located in the right brachiocephalic vein and access should be adequate for intravenous antibiotics. 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 Patient was noticed to
have weakness with poor appetite. He was showing signs of failure to thrive. Patient expressed his wishes to recuperate at home if possible. He also expressed his wishes to remain DO NOT RESUSCITATE/DO NOT INTUBATE, family agreed. Long family
discussion with colorectal surgery regarding prognosis. Family was considering a hospice/palliative care option if no improvement. Family and patient were advised to follow-up with a primary oncologist upon discharge. He was noticed to have
hyponatremia which was likely combination of syndrome of inappropriate antidiuretic hormone secretion in addition to poor oral intake. Patient was given sodium chloride tablets. Patient was advised to follow-up with his primary care doctor within
1 week after discharge. Case management was involved in discharge planning. Physical therapy recommended home health services. Patient remained hemodynamically stable and was discharged in a stable condition.
Discharge Plan
-
Patient Disposition: Home with Home Care
Discharge Diagnosis/Procedures: Abdominal abscesses
Hyponatremia
Diet: Regular and Low Residue
Activity: No strenuous activity
Additional Activity: No lifting over 10lbs (gallon of milk)
Driving Restrictions: Not until seen by your Dr
Bathing Restrictions: OK to Shower
Blood Work: BMP & CBC in 5 days
Activity Restrictions/Additional Instructions:
Ostomy care
Change q 3-4 days and prn leakage.
Wilber wafer # [id number], Kody seal (pinched up at 3 and 9 o'clock to fill in crease) and Wilber pouch # [id number].
Call supply [employer] (list in folder provided) for monthly Ostomy supplies after discharge (ask VN to order supplies while on service).
Follow up with surgeon.
Call [facility] RN nurse for ostomy pouching concerns or leakage problems [phone] or [phone] or [phone].
Wound Care Instructions
Distal abdominal wound. Clean with saline, dry gauze gently packed at 12 O'clock and base of wound, cover with dry dressing and change twice a day and as needed for drainage.
Follow up at wound care center call for an appointment.
Instructions: Low Fiber Diet
Referrals:
Fadi Ny MD [Active] - in one to two weeks
Neema Daniels MD [Active] - in less than 1 week
Todd Gamboa MD [Family Provider] - in less than 1 week
Erin Meza MD [Active] - in two to three weeks
Prescriptions:
New
ceftriaxone 2 gram Recon Soln
2,000 mg IV Q24H Qty: 25 0RF
metronidazole 500 mg tablet
500 mg PO Q8H 28 Days Qty: 84 0RF
sodium chloride 1,000 mg tablet,soluble
1,000 mg PO BID Qty: 60 0RF
Continued
fluticasone propionate 1 SPRAY spray,suspension
2 spray intranasal DAILY
furosemide 20 MG tablet
20 mg PO BID
therapeutic multivitamin Tablet
1 tab PO DAILY
folic acid 1 mg Tablet
1 mg PO DAILY
saw palmetto 450 mg Capsule
450 mg PO DAILY
guaifenesin [Mucinex] 1,200 mg Tablet Extended Release 12hr
1,200 mg PO QPM
guaifenesin [Mucus Relief ER] 600 MG tablet extended release 12hr
600 mg PO DAILY
omega 6-[id number]-wwr-fish oil [Fish Oil] 1,200 (144-216) mg Capsule
1 cap PO DAILY
docusate sodium 100 MG capsule
100 mg PO BID
citalopram 10 mg tablet
10 mg PO DAILY
ondansetron HCl 8 mg tablet
8 mg PO Q8H PRN (Reason: nausea/vomiting)
prochlorperazine maleate 10 mg tablet
10 mg PO Q6H PRN (Reason: nausea)
fenofibrate 160 mg tablet
160 mg PO DAILY
potassium chloride 20 mEq tablet extended release
20 meq PO DAILY
atorvastatin 40 mg tablet
40 mg PO DAILY@1999
pantoprazole 40 mg tablet,delayed release (DR/EC)
40 mg PO BID@0700,1600
fluconazole 100 mg Tablet
100 mg PO DAILY 6 Days Qty: 6 0RF
pyridostigmine bromide 60 mg Tablet
60 mg PO TID 30 Days Qty: 90 0RF
Eliquis 2.5 mg Tablet
2.5 mg PO BID 30 Days Qty: 60 0RF
acetaminophen [Tylenol Extra Strength] 500 mg Tablet
1,000 mg PO Q8H PRN (Reason: mild/mod to severe pain) 5 Days Qty: 20 0RF
metoprolol succinate 25 mg Tablet Extended Release 24 Hr
25 mg PO BID 30 Days Qty: 60 0RF
Changed
nystatin 100,000 unit/mL Suspension
5 ml PO QIDPRN PRN (Reason: oral thrush) 3 Days Qty: 60 0RF
Discontinued
lidocaine-prilocaine 2.5-2.5 % cream
1 applic topical DAILY PRN (Reason: prior to port access)
mycophenolate mofetil 500 mg tablet
1,000 mg PO BID
prednisone 10 mg Tablet
10 mg PO DAILY 3 Days Qty: 3 0RF
amoxicillin-pot clavulanate 875-125 mg Tablet
1 tab PO Q12 6 Days Qty: 12 0RF
Discharge Orders:
Discharge Patient (As Directed); Ordered 07/31/23
Ordered By: Leonel Gold
Discharge Date and Time
Discharge Date/Time: 07/31/23 18:29
Print Language: GAMBIAN
--- NOTE | 2023-08-01 10:46 | CM ---
Received a call from Karyn at [facility] who stated that she needed, additional information on PICC placement. Faxed over everything available in chart.
--- NOTE | 2023-08-03 11:28 | PN.CDI ---
Addendum entered and electronically signed by Leonel Gold MD 08/04/23 09:56:
moderate protein calorie malnutrition
Original Note:
CDI
- -
CDI:
Physician Documentation Request
Admit Date: 07/24/23 20:08
Dear Doctor Alla,
Please review the following and provide your response in the progress notes.
Clinical Indicators:
- 4/5 Produce Team Member note indicates moderate protein calorie malnutrition
- Unintentional weight loss >10% in 6 months
- Nutrient intake </= 75% of estimated energy needs, >/= 1 month
Based on the information, which of the following most accurately represents the patient's nutritional status?
Moderate protein calorie malnutrition
Other
[place] Criteria ([facility] Hospitalist 2017)
2 or more criteria must be present for either
non severe or severe malnutrition
Note that the criteria differs related to the
presence of an acute or chronic illness
Acute Illness Chronic Illness
Energy Intake Non Severe: <75% for >7 days Non Severe: <75% for >1 month
Severe: <50% for >5 days Severe: <75% for >1 month
Weight Loss Non Severe: 1-2% over 1 week Non Severe: 5% over 1 month
5% over 1 month 7.5% over 3 months
7.5% over 3 months 10% over 6 months
1 year N/A 20% over 1 year
Severe: >2% over 1 week Severe: >5% over 1 month
>5% over 1 month >7.5% over 3 months
>7.5% over 3 months >10% over 6 months
1 year N/A >20% over 1 year
Body Fat Non Severe: Mild Decrease Non Severe: Mild Loss
Severe: Moderate Decrease Severe: Severe Loss
Muscle Mass Non Severe: Mild Decrease Non Severe: Mild Loss
Severe: Moderate Decrease Severe: Severe Loss
Fluid Accumulation Non Severe: Mild Accumulation Non Severe: Mild Accumulation
Severe: Moderate to severe Severe: Moderate to severe
accumulation accumulation
Reduced Psychologist Private [employer] Strength Non Severe: N/A Non Severe: N/A
Severe: Measurably reduced Severe: Measurably reduced
Additional criteria that can be used to Determine if Mild or Moderate Malnutrition ([employer] Manual 2018)
Mild Moderate Severe
Albumin gm/dl <3.0 gm/dl <2.5 gm/dl <2.0 gm/dl
Pre Albumin mg/dl <15 gm/dl <10 mg/dl <5.0 mg/dl
BMI <18.5 <17 <16
Use of terms such as suspected, likely, concern for, or probable (associated with a specific diagnosis that is being evaluated, monitored, or treated as if it exists) are acceptable and can be coded in the inpatient setting, when documented at the
time of discharge.
Thank you,
Yvette Eric RN
CDI Specialist
Please use your independent medical judgment in providing your response.
== END 2023-07-31 18:29 | disposition home health service (06) | DRG 862 ==
LOC: 3 WEST ACU 20:08
PROVIDERS: Emergency Medicine; Hospitalist; Nurse Practitioner; Radiology Diagnostic Radiology; Radiology Vascular & Interventional Radiology; ADMITTING PHYSICIAN Internal Medicine; ATTENDING PHYSICIAN Internal Medicine; CONSULT PHYSICIAN Internal Medicine Hematology & Oncology; CONSULT PHYSICIAN Internal Medicine Infectious Disease; EMERGENCY PHYSICIAN Emergency Medicine; FAMILY PHYSICIAN Family Medicine; OTHER PHYSICIAN Surgery
PROC: 0W9J30Z Drainage of Pelvic Cavity with Drainage Device, Percutaneous Approach (ICD-10-PCS; 2023-07-27)
PROC: 05H533Z Insertion of Infusion Device into Right Subclavian Vein, Percutaneous Approach (ICD-10-PCS; 2023-07-31)
DX: T81.43XA Infection following a procedure, organ and space surgical site, initial encounter (principal); K65.1 Peritoneal abscess; B37.0 Candidal stomatitis; C34.10 Malignant neoplasm of upper lobe, unspecified bronchus or lung; C78.7 Secondary malignant neoplasm of liver and intrahepatic bile duct; D84.821 Immunodeficiency due to drugs; E22.2 Syndrome of inappropriate secretion of antidiuretic hormone; T82.594A Other mechanical complication of infusion catheter, initial encounter; E44.0 Moderate protein-calorie malnutrition; K21.9 Gastro-esophageal reflux disease without esophagitis; I10 Essential (primary) hypertension; G70.00 Myasthenia gravis without (acute) exacerbation; H91.90 Unspecified hearing loss, unspecified ear; E87.6 Hypokalemia; F51.04 Psychophysiologic insomnia; D63.0 Anemia in neoplastic disease; N40.0 Benign prostatic hyperplasia without lower urinary tract symptoms; G47.33 Obstructive sleep apnea (adult) (pediatric); F32.A Depression, unspecified; E78.1 Pure hyperglyceridemia; F41.9 Anxiety disorder, unspecified; K12.30 Oral mucositis (ulcerative), unspecified; B96.20 Unspecified Escherichia coli [E. coli] as the cause of diseases classified elsewhere; K22.70 Barrett's esophagus without dysplasia; Y71.2 Prosthetic and other implants, materials and accessory cardiovascular devices associated with adverse incidents; K44.9 Diaphragmatic hernia without obstruction or gangrene; Y83.2 Surgical operation with anastomosis, bypass or graft as the cause of abnormal reaction of the patient, or of later complication, without mention of misadventure at the time of the procedure; Y92.9 Unspecified place or not applicable; Z93.3 Colostomy status; Z87.19 Personal history of other diseases of the digestive system; Z79.69 Long term (current) use of other immunomodulators and immunosuppressants; Z87.891 Personal history of nicotine dependence; Z90.49 Acquired absence of other specified parts of digestive tract; Z79.01 Long term (current) use of anticoagulants; Z79.51 Long term (current) use of inhaled steroids; Z79.52 Long term (current) use of systemic steroids; Z79.624 Long term (current) use of inhibitors of nucleotide synthesis; Z66 Do not resuscitate; Z86.718 Personal history of other venous thrombosis and embolism; Z86.711 Personal history of pulmonary embolism; Z86.73 Personal history of transient ischemic attack (TIA), and cerebral infarction without residual deficits; Z80.3 Family history of malignant neoplasm of breast; Z68.27 Body mass index [BMI] 27.0-27.9, adult
CPT/HCPCS: 36597; 36598; 49406; 71045; 74177; 76000; 80048; 80053; 81003; 82962; 83605; 83735; 83930; 83935; 84300; 85025; 85027; 87040; 87070; 87077; 87186; 87205; 96361; 96365; 96375; 97116; 97163; 97166; 99152; 99285; C1769; Q9967